=== PATIENT | male | born 1955 | race Caucasian/White ===

== ENCOUNTER 2017-08-06 15:03 | Inpatient (IN) | payer OTHER, MEDICAID ==
--- NOTE | 2017-08-06 15:39 | EDPHY ---
H & P Time Seen by Provider: 08/06/17 15:10 HPI/ROS: CHIEF COMPLAINT: Increasing weakness and unable to get out of bed HISTORY OF PRESENT ILLNESS: Long history of multiple sclerosis. The patient usually manages at home but today his legs were too stiff in his weakness was so great that he had called the fire department twice for lift assist which is not normal for him. He started feeling sick about 2 nights ago with cloudy urine and lower and upper back pain and urinary urgency which he thinks are his typical UTI symptoms. Weakness started then and is worse today. At 5:00 a.m. Today he had to awaken to self cath legs and bladder spasm and urinary urgency which is very unusual. His weakness is severe at this point. He was unable to get himself out of the bed at home. Not associated with fever chills or difficulty with speaking or anything focal. REVIEW OF SYSTEMS: Eye: no change in vision ENT: no sore throat Cardiac: no chest pain or syncope Pulmonary: no cough or SOB Abdomen: no vomiting, diarrhea, abdominal pain Musculoskeletal: Back and leg spasms. Skin: buttock rash, unchanged Neuro: no headache Constitutional: no fever : HPI A comprehensive 10 point review of systems is otherwise negative aside from elements mentioned in the history of present illness. PAST MEDICAL HISTORY: Includes multiple sclerosis and multiple UTIs. Thyroid removal, thyroid cancer, TIA. Social history: Lives independently General Appearance: Alert and conversant, cooperative. Eyes: No scleral icterus. ENT, Mouth: Normal mucous membranes. Respiratory: Normal respiratory effort, breath sounds equal, lungs are clear to auscultation. Cardiovascular: Regular rate and rhythm. Gastrointestinal: Abdomen is soft and non tender. Neurological: Alert, responds appropriately to commands, fluent speech, face symmetric. Left arm strength greater than right which is typical for him as he uses his right hand on his wheelchair joystick and uses left arm for most strength requirements. Skin: Some redness bilaterally and his buttock area at but no skin breakdown or evidence of cellulitis or lymphangitis. Musculoskeletal: No peripheral edema. Psychiatric: Not agitated. Emergency Department course/MDM: CBC chemistry and urinalysis. Likely admission for worsening weakness, probable pyelonephritis with systemic symptoms including elevated white blood cell count and systemic weakness. Primary care is Dr. Novak, neurologist is Gilbert Jenkins. 1614: White blood cell count [id number] with positive urinalysis. Will admit for UTI with worsening multiple sclerosis. Previous urine cultures reviewed on 02/21 and 08/24/2016 and 08/14/2015 all E coli or Klebsiella sensitive to everything except amoxicillin once. The patient also has a history of Enterococcus. He said he has had Rocephin multiple times before without any adverse reaction. Plan for IV ceftriaxone 1 g and IV doxycycline to cover for enterococcus. Has elevated WBC, but does not have SIRS criteria on arrival. Smoking Status: Never smoked Constitutional: Initial Vital Signs Temperature (C) 37.3 C 08/06/17 15:13 Heart Rate 85 08/06/17 15:13 Respiratory Rate 16 08/06/17 15:13 Blood Pressure 134/80 H 08/06/17 15:13 O2 Sat (%) 97 08/06/17 15:13 O2 Delivery Mode Room Air Allergies/Adverse Reactions: Penicillins Allergy (Severe, Verified 08/06/17 15:10) Anaphylaxis iodine Allergy (Mild, Verified 08/06/17 17:34) Rash Home Medications: Medication Instructions Recorded Baclofen [Baclofen 10 mg (*)] 5 mg PO Q2H PRN 09/07/13 Aspirin [Aspirin 81mg (*)] 81 mg PO HS 09/26/14 Dalfampridine [AMPYRA] 10 mg PO BIDMEAL 09/26/14 Cholecalciferol Vit D3 [Vitamin D3 3,000 units PO DAILY 01/12/15 (*)] Gabapentin [Neurontin 300 MG (*)] 1,200 mg PO HS PRN 01/12/15 Gabapentin [Neurontin 300 MG (*)] 300 mg PO TIDMEAL 01/12/15 Oxybutynin Chloride [Ditropan] 5 mg PO HS 01/12/15 Diazepam [Valium 5 MG (*)] 5 mg PO HS PRN 10/21/15 Levothyroxine [Synthroid 125 mcg 125 mcg PO DAILY06 10/21/15 (*)] Methenamine Hippurate [METHENAMINE 1 g PO BID 10/21/15 HIPPURATE] Gabapentin [Neurontin 300 MG (*)] 300 mg PO DAILY@18 08/06/17 Herbals/Supplements -Info Only 1 ea PO DAILY 08/06/17 Naproxen Sodium [Aleve 220 MG (*)] 220 mg PO DAILY 08/06/17 Ocrevus 600 mg IV Q6M 08/06/17 Potassium Chloride [Klor-Con 10] 10 meq PO DAILY@18 08/06/17 traMADol [Ultram 50 mg (*)] 50 mg PO BID PRN 08/06/17 Medical Decision Making Differential Diagnosis: Differential considered including but not limited to renal colic, UTI, urinary retention, pyelonephritis Consult/Admit Bed Type: [place] [address] - Data Points Laboratory Results: Laboratory Results 08/06/17 15:50 08/06/17 15:50 08/06/17 08/06/17 08/06/17 15:50 15:50 15:35 WBC 19.53 10^3/uL H 10^3/uL (3.80-9.50) RBC 5.06 10^6/uL 10^6/uL (4.40-6.38) Hgb 16.9 g/dL g/dL (13.7-17.5) Hct 49.8 % % (40.0-51.0) MCV 98.4 fL fL (81.5-99.8) MCH 33.4 pg pg (27.9-34.1) MCHC 33.9 g/dL g/dL (32.4-36.7) RDW 12.7 % % (11.5-15.2) Plt Count 152 10^3/uL 10^3/uL (150-400) MPV 11.0 fL fL (8.7-11.7) Neut % (Auto) 87.4 % H % (39.3-74.2) Lymph % (Auto) 5.1 % L % (15.0-45.0) Gates % (Auto) 6.8 % % (4.5-13.0) Eos % (Auto) 0.0 % L % (0.6-7.6) Baso % (Auto) 0.2 % L % (0.3-1.7) Nucleat RBC Rel Count 0.0 % % (0.0-0.2) Absolute Neuts (auto) 17.09 10^3/uL H 10^3/uL (1.70-6.50) Absolute Lymphs (auto) 0.99 10^3/uL L 10^3/uL (1.00-3.00) Absolute Monos (auto) 1.32 10^3/uL H 10^3/uL (0.30-0.80) Absolute Eos (auto) 0.00 10^3/uL L 10^3/uL (0.03-0.40) Absolute Basos (auto) 0.03 10^3/uL 10^3/uL (0.02-0.10) Absolute Nucleated RBC 0.00 10^3/uL 10^3/uL (0-0.01) Immature Gran % 0.5 % % (0.0-1.1) Immature Gran # 0.10 10^3/uL 10^3/uL (0.00-0.10) Sodium 144 mEq/L mEq/L (135-145) Potassium 4.6 mEq/L mEq/L (3.5-5.2) Chloride 103 mEq/L mEq/L (97-110) Carbon Dioxide 29 mEq/l mEq/l (22-31) Anion Gap 12 mEq/L mEq/L (8-16) BUN 15 mg/dL mg/dL (7-23) Creatinine 0.8 mg/dL mg/dL (0.7-1.3) Estimated GFR > 60 Glucose 127 mg/dL H mg/dL (70-100) Calcium 9.5 mg/dL mg/dL (8.5-10.4) Urine Color YELLOW Urine Appearance HAZY Urine pH 6.0 (5.0-7.5) Ur Specific Sterling 1.011 (1.002-1.030) Urine Protein NEGATIVE (NEGATIVE) Urine Ketones NEGATIVE (NEGATIVE) Urine Blood NEGATIVE (NEGATIVE) Urine Nitrate NEGATIVE (NEGATIVE) Urine Bilirubin NEGATIVE (NEGATIVE) Urine Urobilinogen NEGATIVE EU EU (0.2-1.0) Ur Leukocyte Esterase 3+ H (NEGATIVE) Urine RBC 3-5 /hpf H /hpf (0-3) Urine WBC 50-182 /hpf H /hpf (0-3) Ur Epithelial Cells NONE SEEN /lpf /lpf (NONE-1+) Urine Bacteria 1+ /hpf H /hpf (NONE SEEN) Urine Yeast PRESENT /hpf /hpf (NONE SEEN) Urine Glucose NEGATIVE (NEGATIVE) Medications Given: Ceftriaxone Sodium/Dextrose (Rocephin 1 Gm (Premix)) 50 mls @ 100 mls/hr IV ONCE ONE Stop: 08/06/17 17:44 Last Admin: 08/06/17 17:00 Dose: 50 mls Discontinued Medications Diazepam (Valium) 5 mg IVP EDNOW ONE Stop: 08/06/17 17:18 Last Admin: 08/06/17 17:22 Dose: 5 mg Sodium Chloride (Ns) 1,000 mls @ 0 mls/hr IV EDNOW ONE; Wide Open PRN Reason: Protocol Stop: 08/06/17 16:49 Last Admin: 08/06/17 17:11 Dose: 1,000 mls Departure - Departure Dis[facility]: [facility] Acute Clinical Impression: Acute pyelonephritis Condition: Good
[2017-08-06 16:03] LABS: PLATELET COUNT 152 10^3/uL (150-400)
[2017-08-06] MEDS ORDERED: cefTRIAXone 1 GM in STERILE WATER INJ 10 ML IV ONE (16:32)
[2017-08-06] MEDS ORDERED: DOXYCYCLINE INJ 100 MG in NS 250 ML IV ONE (16:33)
[2017-08-06] MEDS ORDERED: NS 1,000 ML IV ONE ×2 (16:48)
[2017-08-06] MEDS ORDERED: cefTRIAXone 1 GM/DEXTROSE 1 GM/50 ML BAG IV ONE (17:03)
[2017-08-06] MEDS ORDERED: DIAZEPAM 5 MG/ML 1 ML SYR IVP ONE (17:17)
[2017-08-06] MEDS ORDERED: ACETAMINOPHEN 325 MG TAB PO PRN (17:29)
[2017-08-06] MEDS ORDERED: ONDANSETRON 4 MG/2 ML VIAL IVP PRN (17:29)
[2017-08-06] MEDS ORDERED: ONDANSETRON DISINTEGRATING 4 MG TAB PO PRN (17:29)
[2017-08-06] MEDS ORDERED: traMADol 50 MG TAB PO PRN (19:48)
[2017-08-06] MEDS: NS 1,000 ML IV SCH (20:09)
[2017-08-06] MEDS: METHENAMINE HIPP 1 GM TAB PO SCH (20:12)
[2017-08-06] MEDS: GABAPENTIN 300 MG CAP PO PRN (21:10)
[2017-08-06] MEDS: OXYBUTYNIN CHLORIDE 5 MG TAB PO SCH (21:11)
[2017-08-06] MEDS: DIAZEPAM 5 MG TAB PO PRN (21:11)
[2017-08-06] MEDS: ASPIRIN 81 MG CHEWABLE TAB PO SCH (21:11)
--- NOTE | 2017-08-06 21:12 | GHP ---
[f rep st] HISTORY AND PHYSICAL DATE OF ADMISSION: 08/06/2017 CHIEF COMPLAINT: Weakness. HISTORY OF PRESENT ILLNESS: This is a 62-year-old male with a history of fairly progressive MS. He is wheelchair bound. He does straight cath. He has had urinary tract infection in the past. Two da ys ago, he did have a little bit of discomfort with urination. He then had some increasing spasms, w hich he usually gets with urinary tract infections. He felt better yesterday, but then last night, t his again came back and worsened. This morning, he was too weak to get out of the bathroom and saldana d for assistance. The 2nd time he called for assistance, he came to the emergency department. He de nied any fevers or chills. No abdominal pain. No nausea, vomiting, or diarrhea. REVIEW OF SYSTEMS: A 10-point review of systems was obtained and, other than stated, was negative. PAST MEDICAL HISTORY: 1. MS, being followed by Dr. Jenkins. He is getting some biologics. 2. Multiple urinary tract infections. Last several have been E coli, although he has had enterococc us in the past. 3. Hypothyroidism. 4. Does straight cath with history of previous urinary tract infections. 5. History of thyroid cancer. 6. History of TIA. PAST SURGICAL HISTORY: Left thyroid removal. MEDICATIONS: Reviewed. SOCIAL HISTORY: Patient lives alone. He is not . 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 FAMILY HISTORY: No history of MS. PHYSICAL EXAM: VITAL SIGNS: Afebrile, blood pressure is 123/67, heart rate 92, oxygen saturation is 95% on room air. GENERAL: The patient is well developed, no apparent distress. HEENT: Nonicteric sclerae. Extraocular movements intact. Slightly dry mucous membranes. NECK: Supple. No thyromeg kendrick. LUNGS: Good effort. Clear to auscultation bilaterally. CARDIOVASCULAR: Regular rate and rhy thm. No murmurs, rubs, or gallops. ABDOMEN: Positive bowel sounds. Soft, nontender, nondistended. No hepatosplenomegaly. EXTREMITIES: No clubbing, cyanosis, or edema. There is atrophy. NEUROLOG IC: Alert and oriented x3. PSYCHIATRIC: Normal mood and affect. LABS: White blood cell count 19, hemoglobin 16, platelets 152. Chemistries normal. UA does show ur inary tract infection. ASSESSMENT AND PLAN: 1. This is 62-year-old male who does straight catheterize due to multiple sclerosis, presenting with urinary tract infection. Patient is being admitted. He has been given ceftriaxone in the emergency department as well as doxycycline. We will continue ceftriaxone and will hold on the doxycycline. It has been 3 years since his last enterococcus. We will wait for cultures. We will see what his wh ite blood cell count does. 2. Multiple sclerosis with spasm. We will give a dose of Valium right now for his spasms. We will continue his baclofen. 3. Deep vein thrombosis prophylaxis. [employer]. /[id number]/MODL
[2017-08-07] MEDS ORDERED: NS 1,000 ML IV ONE (02:11)
--- NOTE | 2017-08-07 03:27 | HOSPPROG ---
Hospitalist Progress Note Assessment/Plan: XC: Alerted by RN about SBP of 77. Patient mentating well but feeling weak on my evaluation. SBP improved to 85 after 500 mL bolus. Will continue fluid resuscitation and continue current course of treatment as long as he remains fluid responsive. If not fluid responsive, will broaden abx coverage and transfer to ICU. Objective: Vital Signs Temp Pulse Resp BP Pulse Ox 37.9 C 108 H 16 85/55 L 93 08/06/17 23:28 08/06/17 23:28 08/06/17 23:28 08/06/17 23:28 08/06/17 23:28 ICD10 Worksheet Patient Problems: Problems Problem Status Onset Acute pyelonephritis Acute Blurred vision Acute Fever Acute Generalized weakness Acute Multiple sclerosis Acute TIA (transient ischemic attack) Acute
[2017-08-07] MEDS: NS 1,000 ML IV SCH (04:11)
[2017-08-07] MEDS: BACLOFEN 10 MG TAB PO PRN ×4 (04:15→23:18)
[2017-08-07 04:51] LABS: PLATELET COUNT 109 10^3/uL (150-400)
[2017-08-07] MEDS: LEVOTHYROXINE 125 MCG TAB PO SCH (05:36)
[2017-08-07] MEDS ORDERED: NON-FORMULARY NEW DRUG (Dalfampridine [Ampyra] 10 MG) PO SCH (08:00)
[2017-08-07] MEDS: NAPROXEN SODIUM 220 MG TAB PO SCH (08:05)
[2017-08-07] MEDS: GABAPENTIN 300 MG CAP PO SCH ×3 (08:06→17:15)
[2017-08-07] MEDS: ENOXAPARIN 40 MG/0.4 ML SYR SC SCH (08:06)
[2017-08-07] MEDS: METHENAMINE HIPP 1 GM TAB PO SCH ×2 (08:06→20:40)
--- NOTE | 2017-08-07 09:25 | PDMN ---
Medical Necessity Medical necessity: Patient meets inpatient criteria per physician note and [facility] [place] [place] M -300 Pyelonephritis, Acute (history of fairly progressive MS, now w/c bound and self-cathing; history mult UTI's; leukocytosis/WBC > 19,000; hypotension to 70' s systolic and tachycardic to 108 after admission; anticipated LOS > 2 midnights for ongoing IV hydration and antibiotics.)
--- NOTE | 2017-08-07 10:11 | ASMTCASEMG ---
Living Arrangements What is your living Answers: Alone arrangement? Who do you live with? Type Of Residence What kind of residence do Answers: House you live in? Discharge Plan Comments Coordination Status Comments Notes: Pts case discussed w/ Cherry, pharmacist, SARAHY Rhodes, and Mary Abbott NP. Pt is a 62 y/o man admitted for a UTI, multiple sclerosis and pyelonephritis. Therapies have been ordered and awaiting recommendations. Needs are TBD. CM met w/ pt for dispo planning. Pt reports that he has a bottle caser through [facility]. Pt has snf skilled home health through [facility]. CM left a msg for Airam, his bottle caser (P#: [phone]). Pt is current w/ [facility]. Pt reports that he enjoys his [employer]. Updates sent to [facility]. CM to follow. Plan: [facility] Date Signed: 08/07/2017 10:10 AM Electronically Signed By:JOYCE Colby
--- NOTE | 2017-08-07 14:15 | HOSPPROG ---
Hospitalist Progress Note Assessment/Plan: 62y male with hx of MS and weakness. First encounter, chart reviewed. #UTI -urine cx pending -cont CTX -self caths due to MS #MS -increased weakness 2/2 infection -PT/OT #Hypotension -responded to fluid bolus -stable #Weakness -2/2 above -PT/OT #Dispo -wait urine cx results -cont abx therapy Subjective: Feeling much better today. Still weak, no pain. Objective: Vital Signs Temp Pulse Resp BP Pulse Ox 36.7 C 71 16 120/81 H 96 08/07/17 12:00 08/07/17 12:00 08/07/17 12:00 08/07/17 12:00 08/07/17 12:00 Laboratory Results 08/07/17 04:15 08/07/17 04:15 08/06/17 08/07/17 08/08/17 05:59 05:59 05:59 Intake Total 1999 Balance 1999 - Physical Exam Constitutional: appears nourished, not in pain, chronically ill appearing Eyes: PERRL, anicteric sclera, EOMI Ears, Nose, Mouth, Throat: moist mucous membranes, hearing normal, ears appear normal Cardiovascular: No JVD, No tachycardia, No edema Respiratory: no respiratory distress, no rales or rhonchi, reduced air movement Gastrointestinal: normoactive bowel sounds, No tenderness, No ascites Skin: warm, normal color, No mottled Musculoskeletal: no joint effusions, muscular tenderness, generalized weakness Neurologic: AAOx3 Psychiatric: interacting appropriately, not anxious, not encephalopathic, thought process linear ICD10 Worksheet Patient Problems: Problems Problem Status Onset Blurred vision Acute Multiple sclerosis Acute TIA (transient ischemic attack) Acute Fever Acute Generalized weakness Acute Acute pyelonephritis Acute
[2017-08-07] MEDS: POTASSIUM CL 10 MEQ TAB PO SCH (17:12)
[2017-08-07] MEDS: NON-FORMULARY NEW DRUG (Dalfampridine [Ampyra] 10 MG) PO SCH (17:21)
[2017-08-07] MEDS ORDERED: NON-FORMULARY NEW DRUG (Potassium Chloride [Klor-Con 10] 10 MEQ) PO SCH (18:00)
[2017-08-07] MEDS ORDERED: GABAPENTIN 300 MG CAP PO SCH (18:00)
[2017-08-07] MEDS: ASPIRIN 81 MG CHEWABLE TAB PO SCH (20:40)
[2017-08-07] MEDS: OXYBUTYNIN CHLORIDE 5 MG TAB PO SCH (20:40)
[2017-08-07] MEDS: DIAZEPAM 5 MG TAB PO PRN (23:18)
[2017-08-07] MEDS: GABAPENTIN 300 MG CAP PO PRN (23:18)
[2017-08-08] MEDS: LEVOTHYROXINE 125 MCG TAB PO SCH (05:05)
[2017-08-08] MEDS: ENOXAPARIN 40 MG/0.4 ML SYR SC SCH (08:07)
[2017-08-08] MEDS: NAPROXEN SODIUM 220 MG TAB PO SCH (08:08)
[2017-08-08] MEDS: METHENAMINE HIPP 1 GM TAB PO SCH ×2 (08:08→20:11)
[2017-08-08] MEDS: GABAPENTIN 300 MG CAP PO SCH ×3 (08:08→17:03)
--- NOTE | 2017-08-08 08:39 | HOSPPROG ---
Hospitalist Progress Note Assessment/Plan: 62y male with hx of progressive MS and weakness. First encounter, chart reviewed. #UTI -urine cx shows e coli, sensitivities pending -cont CTX -self caths due to MS #MS -increased weakness 2/2 infection -PT/OT -more weak than his baseline today, received baclofen and Valium last night, will hold Valium, he is more flaccid with muscle tone -if not better tomorrow, will ask neurology to see -I'm concerned he lives alone and is not close to his baseline -reviewed his care with OT, recommendation is IP rehab, will order and see if he can qualify #Hypotension -resolved with hydration #Dispo -pending Subjective: Elfego said he is feeling extremely weak, more than his baseline. He said it is not a MS exacerbation. Objective: Vital Signs Temp Pulse Resp BP Pulse Ox 37.1 C 79 16 125/84 H 95 08/08/17 07:40 08/08/17 07:40 08/08/17 07:40 08/08/17 07:40 08/08/17 07:40 Laboratory Results 08/07/17 04:15 08/07/17 04:15 08/07/17 08/08/17 08/09/17 05:59 05:59 05:59 Intake Total 1999 1075 Output Total 437 Balance 1999 -3299 - Physical Exam Constitutional: chronically ill appearing, other (thin) Eyes: PERRL Ears, Nose, Mouth, Throat: hearing normal Cardiovascular: regular rate and rhythym Respiratory: no respiratory distress Gastrointestinal: normoactive bowel sounds Genitourinary: ryan in urethra Skin: warm Musculoskeletal: generalized weakness Neurologic: AAOx3 Psychiatric: interacting appropriately ICD10 Worksheet Patient Problems: Problems Problem Status Onset Acute pyelonephritis Acute Blurred vision Acute Fever Acute Generalized weakness Acute Multiple sclerosis Acute TIA (transient ischemic attack) Acute
[2017-08-08] MEDS: NON-FORMULARY NEW DRUG (Dalfampridine [Ampyra] 10 MG) PO SCH ×2 (10:04→17:04)
[2017-08-08] MEDS ORDERED: LACTULOSE 20 GM/30 ML UDCUP PO PRN (13:34)
[2017-08-08] MEDS ORDERED: MAGNESIUM HYDROXIDE 30 ML UDCUP PO PRN (13:34)
[2017-08-08] MEDS ORDERED: BISACODYL 10 MG SUPP PR PRN (13:34)
[2017-08-08] MEDS: POLYETHYLENE GLYCOL 3350 17 GM PKT PO SCH (16:31)
[2017-08-08] MEDS: POTASSIUM CL 10 MEQ TAB PO SCH (17:03)
[2017-08-08] MEDS: OXYBUTYNIN CHLORIDE 5 MG TAB PO SCH (20:11)
[2017-08-08] MEDS: ASPIRIN 81 MG CHEWABLE TAB PO SCH (20:11)
[2017-08-08] MEDS: SENNOSIDES/DOCUSATE SODIUM TAB PO SCH (20:12)
[2017-08-09] MEDS: LEVOTHYROXINE 125 MCG TAB PO SCH (04:37)
[2017-08-09] MEDS: NON-FORMULARY NEW DRUG (Dalfampridine [Ampyra] 10 MG) PO SCH ×2 (08:14→17:25)
[2017-08-09] MEDS: GABAPENTIN 300 MG CAP PO SCH ×3 (08:23→17:58)
[2017-08-09] MEDS: BACLOFEN 10 MG TAB PO PRN ×3 (08:23→20:57)
[2017-08-09] MEDS: NAPROXEN SODIUM 220 MG TAB PO SCH (08:24)
[2017-08-09] MEDS: METHENAMINE HIPP 1 GM TAB PO SCH ×2 (08:24→20:45)
[2017-08-09] MEDS: SENNOSIDES/DOCUSATE SODIUM TAB PO SCH ×2 (08:25→20:45)
[2017-08-09] MEDS: ENOXAPARIN 40 MG/0.4 ML SYR SC SCH (08:26)
[2017-08-09] MEDS: POLYETHYLENE GLYCOL 3350 17 GM PKT PO SCH (08:27)
--- NOTE | 2017-08-09 09:52 | HOSPPROG ---
Hospitalist Progress Note Assessment/Plan: 62y male with hx of progressive MS and weakness. #UTI -urine cx shows e coli, tubbs sensitive -cont CTX -self caths due to MS #MS, concerned he has an exacerbation -he has gotten progressively weaker even w treatment for UTI -spoke w neurology and they will see him #Hypotension -intermittent #Dispo -pending, spoke w Elfego that he will need more care, he wants to go home badly but now is requiring 3 people to get him oob Subjective: Elfego is very concerned about his increased weakness, has difficulty w eating, using the phone, can't get oob Objective: Vital Signs Temp Pulse Resp BP Pulse Ox 36.9 C 82 16 112/71 94 08/09/17 08:00 08/09/17 08:00 08/09/17 08:00 08/09/17 08:00 08/09/17 08:00 Laboratory Results 08/07/17 04:15 08/07/17 04:15 08/08/17 08/09/17 08/10/17 05:59 05:59 05:59 Intake Total 1075 1330 Output Total 4375 2575 Balance -3300 -1245 - Physical Exam Constitutional: not in pain, chronically ill appearing Eyes: PERRL Ears, Nose, Mouth, Throat: hearing normal Cardiovascular: regular rate and rhythym Respiratory: no respiratory distress Gastrointestinal: normoactive bowel sounds Musculoskeletal: other (significant weakness, having some spasticity today.) Neurologic: AAOx3 Psychiatric: interacting appropriately, depressed ICD10 Worksheet Patient Problems: Problems Problem Status Onset Acute pyelonephritis Acute Blurred vision Acute Fever Acute Generalized weakness Acute Multiple sclerosis Acute TIA (transient ischemic attack) Acute
--- NOTE | 2017-08-09 14:24 | ASMTCMCOM ---
CM Note CM Note Notes: Spoke with patient about discharge planning. RN and OT wondered if patient might need SNF since he required multiple people to assist him in transferring out of bed this morning. 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 When I spoke to him about SNF vs home with home care, he said that he was feeling significantly better than he did this morning when he too was concerned about his status. He feels comfortable going home, and in fact is requesting to do so. I will send [facility] updated notes in anticipation of his discharge tomorrow. I had also made referrals to [facility] and [facility] and will wait until tomorrow to alert them of patient's decision. I spoke with his [facility] dredge engineer Airam [phone] who requests that we let her know what patient's discharge plan is. She will be out of town until 08/15 but we can leave her a message. Date Signed: 08/09/2017 02:23 PM Electronically Signed By:Ruby Hernandez RN
--- NOTE | 2017-08-09 14:36 | NEUROPROG ---
Assessment: Will get brain and cervical MRI w/ and w/o con to assess multiple sclerosis status and see patient in morning. Objective: Vital Signs Temp Pulse Resp BP Pulse Ox 36.9 C 82 16 112/71 94 08/09/17 08:00 08/09/17 08:00 08/09/17 08:00 08/09/17 08:00 08/09/17 08:00 Laboratory Results 08/07/17 04:15 08/07/17 04:15 08/08/17 08/09/17 08/10/17 05:59 05:59 05:59 Intake Total 1075 1330 Output Total 6803 5332 Balance -1936 -2174 Allergies/Adverse Reactions: Penicillins Allergy (Severe, Verified 08/07/17 17:17) Anaphylaxis iodine Allergy (Mild, Verified 08/06/17 17:34) Rash
[2017-08-09] MEDS: POTASSIUM CL 10 MEQ TAB PO SCH (17:25)
[2017-08-09] MEDS: OXYBUTYNIN CHLORIDE 5 MG TAB PO SCH (20:45)
[2017-08-09] MEDS: ASPIRIN 81 MG CHEWABLE TAB PO SCH (20:45)
[2017-08-10] MEDS: BACLOFEN 10 MG TAB PO PRN ×4 (01:58→20:11)
[2017-08-10] MEDS: LEVOTHYROXINE 125 MCG TAB PO SCH (04:36)
[2017-08-10] MEDS: NAPROXEN SODIUM 220 MG TAB PO SCH (08:22)
[2017-08-10] MEDS: GABAPENTIN 300 MG CAP PO SCH ×3 (08:22→17:31)
[2017-08-10] MEDS: METHENAMINE HIPP 1 GM TAB PO SCH ×2 (08:22→20:11)
[2017-08-10] MEDS: ENOXAPARIN 40 MG/0.4 ML SYR SC SCH (08:26)
[2017-08-10] MEDS: SENNOSIDES/DOCUSATE SODIUM TAB PO SCH ×2 (08:27→20:13)
[2017-08-10] MEDS: POLYETHYLENE GLYCOL 3350 17 GM PKT PO SCH (08:28)
[2017-08-10] MEDS: NON-FORMULARY NEW DRUG (Dalfampridine [Ampyra] 10 MG) PO SCH ×2 (08:29→17:32)
[2017-08-10] MEDS ORDERED: DIAZEPAM 5 MG/ML 1 ML SYR IVP ONE (09:27)
--- NOTE | 2017-08-10 09:30 | HOSPPROG ---
Hospitalist Progress Note Assessment/Plan: 62y male with hx of progressive MS and weakness. #UTI -urine cx shows e coli, tubbs sensitive -cont CTX -self caths due to MS #MS, concerned he has an exacerbation -he has gotten progressively weaker even w treatment for UTI -initially declined the MRI, but now is willing to do it today, he's mostly concerned about his thoracic spine area, has very poor trunk control; will add thoracic to be evaluated -he is unable to self cath during his hospitalization stay #Hypotension -intermittent #Dispo -pending/ Elfego wants to go home "only" but still is requiring assist x 3. I think the MRI would be helpful to him getting an understanding of his MS. He has gone back and forth about getting the MRI's done. Will await and see, discussed his care with Dr Stoddard. Subjective: Elfego says he is feeling stronger. Objective: Vital Signs Temp Pulse Resp BP Pulse Ox 37.0 C 83 18 106/63 93 08/10/17 07:38 08/10/17 07:38 08/10/17 07:38 08/10/17 07:38 08/10/17 07:38 Laboratory Results 08/07/17 04:15 08/07/17 04:15 08/09/17 08/10/17 08/11/17 05:59 05:59 05:59 Intake Total 1330 250 Output Total 2575 1650 Balance -1245 -1400 - Physical Exam Constitutional: chronically ill appearing Eyes: PERRL Ears, Nose, Mouth, Throat: hearing normal Respiratory: no respiratory distress Genitourinary: ryan in urethra Skin: warm Musculoskeletal: generalized weakness Neurologic: AAOx3 Psychiatric: interacting appropriately ICD10 Worksheet Patient Problems: Problems Problem Status Onset Acute pyelonephritis Acute Blurred vision Acute Fever Acute Generalized weakness Acute Multiple sclerosis Acute TIA (transient ischemic attack) Acute
--- NOTE | 2017-08-10 09:44 | NEUROPROG ---
Assessment: [id number] - Neurology Consult: - CC: Inpatient consult for possible multiple sclerosis (MS) exacerbation - HPI: Pt has history of progressive multiple sclerosis (wheelchair bound) followed by Dr. Jenkins in my practice. His MS is treated with octrevus. He uses a urinary catheter at baseline for urination. On 08/04/17 he noted dysuria and spasms which have been present with prior UTIs. He noted on 08/06/17 he felt generally weak so he present to [facility] ER where he was admitted for suspected UTI. He was placed on antibiotics but felt he continued to get weaker and was concerned about a multiple sclerosis exacerbation. I initially saw the patient on 08/10/17. I recommended a brain and cervical MRI but the patient declined the study. He reported he prefers to speak with his neurologist, Dr. Jenkins, after discharge from the hospital to determine any need for MRI imaging. - PMHx: multiple sclerosis, multiple UTIs, hypothyroidism and thyroid cancer, TIA - SHx: lives alone FHx: no multiple sclerosis - ROS: Pt denied acute fever, total vision loss, active severe chest pain, respiratory failure, total body severe rash, psychosis, active seizures, or active bleeding; he does have bowel/bladder issues from multiple sclerosis - O: VS reviewed General: Alert Eyes: Fundoscopic exam not able to visualize optic disks CV: Heart RRR, no murmur, no carotid bruit Lungs: Clear to auscultation bilaterally, no rhonchi or rales Neuro: - Mental: . Oriented x person/place/date . concentration appears normal . speech fluency/comprehension normal . memory appears normal . fund of knowledge appear intact - Cranial Nerves: . II: PERRL, VFFTC . III/IV/: EOMI, no nystagmus, normal smooth pursuits, no Ptosis . V: facial sensation intact to LT . VII: face symmetric to eye closure and smile . VIII: hearing intact to conversation . IX/X: uvula raises symmetrically . XI: SCM 5/5 B/L strength . XII: tongue protrudes midline w/nl strength - Motor: . Tone: normal tone in all 4 extremity . Strength: R>L arm weakness, severe weakness in both legs - Reflexes: B/L bic/BR 2/4 - Sensory: all 4 extremity intact to light touch - Coord: problems with MARCELO with hands - Gait: deferred - Labs: 08/06/17- CBC WBC 19.53, Chem Gluc 127H, UA 3+ LE, 08/06/17 E.coli positive - Assessment: 1. Multiple Sclerosis: Pt is wheelchair bound and self caths at baseline due to progressive multiple sclerosis. He feels weaker and is concerned he may have an MS exacerbation. However, he declined any MRI imaging at this time and prefers to just f/u with his outpatient neurologist. - 2. UTI: treated by hospitalist on antibiotics - Plan: - Brain and Cervical MRI w/ and w/o con (patient declined study) - Agree with antibiotics for UTI - F/U with Dr. Jenkins 1-2 weeks after hospital discharge - No further neurologic w/u needed at this time as pt is declining evaluation. Objective: Vital Signs Temp Pulse Resp BP Pulse Ox 37.0 C 83 18 106/63 93 08/10/17 07:38 08/10/17 07:38 08/10/17 07:38 08/10/17 07:38 08/10/17 07:38 Laboratory Results 08/07/17 04:15 08/07/17 04:15 08/09/17 08/10/17 08/11/17 05:59 05:59 05:59 Intake Total 1330 250 Output Total 3575 8960 450 Balance -1245 -1400 450 Allergies/Adverse Reactions: Penicillins Allergy (Severe, Verified 08/07/17 17:17) Anaphylaxis iodine Allergy (Mild, Verified 08/06/17 17:34) Rash
[2017-08-10] MEDS ORDERED: GADOBUTROL 10 ML VIAL IVP ONE (14:40)
[2017-08-10] MEDS: POTASSIUM CL 10 MEQ TAB PO SCH (17:31)
[2017-08-10] MEDS: ASPIRIN 81 MG CHEWABLE TAB PO SCH (20:11)
[2017-08-10] MEDS: OXYBUTYNIN CHLORIDE 5 MG TAB PO SCH (20:11)
[2017-08-11] MEDS: BACLOFEN 10 MG TAB PO PRN ×4 (00:52→20:31)
[2017-08-11] MEDS: LEVOTHYROXINE 125 MCG TAB PO SCH (05:42)
[2017-08-11] MEDS: NAPROXEN SODIUM 220 MG TAB PO SCH ×2 (09:01→11:38)
[2017-08-11] MEDS: METHENAMINE HIPP 1 GM TAB PO SCH ×2 (09:01→20:29)
[2017-08-11] MEDS: SENNOSIDES/DOCUSATE SODIUM TAB PO SCH ×2 (09:01→21:15)
[2017-08-11] MEDS: ENOXAPARIN 40 MG/0.4 ML SYR SC SCH (09:02)
[2017-08-11] MEDS: GABAPENTIN 300 MG CAP PO SCH ×3 (09:02→18:08)
[2017-08-11] MEDS: NON-FORMULARY NEW DRUG (Dalfampridine [Ampyra] 10 MG) PO SCH ×2 (09:03→18:09)
[2017-08-11] MEDS: POLYETHYLENE GLYCOL 3350 17 GM PKT PO SCH (09:05)
--- NOTE | 2017-08-11 09:33 | HOSPPROG ---
Hospitalist Progress Note Assessment/Plan: 62y male with hx of progressive MS and weakness. #UTI -urine cx shows e coli, tubbs sensitive -received full treatment with ceftriaxone -self caths due to MS #MS -reviewed his care with Dr Stoddard, patient has lesions consistent w his MS/ reviewed his MRI w Dr Stoddard -will see if he improves with IV steroids x 3 days #spasticity -due to the above -should get better w steroids #Hypotension -intermittent #Dispo -hopefully, can go home Monday, he has 6 hours of home care, does not want to discuss going to SNF. Will await and see how he does with steroids. Subjective: Dru is c/o spasiticity to his lower extremeties. Objective: Vital Signs Temp Pulse Resp BP Pulse Ox 36.7 C 74 18 104/65 94 08/11/17 07:26 08/11/17 07:26 08/11/17 07:26 08/11/17 07:26 08/11/17 07:26 Laboratory Results 08/07/17 04:15 08/07/17 04:15 08/10/17 08/11/17 08/12/17 05:59 05:59 05:59 Intake Total 250 100 Output Total 1650 1974 Balance -1400 -6498 - Physical Exam Constitutional: not in pain, chronically ill appearing Eyes: PERRL Ears, Nose, Mouth, Throat: hearing normal Respiratory: no respiratory distress Gastrointestinal: normoactive bowel sounds Skin: warm Musculoskeletal: generalized weakness Neurologic: AAOx3 Psychiatric: interacting appropriately ICD10 Worksheet Patient Problems: Problems Problem Status Onset Acute pyelonephritis Acute Blurred vision Acute Fever Acute Generalized weakness Acute Multiple sclerosis Acute TIA (transient ischemic attack) Acute
--- NOTE | 2017-08-11 09:55 | NEUROPROG ---
Assessment: [id number] - Neurology Consult: - CC: Inpatient consult for possible multiple sclerosis (MS) exacerbation - Narrative Summary: Pt has history of progressive multiple sclerosis (wheelchair bound) followed by Dr. Jenkins in my practice. His MS is treated with ocrevus. He uses a urinary catheter at baseline for urination. On 08/04/17 he noted dysuria and spasms which have been present with prior UTIs. He noted on 08/06/17 he felt generally weak so he present to [facility] ER where he was admitted for suspected UTI. He was placed on antibiotics but felt he continued to get weaker and was concerned about a multiple sclerosis exacerbation. I initially saw the patient on 08/10/17. I recommended a brain and cervical MRI but the patient declined the study. He reported he prefers to speak with his neurologist, Dr. Jenkins, after discharge from the hospital to determine any need for MRI imaging. - HPI: F/U 08/11/17. Pt changed his mind and decided to have MRIs. Brain/cervical/ thoracic MRI results below but did not show any clear no enhancing lesions. We discussed his current status which is weaker than his baseline despite treating the UTI and we decided to try 3 days of IV steroids to see if this returns him to his baseline so he can discharge to his home. He is happy with that plan. No new complaints. - PMHx: multiple sclerosis, multiple UTIs, hypothyroidism and thyroid cancer, TIA - SHx: lives alone FHx: no multiple sclerosis - ROS: Pt denied acute fever, total vision loss, active severe chest pain, respiratory failure, total body severe rash, psychosis, active seizures, or active bleeding; he does have bowel/bladder issues from multiple sclerosis - Labs: 08/06/17- CBC WBC 19.53, Chem Gluc 127H, UA 3+ LE, 08/06/17 E.coli positive - Rads: Brain MRI w/ and w/o con: Multiple demyelinating plaques similar to the November 2015 study, without definite new demyelinating plaques or enhancing lesions. No acute hemorrhage, definite acute infarct, hydrocephalus or mass effect. Mild cerebral atrophy. Postcontrast images limited due to patient motion artifact. Cervical MRI w/ and w/o con: Limited due to patient motion artifact despite repeat series. Multiple demyelinating plaques, which are difficult to compare to the previous study due to patient motion artifact but appear at least at the C2-C3, C4-C5, C7 level, and probably upper thoracic spine at the T2 and T3 levels. No cord compression. C5-C6: Mild central canal stenosis and moderate to severe left neural foraminal stenosis secondary to moderate degenerative disk disease, with dorsal disk/osteophyte complex and bilateral uncovertebral osteophytes. Thoracic MRI w/ and w/o con: Demyelinating plaques in the thoracic spinal cord compatible with multiple sclerosis involving the upper and midthoracic regions, although difficult to visualize due to motion artifact. No evidence of thoracic compression fractures, cord compression, central canal stenosis or neural foraminal stenosis. No thoracic disk herniations or significant degenerative changes. 4. No definite enhancing lesions. Markedly limited due to patient motion artifact on all series, but especially the postcontrast. - Assessment: 1. Multiple Sclerosis: Pt is wheelchair bound and self caths at baseline due to progressive multiple sclerosis. Brain/cervical/thoracic MRI w/ and w/o con on showed no clear progression of MS but he remains weaker than baseline so we will give a course of 3 days of IV solumederol 1,000 mg/day and then reassess his status with hopes he can return to his home to live alone. - 2. UTI: treated by hospitalist on antibiotics - Plan: - 3 days of IV solumderol 1,000 mg/day for Multiple sclerosis exacerbation - Agree with antibiotics for UTI - Dr. Jenkins, his outpatient MS neurologist, will be able to assess him on Monday to determine future treatment options and prognosis - 35 min spent with patient at bedside discussing options of treatment. Objective: Vital Signs Temp Pulse Resp BP Pulse Ox 36.7 C 74 18 104/65 94 08/11/17 07:26 08/11/17 07:26 08/11/17 07:26 08/11/17 07:26 08/11/17 07:26 Laboratory Results 08/07/17 04:15 08/07/17 04:15 08/10/17 08/11/17 08/12/17 05:59 05:59 05:59 Intake Total 250 100 Output Total 1650 1975 Balance 1400 -2143 Allergies/Adverse Reactions: Penicillins Allergy (Severe, Verified 08/07/17 17:17) Anaphylaxis iodine Allergy (Mild, Verified 08/06/17 17:34) Rash
[2017-08-11] MEDS: methylPREDNISolone SOD SUCC 1 GM in D5W 100 ML IV SCH (10:21)
--- NOTE | 2017-08-11 17:24 | ASMTCMCOM ---
CM Note CM Note Notes: Met with pt re; dc poc. Pt still declining SNF, feels he is back to baseline and wants to go home. He will be here through the weekend and possible dc on Monday. Discussed if he wanted to changes his homecare agency as he is unhappy with them, pt would like to change but does not want to do it at this discharge. He will discuss it with his [facility] telephonic case manager. CM gave him a list of homecare agencies to review for whenever he is ready to switch. DC Plan: Home care/ [facility] Date Signed: 08/11/2017 05:23 PM Electronically Signed By:Opal Owen RN
[2017-08-11] MEDS: POTASSIUM CL 10 MEQ TAB PO SCH (18:08)
[2017-08-11] MEDS: ASPIRIN 81 MG CHEWABLE TAB PO SCH (20:29)
[2017-08-11] MEDS: OXYBUTYNIN CHLORIDE 5 MG TAB PO SCH (20:29)
[2017-08-11] MEDS: DIAZEPAM 5 MG TAB PO PRN (21:55)
[2017-08-12] MEDS: BACLOFEN 10 MG TAB PO PRN ×5 (03:55→23:43)
[2017-08-12] MEDS: LEVOTHYROXINE 125 MCG TAB PO SCH (05:41)
[2017-08-12] MEDS: NAPROXEN SODIUM 220 MG TAB PO SCH (08:45)
[2017-08-12] MEDS: METHENAMINE HIPP 1 GM TAB PO SCH ×2 (08:47→21:14)
[2017-08-12] MEDS: GABAPENTIN 300 MG CAP PO SCH ×3 (08:47→17:19)
[2017-08-12] MEDS: ENOXAPARIN 40 MG/0.4 ML SYR SC SCH (08:47)
[2017-08-12] MEDS: NON-FORMULARY NEW DRUG (Dalfampridine [Ampyra] 10 MG) PO SCH ×2 (08:49→17:22)
[2017-08-12] MEDS: POLYETHYLENE GLYCOL 3350 17 GM PKT PO SCH (08:49)
[2017-08-12] MEDS: SENNOSIDES/DOCUSATE SODIUM TAB PO SCH ×2 (08:50→21:40)
[2017-08-12] MEDS: methylPREDNISolone SOD SUCC 1 GM in D5W 100 ML IV SCH (08:51)
--- NOTE | 2017-08-12 14:51 | HOSPPROG ---
Hospitalist Progress Note Assessment/Plan: 62y male with hx of progressive MS and weakness. #UTI -urine cx shows e coli, tubbs sensitive -received full treatment with ceftriaxone -self caths due to MS #MS -much improved with IV steroids #2/#3 #spasticity -much improved #Hypotension -intermittent #Dispo -home Monday with home care/ has 6 hours of care daily Subjective: Dru has no complaints, feeling better w steroids. Objective: Vital Signs Temp Pulse Resp BP Pulse Ox 36.6 C 71 16 106/71 93 08/12/17 07:26 08/12/17 07:26 08/12/17 07:26 08/12/17 07:26 08/12/17 07:26 Laboratory Results 08/07/17 04:15 08/07/17 04:15 08/11/17 08/12/17 08/13/17 05:59 05:59 06:59 Intake Total 100 1250 Output Total [address] [facility] -0225 -875 -800 - Physical Exam Constitutional: not in pain, chronically ill appearing Eyes: PERRL Ears, Nose, Mouth, Throat: hearing normal Respiratory: no respiratory distress Skin: warm Musculoskeletal: generalized weakness (but better) Neurologic: AAOx3 Psychiatric: interacting appropriately ICD10 Worksheet Patient Problems: Problems Problem Status Onset Acute pyelonephritis Acute Blurred vision Acute Fever Acute Generalized weakness Acute Multiple sclerosis Acute TIA (transient ischemic attack) Acute
--- NOTE | 2017-08-12 15:47 | ASMTCMCOM ---
CM Note CM Note Notes: Spoke with pt again, regarding transport home, has used medicaid transport in the past. Must be able to take him in his own wheelchair (manual). He will have his friend Anjel as a back up. Date Signed: 08/12/2017 03:47 PM Electronically Signed By:Opal Owen RN
[2017-08-12] MEDS: POTASSIUM CL 10 MEQ TAB PO SCH (17:19)
[2017-08-12] MEDS: ASPIRIN 81 MG CHEWABLE TAB PO SCH (21:14)
[2017-08-12] MEDS: OXYBUTYNIN CHLORIDE 5 MG TAB PO SCH (21:14)
[2017-08-12] MEDS: DIAZEPAM 5 MG TAB PO PRN (23:43)
[2017-08-13] MEDS: LEVOTHYROXINE 125 MCG TAB PO SCH (05:38)
[2017-08-13] MEDS: BACLOFEN 10 MG TAB PO PRN ×3 (05:38→20:44)
[2017-08-13] MEDS: POLYETHYLENE GLYCOL 3350 17 GM PKT PO SCH (08:27)
[2017-08-13] MEDS: GABAPENTIN 300 MG CAP PO SCH ×3 (08:27→17:55)
[2017-08-13] MEDS: METHENAMINE HIPP 1 GM TAB PO SCH ×2 (08:28→20:44)
[2017-08-13] MEDS: NAPROXEN SODIUM 220 MG TAB PO SCH (08:28)
[2017-08-13] MEDS: ENOXAPARIN 40 MG/0.4 ML SYR SC SCH (08:28)
[2017-08-13] MEDS: NON-FORMULARY NEW DRUG (Dalfampridine [Ampyra] 10 MG) PO SCH ×2 (08:30→16:58)
[2017-08-13] MEDS: methylPREDNISolone SOD SUCC 1 GM in D5W 100 ML IV SCH (09:35)
[2017-08-13] MEDS: SENNOSIDES/DOCUSATE SODIUM TAB PO SCH ×2 (09:42→22:00)
--- NOTE | 2017-08-13 11:18 | HOSPPROG ---
Hospitalist Progress Note Assessment/Plan: 62y male with hx of progressive MS and weakness. #UTI -urine cx shows e coli, tubbs sensitive -received full treatment with ceftriaxone -self caths due to MS #MS -much improved with IV steroids #3/#3 #spasticity -initially improved, but kept him awake last night even w Baclofen and Valium -trial of Robaxin tonight if needed #Hypotension -intermittent #Dispo -home Monday with home care/ has 6 hours of care daily/ reviewed his care w PT who felt he was at baseline. Spoke w CM who will help arrange a van for transport tomorrow. Dr Jenkins who knows Elfego is on Monday and will see him. Also, may need a script for Robaxin if it helped with his spasticity. Subjective: Elfego is feeling better today. Objective: Vital Signs Temp Pulse Resp BP Pulse Ox 36.6 C 61 14 116/52 L 94 08/13/17 07:47 08/13/17 07:47 08/13/17 07:47 08/13/17 07:47 08/13/17 07:47 Laboratory Results 08/07/17 04:15 08/07/17 04:15 08/12/17 08/13/17 08/14/17 04:59 05:59 05:59 Intake Total Output Total Balance - Physical Exam Constitutional: other (thin) Eyes: PERRL Ears, Nose, Mouth, Throat: hearing normal Cardiovascular: regular rate and rhythym Respiratory: no respiratory distress Skin: warm Musculoskeletal: generalized weakness Neurologic: AAOx3 Psychiatric: interacting appropriately ICD10 Worksheet Patient Problems: Problems Problem Status Onset Acute pyelonephritis Acute Blurred vision Acute Fever Acute Generalized weakness Acute Multiple sclerosis Acute TIA (transient ischemic attack) Acute
[2017-08-13] MEDS ORDERED: METHOCARBAMOL 750 MG TAB PO PRN (11:20)
--- NOTE | 2017-08-13 13:47 | NEUROPROG ---
Assessment: [id number] - Neurology Consult: - CC: Inpatient consult for multiple sclerosis (MS) exacerbation - Narrative Summary: Pt has history of progressive multiple sclerosis (wheelchair bound) followed by Dr. Jenkins in my practice. His MS is treated with ocrevus. He uses a urinary catheter at baseline for urination. On 08/04/17 he noted dysuria and spasms which have been present with prior UTIs. He noted on 08/06/17 he felt generally weak so he present to [facility] ER where he was admitted for suspected UTI. He was placed on antibiotics but felt he continued to get weaker and was concerned about a multiple sclerosis exacerbation. I initially saw the patient on 08/10/17. I recommended a brain and cervical MRI but the patient declined the study. He reported he prefers to speak with his neurologist, Dr. Jenkins, after discharge from the hospital to determine any need for MRI imaging. - F/U 08/11/17. Pt changed his mind and decided to have MRIs. Brain/cervical/ thoracic MRI results below but did not show any clear no enhancing lesions. We discussed his current status which is weaker than his baseline despite treating the UTI and we decided to try 3 days of IV steroids to see if this returns him to his baseline so he can discharge to his home. He is happy with that plan. No new complaints. - HPI: Pt continues to get IV solumederol for worsening multiple sclerosis. He denied new complaints and feels much better today. He is likely going to be able to go home tomorrow. - PMHx: multiple sclerosis, multiple UTIs, hypothyroidism and thyroid cancer, TIA - SHx: lives alone FHx: no multiple sclerosis - ROS: Pt denied acute fever, total vision loss, active severe chest pain, respiratory failure, total body severe rash, psychosis, active seizures, or active bleeding; he does have bowel/bladder issues from multiple sclerosis - Labs: 08/06/17- CBC WBC 19.53, Chem Gluc 127H, UA 3+ LE, 08/06/17 E.coli positive - Rads: Brain MRI w/ and w/o con: Multiple demyelinating plaques similar to the November 2015 study, without definite new demyelinating plaques or enhancing lesions. No acute hemorrhage, definite acute infarct, hydrocephalus or mass effect. Mild cerebral atrophy. Postcontrast images limited due to patient motion artifact. Cervical MRI w/ and w/o con: Limited due to patient motion artifact despite repeat series. Multiple demyelinating plaques, which are difficult to compare to the previous study due to patient motion artifact but appear at least at the C2-C3, C4-C5, C7 level, and probably upper thoracic spine at the T2 and T3 levels. No cord compression. C5-C6: Mild central canal stenosis and moderate to severe left neural foraminal stenosis secondary to moderate degenerative disk disease, with dorsal disk/osteophyte complex and bilateral uncovertebral osteophytes. Thoracic MRI w/ and w/o con: Demyelinating plaques in the thoracic spinal cord compatible with multiple sclerosis involving the upper and midthoracic regions, although difficult to visualize due to motion artifact. No evidence of thoracic compression fractures, cord compression, central canal stenosis or neural foraminal stenosis. No thoracic disk herniations or significant degenerative changes. 4. No definite enhancing lesions. Markedly limited due to patient motion artifact on all series, but especially the postcontrast. - Assessment: 1. Multiple Sclerosis: Pt is wheelchair bound and self caths at baseline due to progressive multiple sclerosis. Brain/cervical/thoracic MRI w/ and w/o con on showed no clear progression of MS but he remains weaker than baseline so we will give a course of 3 days of IV solumedrol 1,000 mg/day and then reassess his status with hopes he can return to his home to live alone. - 2. UTI: treated by hospitalist on antibiotics - Plan: - 3 days of IV solumedrol 1,000 mg/day for Multiple sclerosis exacerbation - Agree with antibiotics for UTI - Dr. Jenkins, his outpatient MS neurologist, will be taking over the service Tomorrow, pt will likely be able to discharge - 35 min spent with patient at bedside discussing options of treatment including prognosis. Objective: Vital Signs Temp Pulse Resp BP Pulse Ox 36.6 C 61 14 116/52 L 94 08/13/17 07:47 08/13/17 07:47 08/13/17 07:47 08/13/17 07:47 08/13/17 07:47 Laboratory Results 08/07/17 04:15 08/07/17 04:15 08/12/17 08/13/17 08/14/17 04:59 05:59 05:59 Intake Total Output Total Balance Allergies/Adverse Reactions: Penicillins Allergy (Severe, Verified 08/07/17 17:17) Anaphylaxis iodine Allergy (Mild, Verified 08/06/17 17:34) Rash
[2017-08-13 15:59] VITALS: RESP 16
[2017-08-13] MEDS: POTASSIUM CL 10 MEQ TAB PO SCH (17:55)
--- NOTE | 2017-08-13 18:02 | ASMTCMCOM ---
CM Note CM Note Notes: Met with patient as he wanted to express concerns over transportation to his home tomorrow. He is a medicaid patient and we will arrange through [place], Is is concerned about someone helping him up his ramp. He does not have a great deal of support He has [facility] set up through [facility] although there has been no response though [employer]. He does have a protective services case worker [facility] [phone] and it may be that communication goes through [facility]. CM will attempt to call in am, JOSE to follow Date Signed: 08/13/2017 05:11 PM Electronically Signed By:Abbey Stubbs RN
[2017-08-13] MEDS: OXYBUTYNIN CHLORIDE 5 MG TAB PO SCH (20:45)
[2017-08-13] MEDS: ASPIRIN 81 MG CHEWABLE TAB PO SCH (20:45)
[2017-08-14] MEDS: DIAZEPAM 5 MG TAB PO PRN (01:24)
[2017-08-14] MEDS: BACLOFEN 10 MG TAB PO PRN ×3 (01:24→10:35)
[2017-08-14] MEDS: LEVOTHYROXINE 125 MCG TAB PO SCH (05:40)
[2017-08-14 07:14] VITALS: BP 115/72; PULSE 61; TEMP 97.7; O2SAT 91
[2017-08-14] MEDS: NON-FORMULARY NEW DRUG (Dalfampridine [Ampyra] 10 MG) PO SCH ×2 (08:31→13:42)
[2017-08-14] MEDS: GABAPENTIN 300 MG CAP PO SCH ×2 (08:32→12:39)
[2017-08-14] MEDS: NAPROXEN SODIUM 220 MG TAB PO SCH (08:32)
[2017-08-14] MEDS: METHENAMINE HIPP 1 GM TAB PO SCH (08:33)
[2017-08-14] MEDS: ENOXAPARIN 40 MG/0.4 ML SYR SC SCH (08:33)
[2017-08-14] MEDS: methylPREDNISolone SOD SUCC 1 GM in D5W 100 ML IV SCH (09:47)
[2017-08-14] MEDS: SENNOSIDES/DOCUSATE SODIUM TAB PO SCH (09:47)
[2017-08-14] MEDS: POLYETHYLENE GLYCOL 3350 17 GM PKT PO SCH (09:47)
--- NOTE | 2017-08-14 11:24 | PDIAF ---
- Diagnosis Diagnosis: MS exacerbation Code Status: Full Code - Medication Management Discharge Medications: Medications to Continue on Transfer Baclofen [Baclofen 10 mg (*)] 5 mg PO Q2H PRN 09/07/13 [Last Taken 08/06/17] Aspirin [Aspirin 81mg (*)] 81 mg PO HS 09/26/14 [Last Taken 08/05/17] Dalfampridine [AMPYRA] 10 mg PO BIDMEAL 09/26/14 [Last Taken 08/06/17 09:00] Cholecalciferol Vit D3 [Vitamin D3 (*)] 3,000 units PO DAILY 01/12/15 [Last Taken 08/06/17] Gabapentin [Neurontin 300 MG (*)] 1,200 mg PO HS PRN 01/12/15 [Last Taken ] Gabapentin [Neurontin 300 MG (*)] 300 mg PO TIDMEAL 01/12/15 [Last Taken ] Oxybutynin Chloride [Ditropan] 5 mg PO HS 01/12/15 [Last Taken 08/05/17] Diazepam [Valium 5 MG (*)] 5 mg PO HS PRN 10/21/15 [Last Taken Unknown] Levothyroxine [Synthroid 125 mcg (*)] 125 mcg PO DAILY06 10/21/15 [Last Taken ] Methenamine Hippurate [METHENAMINE HIPPURATE] 1 g PO BID 10/21/15 [Last Taken ] Gabapentin [Neurontin 300 MG (*)] 300 mg PO DAILY@18 08/06/17 [Last Taken ] Herbals/Supplements -Info Only 1 ea PO DAILY 08/06/17 [Last Taken Unknown] Naproxen Sodium [Aleve 220 MG (*)] 220 mg PO DAILY 08/06/17 [Last Taken 08/06/17 ] Ocrevus 600 mg IV Q6M 08/06/17 [Last Taken 3 Months Ago ~05/08/17] Potassium Chloride [Klor-Con 10] 10 meq PO DAILY@18 08/06/17 [Last Taken ] traMADol [Ultram 50 mg (*)] 50 mg PO BID PRN 08/06/17 [Last Taken Unknown] Acetaminophen [Tylenol 325mg (*)] 650 mg PO Q4HRS PRN tab 08/14/17 [Last Taken Unknown] Polyethylene Glycol 3350 [Miralax 17 gm (*)] 17 gm PO DAILY pkt 08/14/17 [Last Taken Unknown] Sennosides/Docusate Sodium [Senokot-S] 1 - 2 tab PO BID tab 08/14/17 [Last Taken Unknown] Discharge Medications: Refer to the Discharge Home Medication list for PRN reason. PICC Care - Routine: N/A - Orders Services needed: Home Care, Registered Nurse, Certified District [employer], Physical Therapy, Occupational Therapy Home Care Face to Face: I certify that this patient was under my care and that I had the required [id number] encounter meeting the encounter requirements on the discharge day. My findings support the fact that the patient is homebound as defined in Home Care Face to Face Continued: [facility] Chapter 7 Medicare Benefits Manual 30.1.1 , The condition of the patient is such that there exists a normal inability to leave home and consequently, leaving home would require a considerable and taxing effort. Isolation Type: None Diet Recommendation: no restrictions on diet - Follow Up Care Current Providers and Referrals: Chintan Novak MD [Primary Care Provider] - As per Instructions
--- NOTE | 2017-08-14 16:01 | GDS ---
[f rep st] DISCHARGE SUMMARY DISCHARGE DIAGNOSES: 1. Multiple sclerosis exacerbation. 2. Urinary tract infection. 3. Spasticity. 4. Hypotension. CONSULTATIONS: Neurology. PHYSICAL EXAM: GENERAL: The patient is alert. VITAL SIGNS: Afebrile at 36.5, pulse is 61, respira tory rate is 18, blood pressure is 115/72, he is saturating 91% on room air. I have seen and evaluat ed the patient on the day of discharge. HOSPITAL COURSE: The patient is a 62-year-old male who presented to the emergency room with complain ts of weakness. He was evaluated and diagnosed with: 1. Urinary tract infection. During this hospitalization, urine culture showed pansensitive E coli. He was treated with antibiotic therapy. He has responded well to treatment. He will continue self- cathing in the outpatient setting. 2. Multiple sclerosis exacerbation. Neurology did evaluate the patient during this hospital course. He was treated with 3 doses of IV steroids. He has completed this course and his strength has impr [place]. 3. Spasticity. This is a chronic problem for the patient. He is continued on his previously prescr ibed medications. 4. Hypotension. This is likely secondary to the patient's chronic disease process. He is hemodynam ically stable at the time of disposition and asymptomatic during his hypotension. DISPOSITION: The patient will be discharged home with home health care. He has been offered intermediate facility, but has refused. He has almost returned to his baseline. There are no pending st udies. DISCHARGE MEDICATIONS: Please refer to EMR form. I have not provided the patient with any new medic ations at the time of disposition. FOLLOWUP: Followup will be with his primary care physician, Dr. Novak, as well as Neurology as ne eded. I have spent greater than 35 minutes in the care, coordination, and management of patient's dispositi on. /[id number]/MODL
--- NOTE | 2017-08-14 16:34 | ASDISCHSUM ---
Discharge Information Plan Status:Home with Home Health Medically Cleared to Leave:08/14/2017 Discharge Date:08/14/2017 03:02 PM CM D/C Disposition: ADT D/C Disposition:HHSNOTBCH Projected Discharge Date:08/14/2017 11:00 AM Transportation at D/C: Discharge Delay Reason: Follow-Up Date:08/14/2017 11:00 AM Discharge Slot: Final Diagnosis: Placement Information Referral Type:*Home Health Care Services Referral ID:[id number] Provider Name:[facility] Maxi [place] Address 1:[address] [place] [address] Phone Number: Address 2: Fax Number: [facility]:[place] Selection Factors: State:[place] Referral Type:*Half-Way/SNF Referral ID:[id number] Provider Name: Address 1: Phone Number: Address 2: Fax Number: City: Selection Factors: State: Patient Contact Information Contact Name:CARLOS Relationship:Friend Address: Work Phone: City: [facility] Phone: [facility] Code: Email: Financial Information Financial Class:Medicare Advantage Plans Primary Plan Desc:[employer] [facility] [employer] Primary Plan Number:[id number] Secondary Plan Desc:[place] Secondary Plan Number:[id number] Assessment Information [facility] Initial CM Assessment Living Arrangements What is your living Answers: Alone arrangement? Who do you live with? Type Of Residence What kind of residence do Answers: House you live in? Discharge Plan Comments Coordination Status Comments Notes: Pts case discussed w/ Cherry, pharmacist, SARAHY Rhodes, and Mary Abbott NP. Pt is a 62 y/o man admitted for a UTI, multiple sclerosis and pyelonephritis. Therapies have been ordered and awaiting recommendations. Needs are TBD. CM met w/ pt for dispo planning. Pt reports that he has a case picker through [facility]. Pt has terminal manager skilled home health through [facility]. CM left a ms for Airam, his case picker (P#: [phone]). Pt is current w/ [facility]. Pt reports that he enjoys his ANIMAL TRAINER. Updates sent to [facility] to follow. Plan: [facility] Date Signed: 08/07/2017 10:10 AM Electronically Signed By:JOYCE Colby [facility] Progress Note CM Note CM Note Notes: Spoke with patient about discharge planning. RN and OT wondered if patient might need SNF since he required multiple people to assist him in transferring out of bed this morning. Patient normally manages at home with daily ANIMAL TRAINER, bi-weekly PT, and bi-weekly caregiver visits. When I spoke to him about SNF vs home with home care, he said that he was feeling significantly better than he did this morning when he too was concerned about his status. He feels comfortable going home, and in fact is requesting to do so. I will send [facility] updated notes in anticipation of his discharge tomorrow. I had also made referrals to [facility] and [facility] and will wait until tomorrow to alert them of patient's decision. I spoke with his [facility] self contained behavior unit teacher Airam [phone] who requests that we let her know what patient's discharge plan is. She will be out of town until 08/15 but we can leave her a message. Date Signed: 08/09/2017 02:23 PM Electronically Signed By:Ruby Hernandez RN [facility] JOSE Progress Note CM Note CM Note Notes: Met with pt re; dc poc. Pt still declining SNF, feels he is back to baseline and wants to go home. He will be here through the weekend and possible dc on Monday. Discussed if he wanted to changes his homecare agency as he is unhappy with them, pt would like to change but does not want to do it at this discharge. He will discuss it with his [facility] case resolution specialist. CM gave him a list of homecare agencies to review for whenever he is ready to switch. DC Plan: Home care/ [facility] Date Signed: 08/11/2017 05:23 PM Electronically Signed By:Opal Owen RN [facility] JOSE Progress Note JOSE Note JOSE Note Notes: Spoke with pt again, regarding transport home, has used medicaid transport in the past. Must be able to take him in his own wheelchair (manual). He will have his friend Anjel as a back up. Date Signed: 08/12/2017 03:47 PM Electronically Signed By:Opal Owen RN [facility] Progress Note JOSE Note JOSE Note Notes: Met with patient as he wanted to express concerns over transportation to his home tomorrow. He is a medicaid patient and we will arrange through [facility], Is is concerned about someone helping him up his ramp. He does not have a great deal of support He has [facility] set up through [facility] although there has been no response though allscripts. He does have a case picker Airam [phone] and it may be that communication goes through [facility]. JOSE will attempt to call in amJOSE to follow Date Signed: 08/13/2017 05:11 PM Electronically Signed By:Abbey Stubbs RN Case Management Discharge Plan Note Case Management Discharge Discharge Order Complete? Answers: Yes Patient to Obtain Answers: Independently Medications Transportation Arranged Answers: Other Notes: [facility] will Pick (Date 08/14/2017 02:00 PM & Time) EMTALA Complete Answers: No Case Management Transport Answers: Yes Form Complete Faxed Final Orders Answers: Yes Agency/Facility Transfer Answers: Yes Report Printed & Faxed to Receiving Agency Discharge Comments Notes: Pt is being discharged today. CM arranged for [facility] to pick pt up. Confirmation number from [facility] is [id number]. DC orders sent to [facility]. Pt reports that he plans on staying w/ [facility] for the time being. Pt notified lino Alegria case picker from [facility] of the hospital d/c. CM available for changes. Plan: [facility], PT, OT, RN, ANIMAL TRAINER Date Signed: 08/14/2017 10:30 AM Electronically Signed By:JOYCE Colby Intervention Information Intervention Type:*IM-Signed Date of Service:08/14/2017 12:01 PM Patient Type:Inpatient Staff Member:Ivet Martinez Hours: Discipline: Severity: Comment:
== END 2017-08-14 15:02 | disposition home health service (06) | DRG 59 ==
LOC: F3E 17:26
PROVIDERS: ADMIT Internal Medicine; ATTEND Internal Medicine
DX: G35 Multiple sclerosis (principal); M62.838 Other muscle spasm; N39.0 Urinary tract infection, site not specified; B96.20 Unspecified Escherichia coli [E. coli] as the cause of diseases classified elsewhere; I95.89 Other hypotension; E03.9 Hypothyroidism, unspecified; Z85.850 Personal history of malignant neoplasm of thyroid; Z86.73 Personal history of transient ischemic attack (TIA), and cerebral infarction without residual deficits; Z99.3 Dependence on wheelchair
CPT/HCPCS: 96365; 97110-GP; 97112-GO; 97162-GP; 97166-GO; 97530-GO; 97530-GP; 97535-GO; A9585; G8978-GP-CK; G8979-GP-CI; G8980-GP-CI; G8987-GO-CK; G8988-GO-CJ; J0696; J1650; J2930; J3360

== ENCOUNTER 2017-11-23 22:52 | Observation (INO) | payer OTHER, MEDICAID ==
--- NOTE | 2017-11-23 23:04 | EDPHY ---
H & P Time Seen by Provider: 11/23/17 23:04 HPI/ROS: HPI CHIEF COMPLAINT: Possible urinary tract infection HISTORY OF PRESENT ILLNESS: Very pleasant 62-year-old male, he has a history of MS, he presents emergency room stating that he has increased spasms in his left leg. He also reports increased urgency. He thinks he may have another urinary tract infection. He does self cath. He denies any back pain or fever denies vomiting. His symptoms started getting worse around 3 o'clock in the afternoon. Denies chest pain or shortness of breath. His main spasms left leg. Past Medical History: History of MS, recurrent UTI, specificity, and self caths Past Surgical History: No recent surgery. Social History: Denies drugs alcohol tobacco. Family History: Noncontributory ROS REVIEW OF SYSTEMS: A comprehensive 10 point review of systems is otherwise negative aside from elements mentioned in the history of present illness. Exam Constitutional nontoxic appearing, no acute distress, triage nursing summary reviewed, vital signs reviewed, awake/alert. Eyes normal conjunctivae and sclera, EOMI, PERRLA. HENT normal inspection, atraumatic, moist mucus membranes, no epistaxis, neck supple/ no meningismus, no raccoon eyes. Respiratory clear to auscultation bilaterally, normal breath sounds, no respiratory distress, no wheezing. Cardiovascular rate normal, regular rhythm, no murmur, no edema, distal pulses normal. Gastrointestinal soft, non-tender, no rebound, no guarding, normal bowel sounds, no distension, no pulsatile mass. Genitourinary no CVA tenderness. Musculoskeletal left leg is more spasm. Right leg and right upper extremity more rigid. Skin pink, warm, & dry, no rash, skin atraumatic. Neurologic awake, alert and oriented x 3, AAOx3, moves all 4 extremities equally, motor intact, sensory intact, CN II-XII intact, normal cerebellar, normal vision, normal speech. Psychiatric normal mood/affect. Heme/Lymph/Immune no lymphadenopathy. Differential Diagnosis: Includes but is not limited to in a particular order, UTI, cystitis, dehydration, electrolyte disturbance, increasing spasms, Medical Decision Making: Plan for this patient cath urine, IV establishment IV fluid bolus 1 L normal saline, IV Ativan 0.5 for spasms, check basic blood work and re-evaluate. Re-evaluation: 1224AM: Patient here with urinary tract infection with spasms with global weakness in the setting of MS. He would prefer to me admitted due to that he lives alone and has to make multiple transfers in his wheelchair in is feeling globally weak from his urinary tract infection. Plan will be for hospital admission. Source: Patient - Personal History Tetanus Vaccine Date: 06/2011 - Medical/Surgical History Hx Asthma: No Hx Chronic Respiratory Disease: No Hx Diabetes: No Hx Cardiac Disease: No Hx Renal Disease: No Hx Cirrhosis: No Hx Alcoholism: No Hx HIV/AIDS: No Hx Splenectomy or Spleen Trauma: No Other PMH: Multiple sclerosis, TIA in September 2014, thyroid CA- thyroid removed 30yrs ago, neurogenic bladder, sepsis - Social History Smoking Status: Never smoked Constitutional: Initial Vital Signs Temperature (C) 36.7 C 11/23/17 23:05 Heart Rate 75 11/23/17 23:05 Respiratory Rate 16 11/23/17 23:05 Blood Pressure 132/82 H 11/23/17 23:05 O2 Sat (%) 96 11/23/17 23:05 O2 Delivery Mode Room Air Allergies/Adverse Reactions: Penicillins Allergy (Severe, Verified 08/07/17 17:17) Anaphylaxis iodine Allergy (Mild, Verified 08/06/17 17:34) Rash Home Medications: Medication Instructions Recorded Baclofen [Baclofen 10 mg (*)] 5 - 10 mg PO QID PRN 09/07/13 Aspirin [Aspirin 81mg (*)] 81 mg PO HS 09/26/14 Dalfampridine [AMPYRA] 10 mg PO BIDMEAL 09/26/14 Cholecalciferol Vit D3 [Vitamin D3 3,000 units PO DAILY 01/12/15 (*)] Gabapentin [Neurontin 300 MG (*)] 900 mg PO HS 01/12/15 Oxybutynin Chloride [Ditropan] 5 mg PO HS 01/12/15 Diazepam [Valium 5 MG (*)] 2.5 - 5 mg PO HS PRN 10/21/15 Methenamine Hippurate [METHENAMINE 1 g PO DAILY@10/21/15 HIPPURATE] Gabapentin [Neurontin 300 MG (*)] 300 mg PO DAILY@18 08/06/17 Herbals/Supplements -Info Only 1 ea PO DAILY 08/06/17 Naproxen Sodium [Aleve 220 MG (*)] 220 mg PO DAILY 08/06/17 Ocrevus 600 mg IV Q6M 08/06/17 Potassium Chloride [Klor-Con 10] 10 meq PO DAILY@18 08/06/17 Polyethylene Glycol 3350 [Miralax 17 gm PO DAILY pkt 08/14/17 17 gm (*)] Acyclovir [Zovirax 400 mg (*)] 400 mg PO BID 11/24/17 Ascorbic Acid [Vitamin C] 100 mg PO DAILY@,11/24/17 Levothyroxine [Synthroid 100 mcg 100 mcg PO DAILY06 11/24/17 (*)] Ciprofloxacin [Cipro] 500 mg PO BID@1000,1999 #14 tab 11/25/17 Medical Decision Making - Data Points Laboratory Results: Laboratory Results 11/23/17 23:15 11/23/17 23:15 Microbiology Results: MICROBIOLOGY 11/23/17 23:45 Urine,Catheterized Urine Culture - Preliminary Staphylococcus Sp Coag Neg Medications Given: Discontinued Medications Baclofen (Baclofen) 5 - 10 mg PO QID PRN PRN Reason: Spasms Stop: 05/23/18 10:49 Last Admin: 11/24/17 22:03 Dose: 10 mg Cholecalciferol (Vitamin D) 3,000 units PO DAILY YLRIC Stop: 05/24/18 08:59 Last Admin: 11/25/17 09:46 Dose: 3,000 units Diazepam (Valium) 5 mg PO HS PRN PRN Reason: spasm, cramps Stop: 05/23/18 22:31 Last Admin: 11/24/17 23:23 Dose: 5 mg Enoxaparin Sodium (Lovenox) 40 mg SC DAILY LYRIC Stop: 05/23/18 08:59 Last Admin: 11/25/17 09:47 Dose: 40 mg Gabapentin (Neurontin) 900 mg PO HS LYRIC Stop: 05/23/18 22:44 Last Admin: 11/24/17 23:21 Dose: 900 mg Sodium Chloride (Ns) 1,000 mls @ 0 mls/hr IV EDNOW ONE; Wide Open PRN Reason: Protocol Stop: 11/23/17 23:15 Last Admin: 11/23/17 23:21 Dose: 1,000 mls Ceftriaxone Sodium/Dextrose (Rocephin 1 Gm (Premix)) 50 mls @ 100 mls/hr IV EDNOW ONE PRN Reason: Protocol Stop: 11/24/17 00:52 Last Admin: 11/24/17 00:38 Dose: 50 mls Ceftriaxone Sodium/Dextrose (Rocephin 1 Gm (Premix)) 50 mls @ 100 mls/hr IV DAILY LYRIC PRN Reason: Protocol Stop: 12/24/17 21:59 Last Admin: 11/25/17 09:54 Dose: Not Given Sodium Chloride (Ns) 1,000 mls @ 100 mls/hr IV CONT LYRIC Stop: 05/23/18 12:44 Last Admin: 11/25/17 09:48 Dose: 1,000 mls Levothyroxine Sodium (Synthroid) 100 mcg PO DAILY06 LYRIC Stop: 05/24/18 05:59 Last Admin: 11/25/17 05:35 Dose: 100 mcg Lorazepam (Ativan Injection) 0.5 mg IVP EDNOW ONE Stop: 11/23/17 23:16 Last Admin: 11/23/17 23:24 Dose: 0.5 mg Methenamine Mandelate (Methenamine Ines) 1 gm PO DAILY@12,21 LYRIC PRN Reason: Protocol Stop: 12/25/17 11:59 Last Admin: 11/25/17 13:14 Dose: Not Given Miscellaneous Medication (Dalfampridine [Ampyra]) 10 mg PO BIDMEAL LYRIC Stop: 05/24/18 07:59 Last Admin: 11/25/17 09:54 Dose: Not Given Naproxen (Aleve) 220 mg PO DAILY LYRIC Stop: 05/24/18 08:59 Last Admin: 11/25/17 09:47 Dose: 220 mg Oxybutynin Chloride (Ditropan) 5 mg PO HS LYRIC Stop: 05/23/18 20:59 Last Admin: 11/25/17 00:58 Dose: Not Given Polyethylene Glycol (Miralax) 17 gm PO DAILY LYRIC Stop: 05/24/18 08:59 Last Admin: 11/25/17 09:54 Dose: 17 gm Departure - Departure Disposition: [facility] Acute Clinical Impression: Generalized weakness, Spasms of the hands or feet UTI (urinary tract infection) Qualifiers: Urinary tract infection type: acute cystitis Hematuria presence: with hematuria Qualified Code(s): N30.01 - Acute cystitis with hematuria Condition: Good
[2017-11-23] MEDS ORDERED: NS 1,000 ML IV ONE (23:14)
[2017-11-23] MEDS ORDERED: LORazepam 2 MG/ML INJ IVP ONE (23:15)
[2017-11-23 23:34] LABS: PLATELET COUNT 173 10^3/uL (150-400)
[2017-11-24] MEDS ORDERED: ONDANSETRON DISINTEGRATING 4 MG TAB PO PRN (00:27)
[2017-11-24] MEDS ORDERED: ACETAMINOPHEN 325 MG TAB PO PRN (00:27)
[2017-11-24] MEDS ORDERED: ONDANSETRON 4 MG/2 ML VIAL IVP PRN (00:27)
--- NOTE | 2017-11-24 01:38 | PDGENHP ---
History and Physical - Chief Complaint Urinary frequency, spasms - History of Present Illness 62 yo M w/ hx of MS and frequent UTI's presents with increased urinary frequency and leg spasms. He states these are the usual symptoms for him when he has a UTI. He was admitted here in August with a similar presentation. Work- up in the ED notable for grossly infectious UA. He feels improved after fluids, antibiotics, and lorazepam for spasms. However, he does not feel well enough to cope at home noting he lives alone and must independently manage all of his transfers. History Information - Allergies/Home Medication List Allergies/Adverse Reactions: Penicillins Allergy (Severe, Verified 08/07/17 17:17) Anaphylaxis iodine Allergy (Mild, Verified 08/06/17 17:34) Rash Home Medications: Baclofen [Baclofen 10 mg (*)] 5 mg PO Q2H PRN 09/07/13 [Last Taken 08/06/17] Aspirin [Aspirin 81mg (*)] 81 mg PO HS 09/26/14 [Last Taken 08/05/17] Dalfampridine [AMPYRA] 10 mg PO BIDMEAL 09/26/14 [Last Taken 08/06/17 09:00] Cholecalciferol Vit D3 [Vitamin D3 (*)] 3,000 units PO DAILY 01/12/15 [Last Taken 08/06/17] Gabapentin [Neurontin 300 MG (*)] 1,200 mg PO HS PRN 01/12/15 [Last Taken ] Gabapentin [Neurontin 300 MG (*)] 300 mg PO TIDMEAL 01/12/15 [Last Taken ] Oxybutynin Chloride [Ditropan] 5 mg PO HS 01/12/15 [Last Taken 08/05/17] Diazepam [Valium 5 MG (*)] 5 mg PO HS PRN 10/21/15 [Last Taken Unknown] Levothyroxine [Synthroid 125 mcg (*)] 125 mcg PO DAILY06 10/21/15 [Last Taken ] Methenamine Hippurate [METHENAMINE HIPPURATE] 1 g PO BID 10/21/15 [Last Taken ] Gabapentin [Neurontin 300 MG (*)] 300 mg PO DAILY@18 08/06/17 [Last Taken ] Herbals/Supplements -Info Only 1 ea PO DAILY 08/06/17 [Last Taken Unknown] Naproxen Sodium [Aleve 220 MG (*)] 220 mg PO DAILY 08/06/17 [Last Taken 08/06/17 ] Ocrevus 600 mg IV Q6M 08/06/17 [Last Taken 3 Months Ago ~05/08/17] Potassium Chloride [Klor-Con 10] 10 meq PO DAILY@18 08/06/17 [Last Taken ] traMADol [Ultram 50 mg (*)] 50 mg PO BID PRN 08/06/17 [Last Taken Unknown] I have personally reviewed and updated: family history, medical history - Past Medical History Additional medical history: MS. Thyroid CA. Hypothyroid - Surgical History Additional surgical history: Thyroid surgery - Family History Additional family history: Denies family hx of MS - Social History Smoking Status: Never smoked Review of Systems Review of Systems: ROS: 10pt was reviewed & negative except for what was stated in HPI & below Physical Exam Physical Exam: Temp Pulse Resp BP Pulse Ox 36.7 C 68 17 115/67 94 11/24/17 01:32 11/24/17 01:32 11/24/17 01:32 11/24/17 01:32 11/24/17 01:32 Constitutional: no apparent distress, not in pain Eyes: PERRL, EOMI Ears, Nose, Mouth, Throat: moist mucous membranes, no oral mucosal ulcers Cardiovascular: regular rate and rhythym, no murmur, rub, or gallop Respiratory: no respiratory distress, clear to auscultation Gastrointestinal: normoactive bowel sounds, soft, non-tender abdomen Skin: warm, normal color Neurologic: AAOx3, weakness (Hands, b/l LE's), CN II-XII Intact Psychiatric: interacting appropriately, not anxious Lab Data & Imaging Review 11/23/17 23:15 11/23/17 23:15 WBC 14.46 10^3/uL (3.80-9.50) H 11/23/17 23:15 RBC 4.91 10^6/uL (4.40-6.38) 11/23/17 23:15 Hgb 16.4 g/dL (13.7-17.5) 11/23/17 23:15 Hct 46.5 % (40.0-51.0) 11/23/17 23:15 MCV 94.7 fL (81.5-99.8) 11/23/17 23:15 MCH 33.4 pg (27.9-34.1) 11/23/17 23:15 MCHC 35.3 g/dL (32.4-36.7) 11/23/17 23:15 RDW 13.0 % (11.5-15.2) 11/23/17 23:15 Plt Count 173 10^3/uL (150-400) 11/23/17 23:15 MPV 11.9 fL (8.7-11.7) H 11/23/17 23:15 Neut % (Auto) 72.8 % (39.3-74.2) 11/23/17 23:15 Lymph % (Auto) 17.0 % (15.0-45.0) 11/23/17 23:15 [place] % (Auto) 9.3 % (4.5-13.0) 11/23/17 23:15 Eos % (Auto) 0.1 % (0.6-7.6) L 11/23/17 23:15 Baso % (Auto) 0.3 % (0.3-1.7) 11/23/17 23:15 Nucleat RBC Rel Count 0.0 % (0.0-0.2) 11/23/17 23:15 Absolute Neuts (auto) 10.53 10^3/uL (1.70-6.50) H 11/23/17 23:15 Absolute Lymphs (auto) 2.46 10^3/uL (1.00-3.00) 11/23/17 23:15 Absolute Monos (auto) 1.35 10^3/uL (0.30-0.80) H 11/23/17 23:15 Absolute Eos (auto) 0.01 10^3/uL (0.03-0.40) L 11/23/17 23:15 Absolute Basos (auto) 0.04 10^3/uL (0.02-0.10) 11/23/17 23:15 Absolute Nucleated RBC 0.00 10^3/uL (0-0.01) 11/23/17 23:15 Immature Gran % 0.5 % (0.0-1.1) 11/23/17 23:15 Immature Gran # 0.07 10^3/uL (0.00-0.10) 11/23/17 23:15 VBG Lactic Acid 0.8 mmol/L (0.7-2.1) 18 00:35 Sodium 138 mEq/L (135-145) 11/23/17 23:15 Potassium 3.7 mEq/L (3.3-5.0) 11/23/17 23:15 Chloride 104 mEq/L (97-110) 11/23/17 23:15 Carbon Dioxide 24 mEq/l (22-31) 11/23/17 23:15 Anion Gap 10 mEq/L (8-16) 11/23/17 23:15 BUN 15 mg/dL (7-23) 11/23/17 23:15 Creatinine 0.6 mg/dL (0.7-1.3) L 11/23/17 23:15 Estimated GFR > 60 11/23/17 23:15 Glucose 102 mg/dL (70-100) H 11/23/17 23:15 Calcium 9.0 mg/dL (8.5-10.4) 11/23/17 23:15 Urine Color YELLOW 11/23/17 23:45 Urine Appearance CLEAR 11/23/17 23:45 Urine pH 6.0 (5.0-7.5) 11/23/17 23:45 Ur Specific [place] 1.008 (1.002-1.030) 11/23/17 23:45 Urine Protein NEGATIVE (NEGATIVE) 11/23/17 23:45 Urine Ketones NEGATIVE (NEGATIVE) 11/23/17 23:45 Urine Blood 2+ (NEGATIVE) H 11/23/17 23:45 Urine Nitrate NEGATIVE (NEGATIVE) 11/23/17 23:45 Urine Bilirubin NEGATIVE (NEGATIVE) 11/23/17 23:45 Urine Urobilinogen NEGATIVE EU (0.2-1.0) 11/23/17 23:45 Ur Leukocyte Esterase 3+ (NEGATIVE) H 11/23/17 23:45 Urine RBC 3-5 /hpf (0-3) H 11/23/17 23:45 Urine WBC 50-182 /hpf (0-3) H 11/23/17 23:45 Ur Epithelial Cells NONE SEEN /lpf (NONE-1+) 11/23/17 23:45 Urine Glucose NEGATIVE (NEGATIVE) 11/23/17 23:45 Assessment & Plan Assessment: 62 yo M w/ MS p/w UTI leading to weakness and increased spasms. Plan: 1. UTI - Frequency and bladder spasms x1 day + infectious appearing UA. He has hx of frequent UTI's; last in August notable for pansensitive E. Coli. No evidence of sepsis physiology currently. - Admit for observation - CTX 1 g qD, urine culture pending - Discussed case w/ ED physician, previous records reviewed 2. MS - Wheelchair dependent but lives alone and can usually manage transfers independently. Acute infection has led to increased weakness and spasticity. - PT/OT evaluations - Straight cath PRN 3. Hx thyroid CA - S/p surgery, now on LTX. Diet - Regular Code - Full Ppx - LMWH Dispo - Admit under observation status
[2017-11-24 05:19] LABS: PLATELET COUNT 146 10^3/uL (150-400)
[2017-11-24] MEDS: ENOXAPARIN 40 MG/0.4 ML SYR SC SCH (10:29)
[2017-11-24] MEDS: BACLOFEN 10 MG TAB PO PRN ×2 (11:27→22:03)
--- NOTE | 2017-11-24 15:55 | ASMTCMCOM ---
CM Note CM Note Notes: Pt with MS in for UTI, spacity, dehydration. Pt resides alone. OT rec home/HHC/SNF, PT rec SNF. Pt open with [facility] for PT/[employer]PER[employer]ET[employer] and has [employer] rep services. Pt has [employer]PER[employer]ET[employer] care 2 hours in am 5 days/wk, [employer] rep 4 hours 2 days/wk and PT 2/wk. Pt wants to return home tomorrow with resumed services of [facility] and [facility]. Referral sent to [facility] in [employer]. Pt requests Medicaid [place] transport home. D/c plan of care: Home with [facility] and [facility] Date Signed: 11/24/2017 03:54 PM Electronically Signed By:LYNDA Kolb
--- NOTE | 2017-11-24 17:49 | HOSPPROG ---
Hospitalist Progress Note Assessment/Plan: Subjective Follow-up on urinary tract infection and bladder spasms. Patient states he has felt weaker as the days progressed as he has not been able to keep up with water intake as it is exacerbating his bladder spasms. He asked about the possibility of doing a short-term Warner catheter along with IV fluids to help his hydration status. He thought if we did this that he would probably have the strength tomorrow to possibly return home. But currently does not feel he has a strength to return home. Objective Vital signs as detailed below Physical exam General-patient is lying on his right side when I went to see him he was arousable awake alert conversant able to write a good history Heart-regular rate and rhythm no murmurs appreciated Lungs-Clear to auscultation normal respiratory effort Abdomen-soft nontender nondistended no Warner catheter in place Extremities-no significant pitting edema Labs as detailed below Assessment plan Urinary tract infection-we will continue with the ceftriaxone and await culture and sensitivities. If he continues to improve clinically we could likely discharge him with oral antibiotics based upon prior sensitivities with the plan for short-term follow up with Dr. Novak. Leukocytosis-improved with current antibiotic therapy. Multiple sclerosis-continue current medical therapy Hypothyroidism-patient has history of thyroid cancer in the past. Continue with current levothyroxine. DVT prophylaxis-Lovenox Disposition-potential discharge tomorrow depending on clinical status. Objective: Vital Signs Temp Pulse Resp BP Pulse Ox 36.7 C 85 16 123/75 H 95 11/24/17 16:00 11/24/17 16:00 11/24/17 16:00 11/24/17 16:00 11/24/17 16:00 Laboratory Results 11/24/17 05:05 11/24/17 05:05 11/23/17 11/24/17 11/25/17 05:59 05:59 05:59 Intake Total 1200 500 Output Total 200 450 Balance 1000 50 ICD10 Worksheet Patient Problems: Problems Problem Status Onset Generalized weakness Acute Spasms of the hands or feet Acute UTI (urinary tract infection) Acute Acute pyelonephritis Acute Blurred vision Acute Fever Acute Multiple sclerosis Acute TIA (transient ischemic attack) Acute
[2017-11-24] MEDS ORDERED: OXYBUTYNIN CHLORIDE 5 MG TAB PO SCH (21:00)
[2017-11-24] MEDS ORDERED: DIAZEPAM 5 MG TAB PO PRN (22:32)
[2017-11-24] MEDS ORDERED: GABAPENTIN 300 MG CAP PO SCH (22:45)
[2017-11-24] MEDS: NS 1,000 ML IV SCH (23:29)
[2017-11-25] MEDS ORDERED: LEVOTHYROXINE 100 MCG TAB PO SCH (06:00)
[2017-11-25 07:45] VITALS: BP 101/59
[2017-11-25] MEDS ORDERED: CHOLECALCIFEROL VIT D3 1,000 UNITS TAB PO SCH (09:00)
[2017-11-25] MEDS ORDERED: NAPROXEN SODIUM 220 MG TAB PO SCH (09:00)
[2017-11-25] MEDS ORDERED: POLYETHYLENE GLYCOL 3350 17 GM PKT PO SCH (09:00)
[2017-11-25] MEDS: ENOXAPARIN 40 MG/0.4 ML SYR SC SCH (09:47)
[2017-11-25] MEDS: NS 1,000 ML IV SCH (09:48)
--- NOTE | 2017-11-25 11:02 | GDS ---
[f rep st] DISCHARGE SUMMARY PRIMARY CARE PROVIDER: Dr. Chintan Novak DISCHARGE DIAGNOSIS: Urinary tract infection. The patient is a pleasant 62-year-old gentleman with a past medical history of multiple sclerosis, wh o has a history of urinary tract infection that typically results in worsening bladder spasms. He st arted to notice these symptoms and started on Keflex at home. He took one dose, but his symptoms bec michelle increasingly more severe, so he presented to the emergency room for additional evaluation. The i nitial urinalysis showed 3+ leukocyte esterase, negative nitrite. Final urine culture is still curre ntly pending, but clinically the patient has improved significantly and feels strong enough to return home today. His white blood cell count was initially 14 on admission and on recheck had decreased t o 9.8. HOSPITAL COURSE BY PROBLEM: 1. Urinary tract infection, clinically improving. Continue with ciprofloxacin 500 mg twice a day fo r 7 additional days. He has received 2 doses of ceftriaxone here in the hospital. Await final cultu re and sensitivities. I recommended a followup visit with Dr. Chintan Novak next week for reasses sment. 2. Leukocytosis, resolving. 3. Multiple sclerosis. No medication changes were made during this hospitalization. 4. Hypothyroidism. He is continued on levothyroxine. 5. DVT prophylaxis. The patient was on enoxaparin during this hospitalization. DISPOSITION: Patient appears stable for discharge home today. Social Work is involved with his care and making necessary arrangements for transfer back to home. EXAM: On day of discharge: VITAL SIGNS: Temperature 36.8, blood pressure 101/59, heart rate 73, re spirations 16, saturating 95% on room air. GENERAL: Patient appears comfortable. He is sitting in his wheelchair at the bedside. No acute distress. HEART: Regular. No murmurs appreciated. LUNGS: Clear on auscultation. Normal respiratory effort. ABDOMEN: Soft, nontender, nondistended. : Warner catheter is in place with clear yellow urine. This will be removed prior to discharge. EXTREM ITIES: No significant pitting edema. NOTABLE STUDIES: As detailed above. DISCHARGE MEDICATIONS: 1. Ciprofloxacin 500 mg twice a day. 2. Baclofen 5-10 mg 4 times a day as needed for spasms. 3. Dalfampridine 10 mg twice a day. 4. Aspirin 81 mg daily. 5. Vitamin D supplementation. 6. Gabapentin 900 mg nightly. 7. Oxybutynin 5 mg nightly. 8. Diazepam 2.5 to 5 mg nightly as needed for muscle spasms or cramping. 9. Methenamine 1 g daily. 10. Potassium chloride 10 mEq daily. 11. Gabapentin 300 mg daily. 12. Naproxen 220 mg daily. 13. MiraLAX 17 g daily. 14. Acyclovir 40 mg twice a day. 15. Levothyroxine 100 mcg daily. DISCHARGE INSTRUCTIONS: I recommend a followup visit with Dr. Novak next week for reassessment of his symptoms and to follow up on final urine culture and sensitivities, which is currently pending a t this point time. 35 minutes of time dedicated to discharge efforts. /[id number]/MODL
[2017-11-25] MEDS ORDERED: METHENAMINE HIPP 1 GM TAB PO SCH (12:00)
--- NOTE | 2017-11-25 15:25 | ASMTLACE ---
LACE Length of stay for Answers: 1 day current admission Acuity / Level of Answers: No Care: Did the patient have an inpatient admission? Comorbidities - select Answers: Any tumor (including all that apply lymphoma or leukemia) Cerebrovascular disease (CVA, TIA, aneurysms, vasc ular dementia) Other Notes: Multiple sclerosis; # of Emergency department Answers: 1-2 visits in the last 6 months Score: 6 Date Signed: 11/25/2017 03:25 PM Electronically Signed By:Cynthia Whitt RN
--- NOTE | 2017-11-25 16:01 | PDIAF ---
- Diagnosis Code Status: Full Code - Medication Management Discharge Medications: Medications to Continue on Transfer Baclofen [Baclofen 10 mg (*)] 5 - 10 mg PO QID PRN 09/07/13 [Last Taken 11/23/17 ] Aspirin [Aspirin 81mg (*)] 81 mg PO HS 09/26/14 [Last Taken 11/22/17] Dalfampridine [AMPYRA] 10 mg PO BIDMEAL 09/26/14 [Last Taken 11/23/17] Cholecalciferol Vit D3 [Vitamin D3 (*)] 3,000 units PO DAILY 01/12/15 [Last Taken 11/23/17] Gabapentin [Neurontin 300 MG (*)] 900 mg PO HS 01/12/15 [Last Taken 11/23/17] Oxybutynin Chloride [Ditropan] 5 mg PO HS 01/12/15 [Last Taken 11/23/17] Diazepam [Valium 5 MG (*)] 2.5 - 5 mg PO HS PRN 10/21/15 [Last Taken Unknown] Methenamine Hippurate [METHENAMINE HIPPURATE] 1 g PO DAILY@10/21/15 [Last Taken 11/23/17] Gabapentin [Neurontin 300 MG (*)] 300 mg PO DAILY@18 08/06/17 [Last Taken ] Herbals/Supplements -Info Only 1 ea PO DAILY 08/06/17 [Last Taken Unknown] Naproxen Sodium [Aleve 220 MG (*)] 220 mg PO DAILY 08/06/17 [Last Taken 11/23/17 ] Ocrevus 600 mg IV Q6M 08/06/17 [Last Taken 11/17/17] Potassium Chloride [Klor-Con 10] 10 meq PO DAILY@18 08/06/17 [Last Taken ] Polyethylene Glycol 3350 [Miralax 17 gm (*)] 17 gm PO DAILY pkt 08/14/17 [Last Taken Unknown] Acyclovir [Zovirax 400 mg (*)] 400 mg PO BID 11/24/17 [Last Taken 11/17/17] Ascorbic Acid [Vitamin C] 100 mg PO DAILY@,11/24/17 [Last Taken 11/23/17] Levothyroxine [Synthroid 100 mcg (*)] 100 mcg PO DAILY06 11/24/17 [Last Taken ] Ciprofloxacin [Cipro] 500 mg PO BID@999,1999 #14 tab 11/25/17 [Last Taken Unknown] Discharge Medications: Refer to the Discharge Home Medication list for PRN reason. PICC Care - Routine: N/A - Orders Services needed: Home Care, Registered Nurse, Certified Assembler [employer], Physical Therapy Home Care Face to Face: I certify that this patient was under my care and that I had the required [id number] encounter meeting the encounter requirements on the discharge day. My findings support the fact that the patient is homebound as defined in Home Care Face to Face Continued: CMS Chapter 7 Medicare Benefits Manual 30.1.1 , The condition of the patient is such that there exists a normal inability to leave home and consequently, leaving home would require a considerable and taxing effort. Isolation Type: None Diet Recommendation: no restrictions on diet Diet Texture: Regular Texture Diet - Follow Up Care Current Providers and Referrals: Chintan Novak MD [Primary Care Provider] - Patient,NotPresent [Unknown] - As per Instructions
[2017-11-25] MEDS ORDERED: GABAPENTIN 300 MG CAP PO SCH (18:00)
--- NOTE | 2017-11-25 19:11 | ASMTDCNOTE ---
Case Management Discharge Discharge Order Complete? Answers: Yes Patient to Obtain Answers: Independently Medications Transportation Arranged Answers: Family/Friends EMTALA Complete Answers: No Notes: N/A Case Management Transport Answers: No Notes: N/A Form Complete Faxed Final Orders Answers: Yes Notes: Sent via [employer]; confirmed receipt with Jasmine Agency/Facility Transfer Answers: Yes Notes: Sent via Report Printed & Faxed to [employer]; confirmed Receiving Agency receipt with Jasmine Family Notified Answers: No Notes: Per pt no one to notify Discharge Comments Notes: Reviewed chart, spoke with SARAHY Pratt and Dr. Mcfarland. Pt to discharge home with resumption of home care services (RN/PT/TELESALES SUPERVISOR/HCBS). Met with pt to discuss discharge plan. Pt agreeable to resuming care with [facility]. Call placed to Jasmine at [facility] . Per Jasmine, able to resume with start of care for Monday11/26/17. Update provided to pt. Discharge orders and paperwork sent via [employer]; confirmed receipt. HUSSEIN signed. Attempted to arrange Medicaid transport on pt's behalf with Yael. First called placed at [phone] . Per Yael, able to provide wheelchair transport within the hour. Second call placed at [phone]. Per Yael, no wheelchair transports available; call sourced to [facility]. Call placed to [place] , spoke with Glory. Per Glory, currently no wheelchair cabs available in [place] at this time; she will continue to work on finding someone. Third call placed at 1530. Placed on hold for 25 minutes with Yael. Fourth call placed to [place], per Glory, still no cabs available. Updates provided to pt. Pt to try to arrange transport with a friend. Four additionnal calls placed to [place] and [facility] between [phone] without success of finding transport. Call also placed to Crow at [facility] - per Crow, no wheelchair transport available in [place]. Crow could send transport from [place], but Medicaid may not cover. Pt arranged for friend Delilah to provide transport. Call placed to [place] and [facility] to cancel request. CM available for any further issues or concerns. Discharge Plan: Home with [facility] and HCBS services Date Signed: 11/25/2017 07:11 PM Electronically Signed By:Cynthia Whitt RN
--- NOTE | 2017-11-25 19:12 | ASDISCHSUM ---
Discharge Information Plan Status:Home with Home Health Medically Cleared to Leave:11/25/2017 Discharge Date:11/25/2017 05:22 PM CM D/C Disposition:Home Health Service [facility] D/C Disposition:[id number] Projected Discharge Date:11/25/2017 11:00 AM Transportation at D/C:Medicaid Transportation Discharge Delay Reason: Follow-Up Date:11/25/2017 11:00 AM Discharge Slot:2 - 12:01 pm - 18:00 pm Final Diagnosis:UTI, leukocystosis, MS, hypothyroid Placement Information Referral Type:*Home Health Care Services Referral ID:[id number] Provider Name:[facility] Address 1:[address] [place] [address] Address 2: City:[place] Selection Factors:Patient/Family Choice State:[place] Patient Contact Information Contact Name:CARLOS Relationship:Friend Address: Work Phone: City: [facility] Phone: State/Zip Code: Email: Financial Information Financial Class:Medicare Advantage Plans Primary Plan Desc:[facility] [employer] Primary Plan Number:[id number] Secondary Plan Desc:MEDICAID [place] Secondary Plan Number:[id number] Assessment Information LACE LACE Length of stay for Answers: 1 day current admission Acuity / Level of Answers: No Care: Did the patient have an inpatient admission? Comorbidities - select Answers: Any tumor (including all that apply lymphoma or leukemia) Cerebrovascular disease (CVA, TIA, aneurysms, vasc ular dementia) Other Notes: Multiple sclerosis; # of Emergency department Answers: 1-2 visits in the last 6 months Score: 6 Date Signed: 11/25/2017 03:25 PM Electronically Signed By:Cynthia Whitt RN [facility] Progress Note CM Note CM Note Notes: Pt with MS in for UTI, spacity, dehydration. Pt resides alone. OT rec home/HHC/SNF, PT rec SNF. Pt open with [facility] for PT/SPRAY DRY OPERATOR and has HCBS home organizer services. Pt has SPRAY DRY OPERATOR care 2 hours in am 5 days/wk, home organizer 4 hours 2 days/wk and PT 2/wk. Pt wants to return home tomorrow with resumed services of [facility] and HCBS. Referral sent to [facility] in [place]. Pt requests Medicaid [place] transport home. D/c plan of care: Home with [facility] and HCBS Date Signed: 11/24/2017 03:54 PM Electronically Signed By:LYNDA Kolb Case Management Discharge Plan Note Case Management Discharge Discharge Order Complete? Answers: Yes Patient to Obtain Answers: Independently Medications Transportation Arranged Answers: Family/Friends EMTALA Complete Answers: No Notes: N/A Case Management Transport Answers: No Notes: N/A Form Complete Faxed Final Orders Answers: Yes Notes: Sent via [employer]; confirmed receipt with Jasmine Agency/Facility Transfer Answers: Yes Notes: Sent via Report Printed & Faxed to [employer]; confirmed Receiving Agency receipt with Jasmine [place] Notified Answers: No Notes: Per pt no one to notify Discharge Comments Notes: Reviewed chart, spoke with SARAHY Pratt and Dr. Mcfarland. Pt to discharge home with resumption of home care services (RN/PT/SPRAY DRY OPERATOR/HCBS). Met with pt to discuss discharge plan. Pt agreeable to resuming care with [facility]. Call placed to Jasmine at [facility] . Per Jasmine, able to resume with start of care for Monday11/26/17. Update provided to pt. Discharge orders and paperwork sent via [employer]; confirmed receipt. SAVAGE signed. Attempted to arrange Medicaid transport on pt's behalf with [place]. First called placed at [phone] . Per Yael, able to provide wheelchair transport within the hour. Second call placed at [phone]. Per [place], no wheelchair transports available; call sourced to [facility]. Call placed to [employer] , spoke with Glory. Per Glory, currently no wheelchair cabs available in [place] at this time; she will continue to work on finding someone. Third call placed at 1530. Placed on hold for 25 minutes with Yael. Fourth call placed to [employer], per Glory, still no cabs available. Updates provided to pt. Pt to try to arrange transport with a friend. Four additionnal calls placed to [place] and [employer] [facility] between [phone] without success of finding transport. Call also placed to Crow at [facility] - per Crow, no wheelchair transport available in [place]. Crow could send transport from [place], but Medicaid may not cover. Pt arranged for friend Delilah to provide transport. Call placed to [place] and [employer] to cancel request. CM available for any further issues or concerns. Discharge Plan: Home with [facility] and HCBS services Date Signed: 11/25/2017 07:11 PM Electronically Signed By:Cynthia Whitt RN Intervention Information Intervention Type:*HUSSEIN-Signed Date of Service:11/25/2017 03:18 PM Patient Type:Observation Staff Member:SARAHY Whitt [place] Hours: Discipline: Severity: Comment:
[2017-11-25] MEDS ORDERED: CIPROFLOXACIN 500 MG TAB PO SCH (20:00)
[2017-11-25] MEDS ORDERED: ASPIRIN 81 MG CHEWABLE TAB PO SCH (21:00)
== END 2017-11-25 17:22 | disposition home health service (06) ==
LOC: EDUNIT# → F3N 11-24 01:23
PROVIDERS: ADMIT Student in an Organized Health Care Education/Training Program; ATTEND Internal Medicine
DX: N30.01 Acute cystitis with hematuria (principal); G35 Multiple sclerosis; Z88.0 Allergy status to penicillin; D72.829 Elevated white blood cell count, unspecified; E03.9 Hypothyroidism, unspecified; Z99.3 Dependence on wheelchair; Z85.850 Personal history of malignant neoplasm of thyroid; Z87.820 Personal history of traumatic brain injury; E86.1 Hypovolemia
CPT/HCPCS: 96374; 97161; 97166; 97530; 97535; 99285; G0378; G8978; G8979; G8987; G8988; J0696; J1650; J2060

== ENCOUNTER 2017-12-25 11:15 | Emergency (ER) | payer OTHER, MEDICAID ==
[2017-12-25] MEDS ORDERED: NS 1,000 ML IV ONE (12:06)
--- NOTE | 2017-12-25 12:06 | EDPHY ---
H & P Stated Complaint: UTI symptoms, has taken 2 rounds of antibiotics Time Seen by Provider: 12/25/17 12:06 HPI/ROS: HPI: This is a 62-year-old male who presents with Chief Complaint: Urinary frequency, fatigue Location: Body Quality: Fatigue and spasm Duration: 3-5 hours prior to arrival Signs and Symptoms: no fever, no nausea, no vomiting, no hematemesis, no blood in stool, no abdominal bloating, no diarrhea, no back pain, + urinary frequency , no testicular/groin pain, no indigestion, no chest pain, no shortness of breath Timing: Acute, intermittent Severity: Mild Context: Patient has a history of multiple sclerosis, neurogenic bladder with self catheterization presents with feeling fatigued with increased spasms starting this morning. Reports mild urinary frequency. Patient reports that in the last month he has had 2 rounds of antibiotics last 1 being ciprofloxacin approximately 2 weeks ago. He was admitted in August to this hospital due to urosepsis. He reports that he does not feel like he has a urinary tract infection but feels like he may be suffering from some viral illness as he has some mild sore throat and fatigue symptoms. He had a family you reunion last week and his family members flew in from [place], [place]. He is requesting labs, urinalysis and IV fluids. He is eating and drinking without any difficulty. He reports that he is on new medications for MS that decreases immune system and he has been given acyclovir to start if he starts having infection like symptoms. He has not started acyclovir yet. Modifying Factors: None Comment: ROS: see HPI Constitutional: No fever, no chills, no weight loss Eyes: No blurred vision Respiratory: No shortness of breath, no cough Cardiovascular: No chest pain, no palpitations Gastrointestinal: No nausea, no vomiting, no diarrhea, no hematemesis, no blood in stool Genitourinary: No dysuria, no blood in urine Extremities: No myalgias, no edema Neurologic: No weakness, no numbness Skin: No rashes, no petechiae Hematologic: No bruising, no bleeding MEDICAL/SURGICAL/SOCIAL HISTORY: Medical/surgical history: Multiple sclerosis, TIA in September 2014, thyroid CA- thyroid removed 30yrs ago, neurogenic bladder, sepsis Social history: Disabled. Family history noncontributory. CONSTITUTIONAL: Extremely polite and cooperative nontoxic-appearing elderly white male awake and alert, no obvious distress HEENT: Atraumatic and normocephalic, PERRL, EOMI. Nares patent; no rhinorrhea; no nasal mucosal edema. Tympanic membranes clear. Oropharynx clear, no exudate and moist pink mucosa. Airway patent. No lymphadenopathy. No meningismus. Cardiovascular: Normal S1/S2, regular rate, regular rhythm, without murmur rub or gallop. PULMONARY/CHEST: Symmetrical and nontender. Clear to auscultation bilaterally. Good air movement. No accessory muscle usage. ABDOMEN: Soft, nondistended, nontender, no rebound, no guarding, no peritoneal signs, no masses or organomegaly. No CVAT. EXTREMITIES: 2/2 pulses, strength 5/5, no deformities, no clubbing, no cyanosis or edema. NEUROLOGICAL: no focal neuro deficits. GCS 15. Spasticity noted in upper and lower extremities. SKIN: Warm and dry, no erythema. no rash. Good capillary refill. Source: Patient, Old records Exam Limitations: No limitations - Personal History Current Tetanus/Diphtheria Vaccine: Yes Current Tetanus Diphtheria and Acellular Pertussis (TDAP): Yes Tetanus Vaccine Date: 06/2011 - Medical/Surgical History Hx Asthma: No Hx Chronic Respiratory Disease: No Hx Diabetes: No Hx Cardiac Disease: No Hx Renal Disease: No Hx Cirrhosis: No Hx Alcoholism: No Hx HIV/AIDS: No Hx Splenectomy or Spleen Trauma: No Other PMH: Multiple sclerosis, TIA in September 2014, thyroid CA- thyroid removed 30yrs ago, neurogenic bladder, sepsis - Social History Smoking Status: Never smoked Constitutional: Initial Vital Signs Temperature (C) 36.5 C 12/25/17 11:22 Heart Rate 64 12/25/17 11:22 Respiratory Rate 18 12/25/17 11:22 Blood Pressure 130/81 H 12/25/17 11:22 O2 Sat (%) 97 12/25/17 11:22 O2 Delivery Mode Room Air Allergies/Adverse Reactions: Penicillins Allergy (Severe, Verified 12/25/17 11:21) Anaphylaxis iodine Allergy (Mild, Verified 12/25/17 11:21) Rash Home Medications: Medication Instructions Recorded Baclofen [Baclofen 10 mg (*)] 5 - 10 mg PO QID PRN 09/07/13 Aspirin [Aspirin 81mg (*)] 81 mg PO HS 09/26/14 Dalfampridine [AMPYRA] 10 mg PO BIDMEAL 09/26/14 Cholecalciferol Vit D3 [Vitamin D3 3,000 units PO DAILY 01/12/15 (*)] Gabapentin [Neurontin 300 MG (*)] 900 mg PO HS 01/12/15 Oxybutynin Chloride [Ditropan] 5 mg PO HS 01/12/15 Diazepam [Valium 5 MG (*)] 2.5 - 5 mg PO HS PRN 10/21/15 Methenamine Hippurate [METHENAMINE 1 g PO DAILY@,10/21/15 HIPPURATE] Gabapentin [Neurontin 300 MG (*)] 300 mg PO DAILY@18 08/06/17 Herbals/Supplements -Info Only 1 ea PO DAILY 08/06/17 Naproxen Sodium [Aleve 220 MG (*)] 220 mg PO DAILY 08/06/17 Ocrevus 600 mg IV Q6M 08/06/17 Potassium Chloride [Klor-Con 10] 10 meq PO DAILY@18 08/06/17 Polyethylene Glycol 3350 [Miralax 17 gm PO DAILY pkt 08/14/17 17 gm (*)] Acyclovir [Zovirax 400 mg (*)] 400 mg PO BID 11/24/17 Ascorbic Acid [Vitamin C] 100 mg PO DAILY@,11/24/17 Levothyroxine [Synthroid 100 mcg 100 mcg PO DAILY06 11/24/17 (*)] Ciprofloxacin [Cipro] 500 mg PO BID@1000,2000 #14 tab 11/25/17 Cephalexin [Keflex (*)] 500 mg PO QID #28 cap 12/25/17 Medical Decision Making ED Course/Re-evaluation: Vital signs reviewed and stable upon arrival. Labs, urinalysis in out catheterization, urine culture, blood cultures, IV fluids ordered Given 1 L normal saline. Labs reviewed. No signs of leukocytosis/anemia/platelet dysfunction/MUSHTAQ/ elevated LFTs/electrolyte imbalance/sepsis. Urinalysis shows trace bacteria, 20-50 WBCs, 3+ LE. Sent for urine culture. Patient does not want to stay for IV Rocephin 2 g prior to discharge. Long discussion with patient regarding admission due to frequent UTIs and history of sepsis. Patient is adamant that he can be discharged home. His most recent antibiotic has been a fluoroquinolones. He is allergic to penicillin. Reviewed urine culture from August which grew E coli sensitive to cephalosporins. Given a prescription for Keflex which will cover upper respiratory pathogens as well. Patient understands that if he has any worsening of symptoms he is to return to the emergency room immediately. Patient is at high risk for bounce-back. I offered patient admission and he understands the risks of sepsis and decompensation. Patient is alert and oriented x4 and competent to make this decision. Patient prefers to be discharged home as it his family still [facility]. This patient was seen under the supervision of my secondary supervising physician. I evaluated care for this patient independently. Discussed this patient with Dr. Rizo. Differential Diagnosis: Differential diagnosis includes but is not limited to urinary tract infection, sepsis, upper respiratory infection, viral syndrome. - Data Points Laboratory Results: Laboratory Results 12/25/17 13:14 12/25/17 13:14 12/25/17 12/25/17 12/25/17 13:14 13:14 13:14 WBC 8.35 10^3/uL 10^3/uL (3.80-9.50) RBC 4.68 10^6/uL 10^6/uL (4.40-6.38) Hgb 15.5 g/dL g/dL (13.7-17.5) Hct 45.2 % % (40.0-51.0) MCV 96.6 fL fL (81.5-99.8) MCH 33.1 pg pg (27.9-34.1) MCHC 34.3 g/dL g/dL (32.4-36.7) RDW 12.4 % % (11.5-15.2) Plt Count 196 10^3/uL 10^3/uL (150-400) MPV 11.2 fL fL (8.7-11.7) Neut % (Auto) 65.5 % % (39.3-74.2) Lymph % (Auto) 23.0 % % (15.0-45.0) [place] % (Auto) 9.9 % % (4.5-13.0) Eos % (Auto) 0.1 % L % (0.6-7.6) Baso % (Auto) 0.4 % % (0.3-1.7) Nucleat RBC Rel Count 0.0 % % (0.0-0.2) Absolute Neuts (auto) 5.47 10^3/uL 10^3/uL (1.70-6.50) Absolute Lymphs (auto) 1.92 10^3/uL 10^3/uL (1.00-3.00) Absolute Monos (auto) 0.83 10^3/uL H 10^3/uL (0.30-0.80) Absolute Eos (auto) 0.01 10^3/uL L 10^3/uL (0.03-0.40) Absolute Basos (auto) 0.03 10^3/uL 10^3/uL (0.02-0.10) Absolute Nucleated RBC 0.00 10^3/uL 10^3/uL (0-0.01) Immature Gran % 1.1 % % (0.0-1.1) Immature Gran # 0.09 10^3/uL 10^3/uL (0.00-0.10) VBG Lactic Acid 1.3 mmol/L mmol/L (0.7-2.1) Sodium 140 mEq/L mEq/L (135-145) Potassium 4.2 mEq/L mEq/L (3.3-5.0) Chloride 107 mEq/L mEq/L (97-110) Carbon Dioxide 24 mEq/l mEq/l (22-31) Anion Gap 9 mEq/L mEq/L (8-16) BUN 20 mg/dL mg/dL (7-23) Creatinine 0.7 mg/dL mg/dL (0.7-1.3) Estimated GFR > 60 Glucose 83 mg/dL mg/dL (70-100) Calcium 8.8 mg/dL mg/dL (8.5-10.4) Urine Color Urine Appearance Urine pH Ur Specific [place] Urine Protein Urine Ketones Urine Blood Urine Nitrate Urine Bilirubin Urine Urobilinogen Ur Leukocyte Esterase Urine RBC Urine WBC Ur Epithelial Cells Urine Bacteria Urine Mucus Urine Glucose 12/25/17 13:06 WBC RBC Hgb Hct MCV MCH MCHC RDW Plt Count MPV Neut % (Auto) Lymph % (Auto) [place] % (Auto) Eos % (Auto) Baso % (Auto) Nucleat RBC Rel Count Absolute Neuts (auto) Absolute Lymphs (auto) Absolute Monos (auto) Absolute Eos (auto) Absolute Basos (auto) Absolute Nucleated RBC Immature Gran % Immature Gran # VBG Lactic Acid Sodium Potassium Chloride Carbon Dioxide Anion Gap BUN Creatinine Estimated GFR Glucose Calcium Urine Color YELLOW Urine Appearance CLEAR Urine pH 5.0 (5.0-7.5) Ur Specific [place] 1.012 (1.002-1.030) Urine Protein NEGATIVE (NEGATIVE) Urine Ketones TRACE H (NEGATIVE) Urine Blood NEGATIVE (NEGATIVE) Urine Nitrate NEGATIVE (NEGATIVE) Urine Bilirubin NEGATIVE (NEGATIVE) Urine Urobilinogen NEGATIVE EU EU (0.2-1.0) Ur Leukocyte Esterase 3+ H (NEGATIVE) Urine RBC 5-10 /hpf H /hpf (0-3) Urine WBC 25-50 /hpf H /hpf (0-3) Ur Epithelial Cells TRACE /lpf /lpf (NONE-1+) Urine Bacteria TRACE /hpf H /hpf (NONE SEEN) Urine Mucus TRACE /lpf /lpf (NONE-1+) Urine Glucose NEGATIVE (NEGATIVE) Medications Given: Discontinued Medications Sodium Chloride (Ns) 1,000 mls @ 0 mls/hr IV ONCE ONE; Wide Open PRN Reason: Protocol Stop: 12/25/17 12:07 Last Admin: 12/25/17 13:48 Dose: 1,000 mls Departure - Departure Disposition: Home, Routine, Self-Care Clinical Impression: Self-catheterizes urinary bladder, Increased urinary frequency, Bacteria in urine Condition: Good Instructions: Catheter-associated Urinary Tract Infection (ED) Additional Instructions: Consume a minimum of 8-10 glasses of water or electrolyte fluid replacement drinks that include Gatorade, Powerade, Pedialyte. Take antibiotic as directed. Do not skip doses. If the urine culture identifies a pathogen that is not sensitive to the antibiotic, you will be contacted by the emergency room. Return at once for any worsening symptoms or concerns. Referrals: Chintan Novak MD [Primary Care Provider] - 2-3 days without fail Prescriptions: Cephalexin [Keflex (*)] 500 mg PO QID #28 cap
[2017-12-25 13:30] LABS: PLATELET COUNT 196 10^3/uL (150-400)
[2017-12-25 13:54] VITALS: BP 132/80
== END 2017-12-25 15:04 | disposition home or self-care (01) ==
DX: R82.71 Bacteriuria (principal); E86.9 Volume depletion, unspecified; Z79.82 Long term (current) use of aspirin; Z85.850 Personal history of malignant neoplasm of thyroid; Z96.0 Presence of urogenital implants

== ENCOUNTER 2018-02-04 13:39 | Inpatient (IN) | payer OTHER, MEDICAID ==
--- NOTE | 2018-02-04 13:52 | EDPHY ---
H & P Stated Complaint: BACK PAIN, WEAKNESS, POSSIBLE UTI Time Seen by Provider: 02/04/18 13:52 - Personal History Current Tetanus Diphtheria and Acellular Pertussis (TDAP): Yes Tetanus Vaccine Date: 06/2011 - Medical/Surgical History Hx Asthma: No Hx Chronic Respiratory Disease: No Hx Diabetes: No Hx Cardiac Disease: No Hx Renal Disease: No Hx Cirrhosis: No Hx Alcoholism: No Hx HIV/AIDS: No Hx Splenectomy or Spleen Trauma: No Other PMH: Multiple sclerosis, TIA in September 2014, thyroid CA- thyroid removed 30yrs ago, neurogenic bladder, sepsis - Social History Smoking Status: Former smoker Constitutional: Initial Vital Signs Temperature (C) 37.6 C 02/04/18 13:44 Heart Rate 90 02/04/18 13:44 Respiratory Rate 18 02/04/18 13:44 Blood Pressure 158/87 H 02/04/18 13:44 O2 Sat (%) 98 02/04/18 13:44 O2 Delivery Mode Room Air Allergies/Adverse Reactions: Penicillins Allergy (Severe, Verified 02/04/18 13:44) Anaphylaxis iodine Allergy (Mild, Verified 02/04/18 13:44) Rash Home Medications: Medication Instructions Recorded Baclofen [Baclofen 10 mg (*)] 5 - 10 mg PO QID PRN 09/07/13 Oxybutynin Chloride [Ditropan] 5 mg PO HS 01/12/15 Diazepam [Valium 5 MG (*)] 2.5 - 5 mg PO HS PRN 10/21/15 Methenamine Hippurate [METHENAMINE 1 g PO DAILY@12,10/21/15 HIPPURATE] Naproxen Sodium [Aleve 220 MG (*)] 220 mg PO DAILY 08/06/17 Polyethylene Glycol 3350 [Miralax 17 gm PO DAILY pkt 08/14/17 17 gm (*)] Levothyroxine [Synthroid 100 mcg 100 mcg PO DAILY06 11/24/17 (*)] Medical Decision Making ED Course/Re-evaluation: CHIEF COMPLAINT: "Just tired and I'm weak as hell" HISTORY OF PRESENT ILLNESS: The patient is a 62 y/o male with a history of multiple sclerosis complaining of weakness and fatigue for the last couple days. The patient reports he has a history of 15 prior UTIs and current symptoms feel exactly the same. He normally feels muscle achiness in arms and neck when he gets urinary infections, which he is experiencing currently. His PCP, Dr. Novak, wrote a script for Cephalexin and advised him to start it even if he couldn't get a urine sample to the lab. The patient started the antibiotic 1.5 days ago and is feeling worse today. 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 He denies fever, chills, flank pain, abdominal pain, vomiting, diarrhea, dyspnea, chest pain. REVIEW OF SYSTEMS: A comprehensive 10 system review of systems is otherwise negative aside from elements mentioned in the history of present illness and medical decision making. PHYSICAL EXAM: HR, BP, O2 Sat, RR. Temp noted General Appearance: Alert, well hydrated, appropriate, and non-toxic appearing. Head: Atraumatic without scalp tenderness or obvious injury Eyes: Pupils equal, round, reactive to light and accommodation, EOMI, no trauma , no injection. Nose: Atraumatic, no rhinorrhea, clear. Throat: Mucus membranes moist. Neck: Supple. Respiratory: No retractions, no distress, no wheezes, and no accessory muscle use. Lungs are clear to auscultation bilaterally. Cardiovascular: Regular rate and rhythm, no murmurs, rubs, or gallops. Good capillary refill all extremities. Gastrointestinal: Abdomen is soft, nontender, non-distended, no masses, no rebound, no guarding, no peritoneal signs. Musculoskeletal: Normal active ROM of all extremities, atraumatic. Neurological: Alert, appropriate, and interactive. Baseline neuro status. Skin: No rashes, good turgor, no nodules on palpation. Past medical history: Multiple sclerosis, TIA in September 2014, thyroid CA- thyroid removed 30yrs ago, neurogenic bladder, sepsis, 15 UTIs most recent infection was staph. Past surgical history: thyroidectomy Family history: Noncontributory Social history: Lives in [place]. Disabled. PCP: Dr. Novak DIFFERENTIAL DIAGNOSIS: The differential diagnosis for the patient's urinary retention included but was not limited to medication side effect, neurologic causes, outflow obstruction including prostatic hypertrophy, and infection. MEDICAL DECISION MAKING: This is a 62 y/o male with MS who presents with a few-day history of weakness, fatigue, and symptoms that feel similar to prior UTIs. He has been on cephalexin prescribed by his PCP for the last 1.5 days without improvement and today he is too weak to perform normal daily tasks. UA indicates UTI and will treat with 1gm IV Ceftriaxone. Plan for IV, labs, and admission as patient is unable to care for himself at home. WBC elevated at 22.75. Patient is not septic, but is dehydrated. 2L IV NS ordered. Spoke with hospitalist service. Dr. Patel accepts admission for UTI causing MS exacerbation. - Data Points Laboratory Results: Laboratory Results 02/04/18 13:54 02/04/18 13:54 02/04/18 02/04/18 02/04/18 14:17 14:05 13:54 WBC RBC Hgb Hct MCV MCH MCHC RDW Plt Count MPV Neut % (Auto) Lymph % (Auto) Schuyler % (Auto) Eos % (Auto) Baso % (Auto) Nucleat RBC Rel Count Absolute Neuts (auto) Absolute Lymphs (auto) Absolute Monos (auto) Absolute Eos (auto) Absolute Basos (auto) Absolute Nucleated RBC Immature Gran % Seg Neutrophils % Band Neutrophils % Lymphocytes % Monocytes % Eosinophils % Basophils % Metamyelocytes % Myelocytes % Promyelocytes % Blast Cells % Immature Gran # Absolute Seg Neuts Absolute Band Neuts Absolute Lymphocytes Absolute Monocytes Absolute Eosinophils Absolute Basophils Absolute Metamyelocyte Absolute Myelocytes Absolute Promyelocytes Absolute Plasma Cells Nucleated RBCs Atypical Lymphocytes Absolute Blast Cells Plasma Cells % Platelet Estimate PT 12.9 SEC SEC (12.0-15.0) INR 0.95 (0.83-1.16) APTT 32.0 SEC SEC (23.0-38.0) VBG Lactic Acid 2.9 mmol/L H mmol/L (0.7-2.1) Sodium Potassium Chloride Carbon Dioxide Anion Gap BUN Creatinine Estimated GFR Glucose Calcium Total Bilirubin Urine Color YELLOW Urine Appearance HAZY Urine pH 5.0 (5.0-7.5) Ur Specific [place] 1.018 (1.002-1.030) Urine Protein NEGATIVE (NEGATIVE) Urine Ketones 1+ H (NEGATIVE) Urine Blood NEGATIVE (NEGATIVE) Urine Nitrate NEGATIVE (NEGATIVE) Urine Bilirubin NEGATIVE (NEGATIVE) Urine Urobilinogen NEGATIVE EU EU (0.2-1.0) Ur Leukocyte Esterase 3+ H (NEGATIVE) Urine RBC 1-3 /hpf /hpf (0-3) Urine WBC 50-182 /hpf H /hpf (0-3) Ur Epithelial Cells TRACE /lpf /lpf (NONE-1+) Urine Bacteria TRACE /hpf H /hpf (NONE SEEN) Urine Mucus TRACE /lpf /lpf (NONE-1+) Urine Glucose NEGATIVE (NEGATIVE) 02/04/18 02/04/18 13:54 13:54 WBC 22.75 10^3/uL H 10^3/uL (3.80-9.50) RBC 5.19 10^6/uL 10^6/uL (4.40-6.38) Hgb 17.5 g/dL g/dL (13.7-17.5) Hct 51.0 % % (40.0-51.0) MCV 98.3 fL fL (81.5-99.8) MCH 33.7 pg pg (27.9-34.1) MCHC 34.3 g/dL g/dL (32.4-36.7) RDW 13.3 % % (11.5-15.2) Plt Count 156 10^3/uL 10^3/uL (150-400) MPV 12.1 fL H fL (8.7-11.7) Neut % (Auto) Not Reported Lymph % (Auto) Not Reported Schuyler % (Auto) Not Reported Eos % (Auto) Not Reported Baso % (Auto) Not Reported Nucleat RBC Rel Count Not Reported Absolute Neuts (auto) Not Reported Absolute Lymphs (auto) Not Reported Absolute Monos (auto) Not Reported Absolute Eos (auto) Not Reported Absolute Basos (auto) Not Reported Absolute Nucleated RBC Not Reported Immature Gran % Not Reported Seg Neutrophils % 86.1 % % Band Neutrophils % 5.0 % % Lymphocytes % 4.0 % % Monocytes % 4.9 % % Eosinophils % 0.0 % % Basophils % 0.0 % % Metamyelocytes % 0.0 % % Myelocytes % 0.0 % % Promyelocytes % 0.0 % % Blast Cells % 0.0 % % Immature Gran # Not Reported Absolute Seg Neuts 19.59 10^/uL H 10^/uL (1.70-6.50) Absolute Band Neuts 1.14 10^3/uL H 10^3/uL (0.00-0.70) Absolute Lymphocytes 0.91 10^3/uL L 10^3/uL (1.00-3.00) Absolute Monocytes 1.11 10^3/uL H 10^3/uL (0.30-0.80) Absolute Eosinophils 0.00 10^3/uL L 10^3/uL (0.03-0.40) Absolute Basophils 0.00 10^3/uL L 10^3/uL (0.02-0.10) Absolute Metamyelocyte 0.00 10^3/mL 10^3/mL (0.00-0.00) Absolute Myelocytes 0.00 10^3/mL 10^3/mL (0.00-0.00) Absolute Promyelocytes 0.00 10^3/uL 10^3/uL (0.00-0.00) Absolute Plasma Cells 0.00 10^3/uL 10^3/uL (0.00-0.00) Nucleated RBCs 0 /100 WBC /100 WBC (0-0) Atypical Lymphocytes 1+ H Absolute Blast Cells 0.00 10^3/uL 10^3/uL (0.00-0.00) Plasma Cells % 0.0 % % Platelet Estimate ADEQUATE (ADEQ) PT INR APTT VBG Lactic Acid Sodium 141 mEq/L mEq/L (135-145) Potassium 4.3 mEq/L mEq/L (3.3-5.0) Chloride 102 mEq/L mEq/L (97-110) Carbon Dioxide 28 mEq/l mEq/l (22-31) Anion Gap 11 mEq/L mEq/L (8-16) BUN 17 mg/dL mg/dL (7-23) Creatinine 0.7 mg/dL mg/dL (0.7-1.3) Estimated GFR > 60 Glucose 94 mg/dL mg/dL (70-100) Calcium 9.6 mg/dL mg/dL (8.5-10.4) Total Bilirubin 1.0 mg/dL mg/dL (0.1-1.4) Urine Color Urine Appearance Urine pH Ur Specific [place] Urine Protein Urine Ketones Urine Blood Urine Nitrate Urine Bilirubin Urine Urobilinogen Ur Leukocyte Esterase Urine RBC Urine WBC Ur Epithelial Cells Urine Bacteria Urine Mucus Urine Glucose Medications Given: Discontinued Medications Ceftriaxone Sodium/Dextrose (Rocephin 1 Gm (Premix)) 50 mls @ 100 mls/hr IV EDNOW ONE PRN Reason: Protocol Stop: 02/04/18 14:29 Last Admin: 02/04/18 14:22 Dose: 50 mls Departure - Departure Disposition: [facility] Inpatient Acute Clinical Impression: Multiple sclerosis exacerbation, Dehydration UTI (urinary tract infection) Qualifiers: Urinary tract infection type: site unspecified Hematuria presence: without hematuria Qualified Code(s): N39.0 - Urinary tract infection, site not specified Condition: Fair Report Scribed for: Aldo Rossi Report Scribed by: Samra Rosales Date of Report: 02/04/18 Time of Report: 14:01
[2018-02-04 14:11] LABS: PLATELET COUNT 156 10^3/uL (150-400)
[2018-02-04 14:19] LABS: INR 0.95 (0.83-1.16); PROTIME(PATIENT) 12.9 SEC (12.0-15.0)
[2018-02-04] MEDS ORDERED: NS 1,000 ML IV ONE ×3 (14:50→21:38)
--- NOTE | 2018-02-04 16:33 | ASMTCMCOM ---
CM Note CM Note Notes: Pt presented to the ED via EMS for back pain, fatigue and weakness related to a UTI. Pt admitted for UTI and MS exacerbation. Pt states he has had 15 UTIs in the past and that he feels the same symptoms now that he usually does. Pt had contacted his PCP Dr Novak who had called in a Rxn which he started 1.5 days ago. But pt continues to feel back pain, fatigue and weakness. Pt had also reported to EMS that his electric wheelchair had so he had to crawl on the floor in order to call 911. Pt also has a history of a TIA in September 2014 and neurogenic bladder. Pt receives skilled homecare RN/PT/OT/TELECOMMUNICATION LINES REPAIRER through [facility] ([phone]); this CM called and spoke w/on-call RN at [facility] and notified them of pt's admission. Pt also receives [employer] homemaking assistance; this CM called pt's [facility] Criminal Defense Attorney, Airam ([phone]) but she is out of the office until Tuesday 02/06; left a voicemail & provided 3E CM # for call back. Pt had the ED RN text his friend, Anjel. Per chart review, Anjel and one of his other friends, Delilah, have helped pt out w/transportation but pt has also utilized [employer] for Medicaid WC transport as well. Exact DC needs unknown/TBD but anticipate pt will DC home w/HC, HCBS and friends. Date Signed: 02/04/2018 04:33 PM Electronically Signed By:Maria G Chaudhary RN
[2018-02-04] MEDS ORDERED: NS 1,900 ML IV ONE (16:55)
[2018-02-04] MEDS ORDERED: ONDANSETRON 4 MG/2 ML VIAL IVP PRN (17:02)
--- NOTE | 2018-02-04 17:43 | GHP ---
DATE OF ADMISSION: 02/04/2018 CHIEF COMPLAINT: Weakness. HISTORY: The patient is a 62-year-old male with multiple sclerosis and history of recurrent UTIs. Shirley madera has neurogenic bladder and chronically self caths. He presents to the hospital with profoundly wor sening weakness starting on Monday night. Starting this morning, he had burning with his straight ca theterizations, fever to 102.8, he has fallen 3 times. He fell 3 times yesterday. He also recently just got a new power chair that he is struggling to adapt to. He sees Dr. Novak and has Keflex at home. He is instructed to take it when he develops symptoms concerning for UTI. He was not able to get to the lab to give a sample. He started taking oral Keflex on Monday night but did not improve. He was last hospitalized in November for a UTI and was given a prescription for Cipro. Urine culture f rom that hospitalization was a low colony count coag-negative staph. Urine culture prior to that gre w significant pansensitive E coli. PAST MEDICAL HISTORY: 1. Multiple sclerosis. 2. Neurogenic bladder with chronic self-catheterization. 3. Thyroid cancer, status post thyroidectomy. 4. History of transient ischemic attack. MEDICATIONS: Please see computer record for full detailed list. ALLERGIES: To penicillin, which causes anaphylaxis although he is able to tolerate cephalosporins an d iodine. SOCIAL HISTORY: Quit smoking in the 1980s. Light alcohol use. He lives alone. He requires a power chair, but he is able to transfer himself. He is struggling with his new power chair. 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 REVIEW OF SYSTEMS: Complete review of systems negative regarding constitutional, HEENT, GI, pulmonar y, vascular, , hematology, muscular, endocrine, psych except for positives and negatives as in HPI. FAMILY HISTORY: Reviewed, noncontributory to presenting complaint. PHYSICAL EXAMINATION: VITAL SIGNS: Temperature is 102.8, pulse is 113, blood pressure 153/88, satur ating 97% on room air. EYES: Normal conjunctivae, pupils react to light. ENT: Normal ears, nose. Hearing intact. Normal teeth. Oropharynx moist. NECK: Trachea midline. No thyromegaly. CHEST: Normal respiratory effort. LUNGS: Clear to auscultation bilaterally. CARDIOVASCULAR: Regular rhy thm. No murmur. No lower extremity edema. ABDOMEN: Soft, nontender. No hepatosplenomegaly. SKIN : Warm, dry, intact. No rash. MUSCULOSKELETAL: No cyanosis or clubbing. Strength is 0/5 lower ex tremities. NEURO: Cranial nerves intact. Intact sensation. PSYCH: Awake, alert, oriented. Stacie l mood and affect. Normal judgment. Normal memory. LABORATORY DATA: White count 22.75, hematocrit 51.0, platelets 156. Sodium 141, potassium 4.3, chlo ride 102, bicarb 28, BUN 17, creatinine 0.7, glucose 94. INR 0.95. Lactate is 2.9. Urinalysis show s 50-182 white blood cells. This case was personally discussed with Dr. Rossi regarding emergency room course. Old chart was sky [facility] regarding previous admissions for UTI including review of old previous culture data. ASSESSMENT/PLAN: 1. Severe sepsis. This is evidenced by fever, tachycardia, leukocytosis and an elevated lactate of 2.9. Will insure he has a full bolus per sepsis protocol and recheck a lactate. Source of sepsis is urinary tract infection but we will also check a chest x-ray. Will continue IV ceftriaxone as the l ast culture showed a pansensitive Escherichia coli. 2. Neurogenic bladder, on chronic self-catheterization. He now has a Warner catheter in place. He i s on oxybutynin. 3. Multiple sclerosis with spasticity. Continue Ampyra and baclofen. Will consult PT and OT as thi s infection has caused worsening weakness, worsening falls, and he also needs additional instruction regarding adapting to his new power chair. 4. Thyroid cancer, status post thyroidectomy. Continue Synthroid. CODE STATUS: Full. ADMISSION STATUS: Will admit to inpatient. As he is quite ill, I anticipate greater than 48 hours r equired for stabilization. DVT PROPHYLAXIS: He is high risk. Will place him on subcu Lovenox. /[id number]/MODL
--- NOTE | 2018-02-04 17:58 | PDMN ---
Medical Necessity Medical necessity: Pt meets inpt criteria per MD order and MCG M-160, Sepsis and Other Febrile Illness, A-3 days. Pt admitted w/fever, tachycardia (last HR 122), and profound weakness w/ falls in setting of severe sepsis secondary to UTI. Pt has hx MS w/spacticity, neurogenic bladder, chronic self- catheterization. Leukocytosis (WBC's 22.75), lactate 2.9. IVF, IV ABX's, sepsis protocol, blood and urine cultures pending, PT/OT pending, med nec inpt eval/ treatment.
[2018-02-04] MEDS: Dalfampridine [Ampyra] 10 MG PO SCH (19:21)
[2018-02-04] MEDS: BACLOFEN 10 MG TAB PO PRN (19:32)
[2018-02-04] MEDS: NS 1,000 ML IV SCH (19:33)
[2018-02-04] MEDS ORDERED: ALTEPLASE 2 MG VIAL IVP PRN (22:15)
[2018-02-04] MEDS: ASPIRIN EC 81 MG TAB PO SCH (22:39)
[2018-02-04] MEDS: CALCIUM CARBONATE 500 MG TAB PO SCH (22:40)
[2018-02-04] MEDS: OXYBUTYNIN CHLORIDE 5 MG TAB PO SCH ×2 (22:40→22:44)
[2018-02-04] MEDS: METHENAMINE HIPP 1 GM TAB PO SCH (22:40)
[2018-02-04] MEDS: GABAPENTIN 300 MG CAP PO SCH (22:41)
[2018-02-05] MEDS: NS 1,000 ML IV SCH ×3 (00:30→20:39)
[2018-02-05 05:17] LABS: PLATELET COUNT 93 10^3/uL (150-400)
[2018-02-05] MEDS: LEVOTHYROXINE 112 MCG TAB PO SCH (05:22)
[2018-02-05] MEDS: BACLOFEN 10 MG TAB PO PRN ×4 (08:27→22:40)
[2018-02-05] MEDS: ENOXAPARIN 40 MG/0.4 ML SYR SC SCH (08:27)
[2018-02-05] MEDS: Dalfampridine [Ampyra] 10 MG PO SCH ×2 (09:24→19:39)
--- NOTE | 2018-02-05 09:59 | HOSPPROG ---
Hospitalist Progress Note Assessment/Plan: # UTI (GNR-LF) - cont rocephin - cont methenamine # chronic urinary retention requiring self cath - considering suprapubic catheter # sepsis (leuk, tachy, fever) d/t UTI - physiology improving # MS with acutely worsened weakness - d/t infection - would not check MRI at this point, follow clinically for now - cont Ampyra and baclofen # thyroid cancer s/p thyroidectomy # dvt ppx - lovenox # dispo - med surg Subjective: still very weak Objective: Vital Signs Temp Pulse Resp BP Pulse Ox 38.0 C 93 15 106/56 L 93 02/05/18 08:00 02/05/18 08:00 02/05/18 08:00 02/05/18 08:00 02/05/18 08:00 Laboratory Results 02/05/18 04:45 02/04/18 02/05/18 02/06/18 05:59 05:59 05:59 Intake Total 5803 Output Total 2350 Balance 3453 PT 12.9 SEC (12.0-15.0) 02/04/18 13:54 INR 0.95 (0.83-1.16) 02/04/18 13:54 chart reviewed cxr personally reviewed - Physical Exam Constitutional: no apparent distress, appears nourished Cardiovascular: regular rate and rhythym, no murmur, rub, or gallop Respiratory: no respiratory distress, no rales or rhonchi, clear to auscultation Gastrointestinal: soft, non-tender abdomen, No guarding, No rebound, No distension ICD10 Worksheet Patient Problems: Problems Problem Status Onset Blurred vision Acute Multiple sclerosis Acute TIA (transient ischemic attack) Acute Fever Acute Generalized weakness Acute Acute pyelonephritis Acute UTI (urinary tract infection) Acute Spasms of the hands or feet Acute Multiple sclerosis exacerbation Acute Dehydration Acute
[2018-02-05] MEDS: METHENAMINE HIPP 1 GM TAB PO SCH ×2 (12:41→20:37)
[2018-02-05] MEDS: CALCIUM CARBONATE 500 MG TAB PO SCH ×2 (12:41→20:24)
[2018-02-05] MEDS: ACETAMINOPHEN 325 MG TAB PO PRN ×2 (12:41→20:37)
[2018-02-05] MEDS ORDERED: BISACODYL 10 MG SUPP PR PRN (14:50)
[2018-02-05] MEDS ORDERED: IBUPROFEN 600 MG TAB PO ONE (15:00)
[2018-02-05] MEDS: OXYBUTYNIN CHLORIDE 5 MG TAB PO SCH (18:32)
[2018-02-05] MEDS: GABAPENTIN 300 MG CAP PO SCH (20:23)
[2018-02-05] MEDS: ASPIRIN EC 81 MG TAB PO SCH (20:23)
[2018-02-05] MEDS: DIAZEPAM 5 MG TAB PO PRN (22:41)
[2018-02-06] MEDS: LEVOTHYROXINE 112 MCG TAB PO SCH (05:26)
[2018-02-06] MEDS: NS 1,000 ML IV SCH (05:26)
[2018-02-06 05:58] LABS: PLATELET COUNT 93 10^3/uL (150-400)
[2018-02-06] MEDS: Dalfampridine [Ampyra] 10 MG PO SCH ×2 (09:13→21:00)
[2018-02-06] MEDS: ENOXAPARIN 40 MG/0.4 ML SYR SC SCH (09:39)
[2018-02-06] MEDS: CALCIUM CARBONATE 500 MG TAB PO SCH ×2 (11:27→20:04)
[2018-02-06] MEDS: METHENAMINE HIPP 1 GM TAB PO SCH ×2 (11:34→20:05)
[2018-02-06] MEDS: BACLOFEN 10 MG TAB PO PRN (11:34)
--- NOTE | 2018-02-06 12:05 | ASMTCMCOM ---
CM Note CM Note Notes: CM spoke today with Airam from [facility], #[phone] and [facility] #[phone]. Will let them know when Pt discharges so that services can restart. Pt received a PICC line and referral was sent from [facility].CM will follow. D/C Plan: Home with [facility] (RN,PT,OT,CARVER AND CHECKERER SPECIALS), [employer] Homemaking and possibly erita. Date Signed: 02/06/2018 12:04 PM Electronically Signed By:Kitty Jonas
--- NOTE | 2018-02-06 13:03 | HOSPPROG ---
Hospitalist Progress Note Assessment/Plan: # UTI, tubbs-susc e. coli - change abx to ancef - cont methenamine # chronic urinary retention requiring self cath - considering suprapubic catheter - requests to continue ryan today # sepsis (leuk, tachy, fever) d/t UTI - physiology improving # MS with acutely worsened weakness - strength better today - d/t infection - cont Ampyra and baclofen # thyroid cancer s/p thyroidectomy # dvt ppx - lovenox Subjective: stronger today Objective: Vital Signs Temp Pulse Resp BP Pulse Ox 37.7 C 87 16 123/65 H 97 02/06/18 07:18 02/06/18 07:18 02/06/18 07:18 02/06/18 07:18 02/06/18 07:18 Laboratory Results 02/06/18 05:32 02/05/18 02/06/18 02/07/18 05:59 05:59 05:59 Intake Total 5803 3228 Output Total 2350 5950 Balance 3453 -2722 PT 12.9 SEC (12.0-15.0) 02/04/18 13:54 INR 0.95 (0.83-1.16) 02/04/18 13:54 - Physical Exam Constitutional: other Cardiovascular: regular rate and rhythym, no murmur, rub, or gallop Respiratory: no respiratory distress, no rales or rhonchi, clear to auscultation Gastrointestinal: soft, non-tender abdomen, no palpable masses, No rebound, No distension Neurologic: AAOx3, other (very limited movement in extr) ICD10 Worksheet Patient Problems: Problems Problem Status Onset Blurred vision Acute Multiple sclerosis Acute TIA (transient ischemic attack) Acute Fever Acute Generalized weakness Acute Acute pyelonephritis Acute UTI (urinary tract infection) Acute Spasms of the hands or feet Acute Multiple sclerosis exacerbation Acute Dehydration Acute
[2018-02-06] MEDS: ceFAZolin 2 GM/DEXTROSE 100 ML IV SCH ×2 (14:20→22:35)
[2018-02-06] MEDS: BACLOFEN 10 MG TAB PO SCH ×2 (15:35→20:05)
[2018-02-06] MEDS: OXYBUTYNIN CHLORIDE 5 MG TAB PO SCH (20:04)
[2018-02-06] MEDS: GABAPENTIN 300 MG CAP PO SCH (20:04)
[2018-02-06] MEDS: ASPIRIN EC 81 MG TAB PO SCH (20:05)
[2018-02-06] MEDS: ACETAMINOPHEN 325 MG TAB PO PRN (20:06)
[2018-02-06] MEDS: DIAZEPAM 5 MG TAB PO PRN (22:36)
[2018-02-07] MEDS ORDERED: BACLOFEN 10 MG TAB PO ONE (01:34)
[2018-02-07] MEDS: ceFAZolin 2 GM/DEXTROSE 100 ML IV SCH ×3 (05:08→21:18)
[2018-02-07] MEDS: BACLOFEN 10 MG TAB PO SCH ×4 (05:09→21:18)
[2018-02-07] MEDS: LEVOTHYROXINE 112 MCG TAB PO SCH (05:09)
[2018-02-07 05:36] LABS: PLATELET COUNT 110 10^3/uL (150-400)
[2018-02-07] MEDS: ENOXAPARIN 40 MG/0.4 ML SYR SC SCH (09:42)
[2018-02-07] MEDS: Dalfampridine [Ampyra] 10 MG PO SCH ×2 (09:43→21:19)
--- NOTE | 2018-02-07 10:03 | HOSPPROG ---
Hospitalist Progress Note Assessment/Plan: 62 yo M w MS, e coli uti, weakness UTI, tubbs-susc e. coli - change abx to ancef - cont methenamine chronic urinary retention requiring self cath - considering suprapubic catheter - requests to continue ryan today likely dc ryan 02/08 sepsis (leuk, tachy, fever) d/t UTI - physiology improving fecal incontinence: no bm for 6 days prior to admit- usually goes q 3 days suspect overflow incontinence miralax X 2 today d/w pt MS with acutely worsened weakness - strength better today - d/t infection - cont Ampyra and baclofen thyroid cancer s/p thyroidectomy dvt ppx - lovenox Subjective: case d.w Dr Hill. having incontinence Objective: Vital Signs Temp Pulse Resp BP Pulse Ox 37.3 C 77 18 118/67 94 02/07/18 07:48 02/07/18 07:48 02/07/18 03:43 02/07/18 07:48 02/07/18 07:48 Laboratory Results 02/07/18 05:07 02/06/18 02/07/18 02/08/18 05:59 05:59 05:59 Intake Total 3228 2352 300 Output Total 5950 3600 Balance -2722 -1248 300 PT 12.9 SEC (12.0-15.0) 02/04/18 13:54 INR 0.95 (0.83-1.16) 02/04/18 13:54 - Physical Exam Constitutional: no apparent distress, appears nourished Eyes: PERRL, anicteric sclera Ears, Nose, Mouth, Throat: moist mucous membranes, hearing normal Cardiovascular: regular rate and rhythym, no murmur, rub, or gallop Respiratory: no respiratory distress, no rales or rhonchi Gastrointestinal: normoactive bowel sounds, soft, non-tender abdomen Genitourinary: no bladder fullness, ryan in urethra Skin: warm, normal color Musculoskeletal: No full muscle strength Neurologic: AAOx3 ICD10 Worksheet Patient Problems: Problems Problem Status Onset Dehydration Acute Multiple sclerosis exacerbation Acute UTI (urinary tract infection) Acute Acute pyelonephritis Acute Blurred vision Acute Fever Acute Generalized weakness Acute Multiple sclerosis Acute Spasms of the hands or feet Acute TIA (transient ischemic attack) Acute
[2018-02-07] MEDS: POLYETHYLENE GLYCOL 3350 17 GM PKT PO SCH (10:28)
[2018-02-07] MEDS ORDERED: POLYETHYLENE GLYCOL 3350 17 GM PKT PO ONE (12:00)
[2018-02-07] MEDS: ACETAMINOPHEN 325 MG TAB PO PRN (12:07)
[2018-02-07] MEDS: CALCIUM CARBONATE 500 MG TAB PO SCH ×2 (12:07→21:18)
[2018-02-07] MEDS: METHENAMINE HIPP 1 GM TAB PO SCH ×2 (12:07→21:17)
[2018-02-07] MEDS: GABAPENTIN 300 MG CAP PO SCH (21:18)
[2018-02-07] MEDS: ASPIRIN EC 81 MG TAB PO SCH (21:18)
[2018-02-07] MEDS: OXYBUTYNIN CHLORIDE 5 MG TAB PO SCH (21:18)
[2018-02-08] MEDS: DIAZEPAM 5 MG TAB PO PRN (00:16)
[2018-02-08] MEDS: BACLOFEN 10 MG TAB PO SCH ×4 (05:48→20:52)
[2018-02-08] MEDS: LEVOTHYROXINE 112 MCG TAB PO SCH (05:48)
[2018-02-08] MEDS: ceFAZolin 2 GM/DEXTROSE 100 ML IV SCH ×3 (05:48→20:52)
[2018-02-08] MEDS: ENOXAPARIN 40 MG/0.4 ML SYR SC SCH (08:23)
[2018-02-08] MEDS: Dalfampridine [Ampyra] 10 MG PO SCH ×2 (09:14→21:00)
[2018-02-08] MEDS: POLYETHYLENE GLYCOL 3350 17 GM PKT PO SCH (09:15)
[2018-02-08] MEDS: METHENAMINE HIPP 1 GM TAB PO SCH ×2 (12:05→20:50)
[2018-02-08] MEDS: CALCIUM CARBONATE 500 MG TAB PO SCH ×2 (12:19→20:52)
--- NOTE | 2018-02-08 15:30 | HOSPPROG ---
Hospitalist Progress Note Assessment/Plan: 62 yo M w MS, e coli uti, weakness UTI, tubbs-susceptible coli - change abx to ancef - cont methenamine chronic urinary retention requiring self cath - considering suprapubic catheter - requests to continue ryan today likely dc ryan 02/08 sepsis (leuk, tachy, fever) d/t UTI - physiology improving fecal incontinence: improving MS with acutely worsened weakness - strength better today - d/t infection - cont Ampyra and baclofen starting to improve. continue PT awaiting decision on inpt rehab thyroid cancer s/p thyroidectomy dvt ppx - lovenox dispo: refusing snf based on prior experiences home vs inpt rehab in coming days Subjective: stool incontinence resolved. starting to movehands better. ryan out Objective: Vital Signs Temp Pulse Resp BP Pulse Ox 37.7 C 80 16 108/67 96 02/08/18 11:21 02/08/18 11:21 02/08/18 11:21 02/08/18 11:21 02/08/18 11:21 Laboratory Results 02/07/18 05:07 02/07/18 02/08/18 02/09/18 05:59 05:59 05:59 Intake Total 2352 1000 1050 Output Total 3600 1900 1350 Balance -1248 -900 -300 PT 12.9 SEC (12.0-15.0) 02/04/18 13:54 INR 0.95 (0.83-1.16) 02/04/18 13:54 - Physical Exam Constitutional: no apparent distress, appears nourished Eyes: PERRL, anicteric sclera Ears, Nose, Mouth, Throat: moist mucous membranes, hearing normal Cardiovascular: regular rate and rhythym, no murmur, rub, or gallop, systolic murmur Respiratory: no respiratory distress, no rales or rhonchi Gastrointestinal: normoactive bowel sounds, soft, non-tender abdomen Genitourinary: no bladder fullness, No ryan in urethra Skin: warm, normal color Musculoskeletal: no muscle tenderness, No full muscle strength Neurologic: AAOx3, sensation intact bilaterally ICD10 Worksheet Patient Problems: Problems Problem Status Onset Dehydration Acute Multiple sclerosis exacerbation Acute UTI (urinary tract infection) Acute Acute pyelonephritis Acute Blurred vision Acute Fever Acute Generalized weakness Acute Multiple sclerosis Acute Spasms of the hands or feet Acute TIA (transient ischemic attack) Acute
[2018-02-08] MEDS: ASPIRIN EC 81 MG TAB PO SCH (20:50)
[2018-02-08] MEDS: OXYBUTYNIN CHLORIDE 5 MG TAB PO SCH (20:52)
[2018-02-08] MEDS: GABAPENTIN 300 MG CAP PO SCH (22:21)
[2018-02-09] MEDS: LEVOTHYROXINE 112 MCG TAB PO SCH (06:09)
[2018-02-09] MEDS: BACLOFEN 10 MG TAB PO SCH ×4 (06:10→22:35)
[2018-02-09] MEDS: ceFAZolin 2 GM/DEXTROSE 100 ML IV SCH (06:10)
[2018-02-09] MEDS: ENOXAPARIN 40 MG/0.4 ML SYR SC SCH (09:40)
[2018-02-09] MEDS: POLYETHYLENE GLYCOL 3350 17 GM PKT PO SCH ×2 (09:40→09:43)
[2018-02-09] MEDS: Dalfampridine [Ampyra] 10 MG PO SCH (09:41)
[2018-02-09] MEDS: METHENAMINE HIPP 1 GM TAB PO SCH ×2 (11:58→22:36)
[2018-02-09] MEDS: CALCIUM CARBONATE 500 MG TAB PO SCH ×2 (11:58→22:36)
[2018-02-09] MEDS ORDERED: BACITRACIN OINTMENT 1 PACKET TP ONE ×2 (12:16→16:44)
--- NOTE | 2018-02-09 13:45 | HOSPPROG ---
Hospitalist Progress Note Assessment/Plan: 62 yo M w MS, e coli uti, weakness UTI, tubbs-susceptible coli - change abx to ancef - Plan to switch to PO Bactrim today to complete 10 day course - cont methenamine chronic urinary retention requiring self cath - patient is considering suprapubic catheter - dc ryan 02/08, continue straight cath prn sepsis (leuk, tachy, fever) d/t UTI - physiology improving, tx as above fecal incontinence: improving MS with acutely worsened weakness - strength better today - d/t infection - cont Ampyra and baclofen starting to improve. continue PT awaiting decision on inpt rehab thyroid cancer s/p thyroidectomy dvt ppx - lovenox dispo: refusing snf based on prior experiences home likely tomorrow Subjective: Patient reports improved strength this morning, he was able to feed himself Objective: Vital Signs Temp Pulse Resp BP Pulse Ox 36.4 C 76 16 128/81 H 97 02/09/18 12:48 02/09/18 12:48 02/09/18 12:48 02/09/18 12:48 02/09/18 12:48 Laboratory Results 02/07/18 05:07 02/08/18 02/09/18 02/10/18 05:59 05:59 05:59 Intake Total 1000 1650 Output Total 1900 2600 Balance -900 -950 PT 12.9 SEC (12.0-15.0) 02/04/18 13:54 INR 0.95 (0.83-1.16) 02/04/18 13:54 - Physical Exam Constitutional: no apparent distress Eyes: PERRL Ears, Nose, Mouth, Throat: moist mucous membranes Cardiovascular: regular rate and rhythym Respiratory: no respiratory distress Gastrointestinal: normoactive bowel sounds, soft, non-tender abdomen Genitourinary: no bladder tenderness, No ryan in urethra Skin: warm Musculoskeletal: abnormal gait, generalized weakness Neurologic: AAOx3, weakness Psychiatric: interacting appropriately ICD10 Worksheet Patient Problems: Problems Problem Status Onset Dehydration Acute Multiple sclerosis exacerbation Acute UTI (urinary tract infection) Acute Acute pyelonephritis Acute Blurred vision Acute Fever Acute Generalized weakness Acute Multiple sclerosis Acute Spasms of the hands or feet Acute TIA (transient ischemic attack) Acute
--- NOTE | 2018-02-09 14:25 | ASMTCMCOM ---
CM Note CM Note Notes: Inpt rehab has declined pt due to his not being able to work with therapies 3 hrs/day. They stated they will re-eval if t still inpt on Monday. Spoke with pt who prefers to return home. He has [facility] and HCBS services 2 hrs/day except for weekends. Per MD, pt will tx to oral abx. Alerted [employer]. Date Signed: 02/09/2018 02:24 PM Electronically Signed By:Shey Mariee LCSW
[2018-02-09] MEDS: SULFAMETHOX/TMP 800/160 MG 1 TAB PO SCH (22:35)
[2018-02-09] MEDS: ASPIRIN EC 81 MG TAB PO SCH (22:36)
[2018-02-09] MEDS: OXYBUTYNIN CHLORIDE 5 MG TAB PO SCH (22:36)
[2018-02-09] MEDS: GABAPENTIN 300 MG CAP PO SCH (22:36)
[2018-02-10] MEDS: DIAZEPAM 5 MG TAB PO PRN ×2 (00:30→23:09)
[2018-02-10] MEDS: Dalfampridine [Ampyra] 10 MG PO SCH ×3 (00:31→20:17)
[2018-02-10] MEDS: LEVOTHYROXINE 112 MCG TAB PO SCH (05:32)
[2018-02-10] MEDS: BACLOFEN 10 MG TAB PO SCH ×4 (05:32→20:17)
[2018-02-10] MEDS: SULFAMETHOX/TMP 800/160 MG 1 TAB PO SCH ×2 (08:06→20:18)
[2018-02-10] MEDS: ACETAMINOPHEN 325 MG TAB PO PRN (08:06)
[2018-02-10] MEDS: ENOXAPARIN 40 MG/0.4 ML SYR SC SCH (08:06)
[2018-02-10] MEDS: POLYETHYLENE GLYCOL 3350 17 GM PKT PO SCH (08:08)
--- NOTE | 2018-02-10 11:26 | HOSPPROG ---
Hospitalist Progress Note Assessment/Plan: 62 yo M w MS, e coli uti, weakness UTI, tubbs-susceptible coli - change abx to ancef - Switched to PO Bactrim on 02/09 to complete 10 day course - cont methenamine chronic urinary retention requiring self cath - patient is considering suprapubic catheter - dc ryan 02/08, continue straight cath prn sepsis (leuk, tachy, fever) d/t UTI - physiology improving, tx as above fecal incontinence: improving MS with acutely worsened weakness - strength better today - d/t infection - cont Ampyra and baclofen thyroid cancer s/p thyroidectomy dvt ppx - lovenox dispo: refusing snf based on prior experiences Therapy is recommending SNF or 26/12 care at home which patient is unable to obtain, CM to meet with patient today Subjective: Patient reports baseline functioning this morning Objective: Vital Signs Temp Pulse Resp BP Pulse Ox 36.7 C 72 12 116/81 H 95 02/10/18 09:46 02/10/18 09:46 02/10/18 09:46 02/10/18 09:46 02/10/18 09:46 Laboratory Results 02/07/18 05:07 02/09/18 02/10/18 02/11/18 05:59 05:59 05:59 Intake Total 1650 450 Output Total 2600 750 Balance -950 -300 PT 12.9 SEC (12.0-15.0) 02/04/18 13:54 INR 0.95 (0.83-1.16) 02/04/18 13:54 - Physical Exam Constitutional: no apparent distress Eyes: PERRL Ears, Nose, Mouth, Throat: moist mucous membranes Cardiovascular: regular rate and rhythym Respiratory: no respiratory distress, no rales or rhonchi Gastrointestinal: normoactive bowel sounds, soft, non-tender abdomen Genitourinary: No ryan in urethra Skin: warm Musculoskeletal: no muscle tenderness, no joint effusions Neurologic: AAOx3, weakness Psychiatric: interacting appropriately ICD10 Worksheet Patient Problems: Problems Problem Status Onset Dehydration Acute Multiple sclerosis exacerbation Acute UTI (urinary tract infection) Acute Acute pyelonephritis Acute Blurred vision Acute Fever Acute Generalized weakness Acute Multiple sclerosis Acute Spasms of the hands or feet Acute TIA (transient ischemic attack) Acute
[2018-02-10] MEDS: METHENAMINE HIPP 1 GM TAB PO SCH ×2 (12:16→20:16)
[2018-02-10] MEDS: CALCIUM CARBONATE 500 MG TAB PO SCH ×2 (12:16→20:17)
--- NOTE | 2018-02-10 15:35 | PDIAF ---
- Diagnosis Diagnosis: Urinary Tract Infection Code Status: Full Code - Medication Management Discharge Medications: Medications to Continue on Transfer Baclofen [Baclofen 10 mg (*)] 5 - 10 mg PO QID PRN 09/07/13 [Last Taken 11/23/17 ] Oxybutynin Chloride [Ditropan] 5 - 10 mg PO HS 01/12/15 [Last Taken 11/23/17] Diazepam [Valium 5 MG (*)] 2.5 - 5 mg PO HS PRN 10/21/15 [Last Taken 02/03/18] Methenamine Hippurate [METHENAMINE HIPPURATE] 1 g PO DAILY@10/21/15 [Last Taken 02/04/18] Aspirin EC [Aspirin EC 81 mg (*)] 81 mg PO HS 02/04/18 [Last Taken 02/03/18] Calcium Carbonate [Oyster Shell Calcium 500 mg (*)] 500 mg PO BID@ [Last Taken 02/04/18] Dalfampridine [AMPYRA] 10 mg PO BID 02/04/18 [Last Taken Unknown] Gabapentin [Neurontin 300 MG (*)] 600 mg PO HS 02/04/18 [Last Taken 02/03/18] Levothyroxine [Synthroid 112 mcg (*)] 112 mcg PO DAILY06 02/04/18 [Last Taken ] Sulfamethox/Tmp 800/160 mg [Bactrim DS] 1 ea PO BID #7 tab 02/10/18 [Last Taken Unknown] Discharge Medications: Refer to the Discharge Home Medication list for PRN reason. - Orders Services needed: Home Care, Registered Nurse, Certified Office Manager, Physical Therapy, Occupational Therapy Home Care Face to Face: I certify that this patient was under my care and that I had the required [id number] encounter meeting the encounter requirements on the discharge day. My findings support the fact that the patient is homebound as defined in Home Care Face to Face Continued: CMS Chapter 7 Medicare Benefits Manual 30.1.1 , The condition of the patient is such that there exists a normal inability to leave home and consequently, leaving home would require a considerable and taxing effort. Isolation Type: None Diet Texture: Regular Texture Diet, Thin Liquids, Meds Whole w/Liquids - Follow Up Care Current Providers and Referrals: Patient,NotPresent [Unknown] - As per Instructions
--- NOTE | 2018-02-10 15:39 | PDDCSUM ---
Discharge Summary Discharge Summary: Admission Date: 02/04/2018 Discharge Date: 02/10/2018 Consults: N/A Hospital Course Problem List 62 yo M w MS, e coli uti, weakness UTI, tubbs-susceptible coli - - Was on Ancef, switched to PO Bactrim on 02/09 to complete 10 day course upon discharge - cont methenamine chronic urinary retention requiring self cath - patient is considering suprapubic catheter - dc ryan 02/08, continue straight cath prn at home sepsis (leuk, tachy, fever) d/t UTI - physiology improving, tx as above fecal incontinence: improving MS with acutely worsened weakness - strength better today - d/t infection - cont Ampyra and baclofen thyroid cancer s/p thyroidectomy PT/OT recommended 26/12 care or SNF placement, but patient refused SNF based on prior experiences. Case management was able to get a relative to come stay with patient and increase his home health services. The risks of going home rather than placement has been explained to patient and he expressed understanding. Time spent on discharge was >35 minutes with >50% of time spent on patient education/counseling.
[2018-02-10] MEDS: ASPIRIN EC 81 MG TAB PO SCH (20:17)
[2018-02-10] MEDS: OXYBUTYNIN CHLORIDE 5 MG TAB PO SCH (20:18)
[2018-02-10] MEDS: GABAPENTIN 300 MG CAP PO SCH (23:08)
[2018-02-11] MEDS: LEVOTHYROXINE 112 MCG TAB PO SCH (05:29)
[2018-02-11] MEDS: BACLOFEN 10 MG TAB PO SCH ×2 (05:29→12:51)
[2018-02-11] MEDS: ACETAMINOPHEN 325 MG TAB PO PRN (08:14)
[2018-02-11] MEDS: ENOXAPARIN 40 MG/0.4 ML SYR SC SCH (08:14)
[2018-02-11] MEDS: SULFAMETHOX/TMP 800/160 MG 1 TAB PO SCH (08:14)
[2018-02-11] MEDS: POLYETHYLENE GLYCOL 3350 17 GM PKT PO SCH (08:16)
[2018-02-11] MEDS: Dalfampridine [Ampyra] 10 MG PO SCH (08:52)
--- NOTE | 2018-02-11 09:33 | ASMTCMCOM ---
CM Note CM Note Notes: Note for Monday02/10/18, late entry - Allscripts down for maintenance Monday afternoon/evening Reviewed chart, spoke with SARAHY Rodriguez and Dr. Green regarding discharge plan of care, pt's progress. PT/OT strongly recommend SNF placement for additional rehab and strengthening. Met with pt to discuss safety concerns and need for SNF. Pt adamant that he is at his baseline. Pt declining SNF secondary to a prior negative experience at [facility] (pt reports developing a nosocomial infection at that resulted in a month long hospitalization). Pt current with [facility] (RN,GRETCHEN, PT services). Pt also receives services through HCBS from [facility] for 2 hrs of DRUPAL PROGRAMMER assistance/day and 4 hrs of shopping, laundry,cleaning assistance/week. Pt concerns discussed with Dr. Green. Per , pt able to d/c home with 26/12 care, plus increase in current services. Met with pt to discuss 26/12 care, increased DRUPAL PROGRAMMER services. Pt reports not having any family who can help on an ongoing basis. Pt called his nephew Chauncey, who agreed to stay with pt until Monday02/11/18. Discussed with ; discharge orders received. Call placed to Gela Taylor with [facility]; per Gela able to resume services with start of care for Monday02/11/18. Discussed pt need for increased DRUPAL PROGRAMMER services, Gela to further discuss with pt's RN, Sheela. Discharge orders and paperwork sent via [employer]; confirmed receipt with SARAHY Rangel at [facility]. Call placed to [employer] for Medicaid transport, spoke with Susi. Call received from Susi with [employer] to take transport call . Spoke with Glory about [employer], dispatch working on finding a local company flatbed truck driver. Update provided to pt. Call received from SARAHY Rangel at [facility] at approx 1700. Per Claire [facility] does not have staff to increase DRUPAL PROGRAMMER services for pt this upcoming week. Discussed pt needs further. Claire to speak with Snow [facility]'s Construction Stonemason. Call received from Snow at [facility] . Per Snow, unable to increase pt's DRUPAL PROGRAMMER services; no staff available. Snow indicated it would be better for pt to go to rehab for a short period of time to get stronger; expressing concerns for pt's safety. Per Snow, "if pt doesn't have support for 26/12 care, they cannot accept pt back." Update provided to Jennifer Freed RN. Discussed safety concerns with pt. Pt frustrated with situation; continuing to decline SNF placement. Call placed to pt's nephew, Chauncey; situation explained. Chauncey unable to stay with pt longer than current plan. Chauncey requesting pt reconsider SNF rehab. Pt remains adamant that he is at his baseline and does not need additional services or rehab. Call placed to Snow at [facility]. This proposed having pt's routine hospice/home health aide and DRUPAL PROGRAMMER visit pt in hospital to do an evaluation of pt's strength and baseline status. Snow agreed to send staff. SARAHY Coker to visit pt on Monday02/11/18 at 10:00. GRETCHEN Garcia to visit pt on Monday02/12/18, if further evaluation still needed. Plan discussed with pt and Dr. Green; both in agreement. Discharge and [employer] transportation canceled. If it is determined pt is at his baseline he will return home with [facility] (RN, DRUPAL PROGRAMMER, PT services). If it is determined the pt is deconditioned and needs additional services, CM will work with pt on SNF placement and/or an additional inpt rehab eval on Monday02/12/18. CM will continue to follow. Discharge Plan: To be determined Date Signed: 02/11/2018 09:32 AM Electronically Signed By:Cynthia Whitt RN
[2018-02-11 11:41] VITALS: BP 125/78
[2018-02-11] MEDS: CALCIUM CARBONATE 500 MG TAB PO SCH (12:51)
[2018-02-11] MEDS: METHENAMINE HIPP 1 GM TAB PO SCH (12:51)
--- NOTE | 2018-02-12 09:24 | ASDISCHSUM ---
Discharge Information Plan Status:SNF Medically Cleared to Leave:02/11/2018 Discharge Date:02/11/2018 02:54 PM D/C Disposition:[facility] Facility ADT D/C Disposition:[facility] Facility Projected Discharge Date:02/10/2018 11:00 AM Transportation at D/C:Medicaid Transportation Discharge Delay Reason: Follow-Up Date:02/10/2018 11:00 AM Discharge Slot: Final Diagnosis:MS exacerbation, fever, UTI, sepsis, fecal incontinence, thyroid cancer s/p thyroide ctomy Placement Information Referral Type:Home Infusion Referral ID:[id number] Provider Name: Address 1: Phone Number: Address 2: Fax Number: City: Selection Factors: State: Referral Type:*Home Health Care Services Referral ID:[id number] Provider Name: Address 1: Phone Number: Address 2: Fax Number: City: Selection Factors: State: Referral Type:*Skilled Nursing/SNF Referral ID:[id number] Provider Name:[facility] Address 1:[address] Address 2: City:[place] Selection Factors: State:[place] Patient Contact Information Contact Name:CARLOS Relationship:Friend Address: Work Phone: City: [facility] Phone: [facility] Code: Email: Financial Information Financial Class:Medicare Advantage Plans Primary Plan Desc:[place] Primary Plan Number:[id number] Secondary Plan Desc:[place] Secondary Plan Number:[id number] Assessment Information [facility] CM Progress Note CM Note CM Note Notes: Pt presented to the ED via EMS for back pain, fatigue and weakness related to a UTI. Pt admitted for UTI and MS exacerbation. Pt states he has had 15 UTIs in the past and that he feels the same symptoms now that he usually does. Pt had contacted his PCP Dr Novak who had called in a Rxn which he started 1.5 days ago. But pt continues to feel back pain, fatigue and weakness. Pt had also reported to EMS that his electric wheelchair had so he had to crawl on the floor in order to call 911. Pt also has a history of a TIA in September 2014 and neurogenic bladder. Pt receives skilled homecare RN/PT/OT/RIDING SILKS CUSTODIAN through [facility] ([phone]); this CM called and spoke w/on-call RN at [facility] and notified them of pt's admission. Pt also receives HCBS homemaking assistance; this CM called pt's [facility] Machine Operator Picker, Airam ([phone]) but she is out of the office until Tuesday 02/06; left a voicemail & provided 3E CM # for call back. Pt had the ED RN text his friend, Anjel. Per chart review, Anjel and one of his other friends, Delilah, have helped pt out w/transportation but pt has also utilized [employer] for Medicaid WC transport as well. Exact DC needs unknown/TBD but anticipate pt will DC home w/HC, HCBS and friends. Date Signed: 02/04/2018 04:33 PM Electronically Signed By:Maria G Chaudhary RN [facility] Progress Note CM Note CM Note Notes: CM spoke today with Airam from [facility], #[phone] [facility] #[phone]. Will let them know when Pt discharges so that services can restart. Pt received a PICC line and referral was sent from [facility].CM will follow. D/C Plan: Home with [facility] (RN,PT,OT,RIDING SILKS CUSTODIAN), [employer]em[employer] and possibly [employer]. Date Signed: 02/06/2018 12:04 PM Electronically Signed By:Kitty Jonas [facility] Progress Note CM Note CM Note Notes: Inpt rehab has declined pt due to his not being able to work with therapies 3 hrs/day. They stated they will re-eval if t still inpt on Monday. Spoke with pt who prefers to return home. He has [facility] and HCBS services 2 hrs/day except for weekends. Per , pt will tx to oral abx. Alerted [employer]. Date Signed: 02/09/2018 02:24 PM Electronically Signed By:Shey Mariee LCSW [facility] Progress Note CM Note CM Note Notes: Note for Monday02/10/18, late entry - Allscripts down for maintenance Monday afternoon/evening Reviewed chart, spoke with SARAHY Rodriguez and Dr. Green regarding discharge plan of care, pt's progress. PT/OT strongly recommend SNF placement for additional rehab and strengthening. Met with pt to discuss safety concerns and need for SNF. Pt adamant that he is at his baseline. Pt declining SNF secondary to a prior negative experience at [facility] (pt reports developing a nosocomial infection at that resulted in a month long hospitalization). Pt current with [facility] (RN,RIDING SILKS CUSTODIAN, PT services). Pt also receives services through HCBS from [facility] for 2 hrs of RIDING SILKS CUSTODIAN assistance/day and 4 hrs of shopping, laundry,cleaning assistance/week. Pt concerns discussed with Dr. Green. Per , pt able to d/c home with 24/7 care, plus increase in current services. Met with pt to discuss 24/7 care, increased RIDING SILKS CUSTODIAN services. Pt reports not having any family who can help on an ongoing basis. Pt called his nephew Chauncey, who agreed to stay with pt until Monday02/11/18. Discussed with MD; discharge orders received. Call placed to Gela Brandon with [facility]; per Gela able to resume services with start of care for Monday02/11/18. Discussed pt need for increased RIDING SILKS CUSTODIAN services, Gela to further discuss with pt's RN, Sheela. Discharge orders and paperwork sent via [employer]; confirmed receipt with SARAHY Rangel at [facility]. Call placed to [employer] for Medicaid transport, spoke with Susi. Call received from Susi with [employer] to take transport call . Spoke with Glory about [employer], dispatch working on finding a wagon driver. Update provided to pt. Call received from SARAHY Rangel at [facility] at approx 1700. Per Claire, [facility] does not have staff to increase RIDING SILKS CUSTODIAN services for pt this upcoming week. Discussed pt needs further. Claire to speak with Snow [facility]'s Net Software Architect. Call received from Snow at [facility] . Per nSow, unable to increase pt's RIDING SILKS CUSTODIAN services; no staff available. Snow indicated it would be better for pt to go to rehab for a short period of time to get stronger; expressing concerns for pt's safety. Per Snow, "if pt doesn't have support for 26/12 care, they cannot accept pt back." Update provided to Jennifer Freed RN. Discussed safety concerns with pt. Pt frustrated with situation; continuing to decline SNF placement. Call placed to pt's nephew, Chauncey; situation explained. Chauncey unable to stay with pt longer than current plan. Chauncey requesting pt reconsider SNF rehab. Pt remains adamant that he is at his baseline and does not need additional services or rehab. Call placed to Snow at [facility]. This CM proposed having pt's routine group home counselor and RIDING SILKS CUSTODIAN visit pt in hospital to do an evaluation of pt's strength and baseline status. Snow agreed to send staff. SARAHY Coker to visit pt on Monday02/11/18 at 10:00. GRETCHEN Garcia to visit pt on Monday02/12/18, if further evaluation still needed. Plan discussed with pt and Dr. Green; both in agreement. Discharge and [employer] transportation canceled. If it is determined pt is at his baseline he will return home with [facility] (RN, RIDING SILKS CUSTODIAN, PT services). If it is determined the pt is deconditioned and needs additional services, CM will work with pt on SNF placement and/or an additional inpt rehab eval on Monday02/12/18. CM will continue to follow. Discharge Plan: To be determined Date Signed: 02/11/2018 09:32 AM Electronically Signed By:Cynthia Whitt RN Intervention Information Intervention Type:*IM-Signed Date of Service:02/09/2018 03:15 PM Patient Type:Inpatient Staff Member:Ivet Martinez Hours: Discipline: Severity: Comment:
== END 2018-02-11 14:54 | DRG 872 ==
LOC: EDUNIT# → F3E 15:51 → F2N 23:18 → F1N 02-05 17:08
PROVIDERS: ADMIT Internal Medicine; ATTEND Internal Medicine
PROC: 02H633Z Insertion of Infusion Device into Right Atrium, Percutaneous Approach (ICD-10-PCS; principal; 2018-02-05)
DX: A41.51 Sepsis due to Escherichia coli [E. coli] (principal); N39.0 Urinary tract infection, site not specified; R65.20 Severe sepsis without septic shock; E86.9 Volume depletion, unspecified; N31.9 Neuromuscular dysfunction of bladder, unspecified; G35 Multiple sclerosis; R33.8 Other retention of urine; R15.9 Full incontinence of feces; Z85.850 Personal history of malignant neoplasm of thyroid
CPT/HCPCS: 92610-GN; 96365; 97163-GP; 97166-GO; 97530-GO; 97530-GP; 97535-GO; C1751; G8978-GP-CM; G8979-GP-CL; G8987-GO-CM; G8988-GO-CK; G8996-GN-CH; G8997-GN-CH; G8998-GN-CH; J0690; J0696; J1650

== ENCOUNTER 2018-02-24 07:37 | Emergency (ER) | payer OTHER, MEDICAID ==
--- NOTE | 2018-02-24 08:03 | EDPHY ---
H & P Stated Complaint: ?UTI Time Seen by Provider: 02/24/18 07:52 HPI/ROS: CHIEF COMPLAINT: Weakness consistent with prior urinary tract infections HISTORY OF PRESENT ILLNESS: The patient presents to the ED with complaints of weakness consistent with his prior urinary tract infections. He has a history of multiple sclerosis. The patient self caths at home. He was recently admitted to the hospital with urosepsis discharged home on Bactrim which she completed approximately week ago. The patient did start taking Keflex yesterday. The patient tells me that he is having weakness and difficulty transferring. He feels weak primarily in his legs bilaterally. He denies any fever, vomiting or flank pain. The patient denies additional acute complaints. REVIEW OF SYSTEMS: A comprehensive 10 point review of systems is otherwise negative aside from elements mentioned in the history of present illness. Source: Patient Exam Limitations: No limitations - Personal History Current Tetanus/Diphtheria Vaccine: Yes Tetanus Vaccine Date: 06/2011 - Medical/Surgical History Hx Asthma: No Hx Chronic Respiratory Disease: No Hx Diabetes: No Hx Cardiac Disease: No Hx Renal Disease: No Hx Cirrhosis: No Hx Alcoholism: No Hx HIV/AIDS: No Hx Splenectomy or Spleen Trauma: No Other PMH: Multiple sclerosis, TIA in September 2014, thyroid CA- thyroid removed 30yrs ago, neurogenic bladder, sepsis - Social History Smoking Status: Former smoker - Physical Exam Exam: General Appearance: Alert, no distress Eyes: Pupils equal and round no pallor or injection ENT, Mouth: Mucous membranes moist Respiratory: There are no retractions, lungs are clear to auscultation Cardiovascular: Regular rate and rhythm Gastrointestinal: Abdomen is soft and nontender, no masses, bowel sounds normal Neurological: Global weakness secondary to multiple sclerosis Skin: Warm and dry, no rashes Musculoskeletal: Neck is supple nontender Extremities: symmetrical, full range of motion Psychiatric: Patient is oriented X 3, there is no agitation Constitutional: Initial Vital Signs Temperature (C) 37.1 C 02/24/18 07:37 Heart Rate 68 02/24/18 07:37 Respiratory Rate 16 02/24/18 07:37 Blood Pressure 119/76 02/24/18 07:37 O2 Sat (%) 95 02/24/18 07:37 O2 Delivery Mode Room Air Allergies/Adverse Reactions: Penicillins Allergy (Severe, Verified 02/04/18 13:44) Anaphylaxis iodine Allergy (Mild, Verified 02/04/18 13:44) Rash Home Medications: Medication Instructions Recorded Baclofen [Baclofen 10 mg (*)] 5 - 10 mg PO QID PRN 09/07/13 Oxybutynin Chloride [Ditropan] 5 - 10 mg PO HS 01/12/15 Diazepam [Valium 5 MG (*)] 2.5 - 5 mg PO HS PRN 10/21/15 Methenamine Hippurate [METHENAMINE 1 g PO DAILY@,10/21/15 HIPPURATE] Aspirin EC [Aspirin EC 81 mg (*)] 81 mg PO HS 02/04/18 Calcium Carbonate [Oyster Shell 500 mg PO BID@12,02/04/18 Calcium 500 mg (*)] Dalfampridine [AMPYRA] 10 mg PO BID 02/04/18 Gabapentin [Neurontin 300 MG (*)] 600 mg PO HS 02/04/18 Levothyroxine [Synthroid 112 mcg 112 mcg PO DAILY06 02/04/18 (*)] Sulfamethox/Tmp 800/160 mg 1 ea PO BID tab 02/11/18 [Bactrim DS] Medical Decision Making ED Course/Re-evaluation: The patient presents to the ED with a recurrent urinary tract infection. The patient does not have septic physiology and does not have SIRS. A urine culture has been obtained. The patient did start taking Keflex yesterday. The patient was given a g of Rocephin. He was offered hospitalization however prefers to go home. I feel this is reasonable as he does not have septic physiology. The patient does have adequate Keflex at home to take a 7 day course. The patient understands to return to the emergency department for any fever, shaking chills, increasing weakness or other concerns. Differential Diagnosis: Differential diagnosis considered includes pyelonephritis, dehydration, metabolic abnormality, bacteremia - Data Points Laboratory Results: Laboratory Results 02/24/18 08:25 02/24/18 08:25 02/24/18 02/24/18 02/24/18 08:25 08:25 08:05 WBC 17.74 10^3/uL H 10^3/uL (3.80-9.50) RBC 4.47 10^6/uL 10^6/uL (4.40-6.38) Hgb 15.0 g/dL g/dL (13.7-17.5) Hct 44.2 % % (40.0-51.0) MCV 98.9 fL fL (81.5-99.8) MCH 33.6 pg pg (27.9-34.1) MCHC 33.9 g/dL g/dL (32.4-36.7) RDW 14.2 % % (11.5-15.2) Plt Count 218 10^3/uL 10^3/uL (150-400) MPV 11.2 fL fL (8.7-11.7) Neut % (Auto) 86.4 % H % (39.3-74.2) Lymph % (Auto) 5.4 % L % (15.0-45.0) [place] % (Auto) 7.3 % % (4.5-13.0) Eos % (Auto) 0.1 % L % (0.6-7.6) Baso % (Auto) 0.3 % % (0.3-1.7) Nucleat RBC Rel Count 0.0 % % (0.0-0.2) Absolute Neuts (auto) 15.34 10^3/uL H 10^3/uL (1.70-6.50) Absolute Lymphs (auto) 0.96 10^3/uL L 10^3/uL (1.00-3.00) Absolute Monos (auto) 1.29 10^3/uL H 10^3/uL (0.30-0.80) Absolute Eos (auto) 0.01 10^3/uL L 10^3/uL (0.03-0.40) Absolute Basos (auto) 0.05 10^3/uL 10^3/uL (0.02-0.10) Absolute Nucleated RBC 0.00 10^3/uL 10^3/uL (0-0.01) Immature Gran % 0.5 % % (0.0-1.1) Immature Gran # 0.09 10^3/uL 10^3/uL (0.00-0.10) Sodium 139 mEq/L mEq/L (135-145) Potassium 4.3 mEq/L mEq/L (3.3-5.0) Chloride 104 mEq/L mEq/L (97-110) Carbon Dioxide 27 mEq/l mEq/l (22-31) Anion Gap 8 mEq/L mEq/L (8-16) BUN 15 mg/dL mg/dL (7-23) Creatinine 0.8 mg/dL mg/dL (0.7-1.3) Estimated GFR > 60 Glucose 102 mg/dL H mg/dL (70-100) Calcium 9.2 mg/dL mg/dL (8.5-10.4) Urine Color YELLOW Urine Appearance CLEAR Urine pH 5.0 (5.0-7.5) Ur Specific [place] 1.018 (1.002-1.030) Urine Protein NEGATIVE (NEGATIVE) Urine Ketones 1+ H (NEGATIVE) Urine Blood NEGATIVE (NEGATIVE) Urine Nitrate NEGATIVE (NEGATIVE) Urine Bilirubin NEGATIVE (NEGATIVE) Urine Urobilinogen NEGATIVE EU EU (0.2-1.0) Ur Leukocyte Esterase 2+ H (NEGATIVE) Urine RBC NONE SEEN /hpf /hpf (0-3) Urine WBC 50-182 /hpf H /hpf (0-3) Ur Epithelial Cells NONE SEEN /lpf /lpf (NONE-1+) Urine Glucose NEGATIVE (NEGATIVE) Departure - Departure Disposition: Home, Routine, Self-Care Clinical Impression: UTI (urinary tract infection) Condition: Good Instructions: Urinary Tract Infection in Men (ED) Additional Instructions: 1. Take Keflex for the next 7 days. 2. Return to the ED for fever, increasing pain, weakness or other concerns. 3. Follow up with your primary care provider as scheduled. Referrals: Chintan Novak MD [Primary Care Provider] - As per Instructions
[2018-02-24 08:32] LABS: PLATELET COUNT 218 10^3/uL (150-400)
[2018-02-24] MEDS ORDERED: NS 1,000 ML IV ONE ×2 (09:17)
[2018-02-24 12:00] VITALS: BP 128/77
--- NOTE | 2018-02-24 14:00 | ASMTCMCOM ---
CM Note CM Note Notes: Pt presented to the Emergency Department with symptoms of a UTI. Pt was discharged from [facility] on Monday02/21/18. He was recently discharged from [facility] following urosepsis. History includes MS, thyroid cancer, TIA, neurogenic bladder, sepsis, frequent UTIs. Pt lives alone but has good support. Pt is currently open with [facility] (RN, PT, [employer] services). Pt also receives services through [employer] from [facility] for 2 hours of SAF[employer] INST[employer] assistance/day and 4 hrs of shopping, laundry, cleaning assistance/week. Met with pt to discuss current needs. Pt states he called EMS this morning and needs assistance getting home. Pt called his best friend Anjel to bring in his manual wheelchair. Call placed to [employer] , spoke with Claire. Wheelchair accessible transport requested; confirmation number received [id number]. Update provided to SARAHY uDnne and pt. Pt reports calling his nephew, Chauncey for a ride home and for assistance getting into power wheelchair at home. Call placed to [employer], transportation canceled. Pt denies further needs. Pt to follow up as directed. CM available for any further issues or concerns. Date Signed: 02/24/2018 01:58 PM Electronically Signed By:Cynthia Whitt RN
== END 2018-02-24 12:25 | disposition home or self-care (01) ==
LOC: EDUNIT#
DX: N39.0 Urinary tract infection, site not specified (principal); E86.9 Volume depletion, unspecified; N31.9 Neuromuscular dysfunction of bladder, unspecified; G35 Multiple sclerosis; E89.0 Postprocedural hypothyroidism; Z87.440 Personal history of urinary (tract) infections; Z86.73 Personal history of transient ischemic attack (TIA), and cerebral infarction without residual deficits; Z88.0 Allergy status to penicillin
CPT/HCPCS: 96361; 96365; 99284; J0696

== ENCOUNTER 2018-02-24 18:24 | Inpatient (IN) | payer OTHER, MEDICAID ==
--- NOTE | 2018-02-24 18:23 | EDPHY ---
H & P Time Seen by Provider: 02/24/18 18:23 HPI/ROS: CHIEF COMPLAINT: HISTORY OF PRESENT ILLNESS: REVIEW OF SYSTEMS: A ten system review of systems was performed and is negative with the exception of the items mentioned in the HPI. Past medical history: Past surgical history: Family history: Social history: General Appearance: Alert. Vital signs reviewed. Eyes: Pupils equal and round, no conjunctival injection, no discharge. Anicteric. ENT, Mouth: Mucous membranes are moist, no oropharyngeal erythema or edema. Neck: No lymphadenopathy, supple. Respiratory: Lungs are clear to auscultation; no wheezes, rales, or rhonchi. Cardiovascular: Regular rate and rhythm; no murmur, rub, or gallop. Gastrointestinal: Abdomen is soft and nontender, no masses or organomegaly, bowel sounds normal. Skin: Warm and dry, no rashes on exposed skin, normal color. Back: Nontender to palpation over the thoracolumbar spine. No CVAT. Extremities: No lower extremity edema, no calf tenderness or swelling. Neurological: Alert and oriented. Moving all four extremities easily and equally. Cranial nerves II through XII are examined and are intact (visual acuity not tested). Strength is 5 over 5 bilaterally with testing of all major motor groups. Sensation is intact to light touch over all 4 extremities. Deep tendon reflexes are 2+ in the biceps and knees bilaterally. Gait is normal. [id number] is performed accurately. Psychiatric: Normal affect.
[2018-02-24] MEDS ORDERED: ACETAMINOPHEN 500 MG TAB PO ONE (18:55)
[2018-02-24] MEDS ORDERED: ACETAMINOPHEN 500 MG TAB ONE (18:58)
[2018-02-24] MEDS ORDERED: ONDANSETRON 4 MG/2 ML VIAL IVP PRN (19:13)
[2018-02-24] MEDS ORDERED: ACETAMINOPHEN 325 MG TAB PO PRN (19:13)
[2018-02-24] MEDS ORDERED: ONDANSETRON DISINTEGRATING 4 MG TAB PO PRN (19:13)
--- NOTE | 2018-02-24 19:20 | PDGENHP ---
History and Physical - Chief Complaint Acute weakness - History of Present Illness Primary care provider: Dr. Chintan Novak Primary neurologist: Dr. Gilbert Jenkins Primary pain specialist: Dr. Breen HPI: 63-year-old male presenting with acute weakness characterized as diffuse, generalized weakness resulting in inability to complete activities of daily living evidenced by consistently dropping objects, associated slowed movements, falls. The patient reports onset of symptoms on the day prior to presentation, and duration has been persistent worsening thereafter. He reports that on 02/23 , he began experiencing muscular spasms as well as muscular stiffness and this resulted in a fall from the seated position. He reports some twisting an awkward positioning, resulting in some left-sided rib pain. He took 1 dose of Keflex, went to bed, and awoke this morning with worsening weakness, particularly in his upper extremities, resulting in inability to use any of his limbs other than his left upper extremity. He normally utilizes his upper extremities to help him transfer from bed to power wheelchair, and he was unable to do so. Consequently, he came into the emergency department, had a urinalysis, urine culture, blood cultures drawn, received 1 dose of IV ceftriaxone, and felt comfortable going back home with oral Keflex. He took 1 dosage of Keflex after returning home, had several family members come check on him, and decided that his weakness was progressing and rendering him on safe to be at home. He reports the character of symptoms to be very similar to those consistent with his history of urinary tract infections. Of note, he transition home from [facility] 1 week prior to this presentation. He did not take any of his home medications on the morning of presentation. History Information - Allergies/Home Medication List Allergies/Adverse Reactions: Penicillins Allergy (Severe, Verified 02/04/18 13:44) Anaphylaxis iodine Allergy (Mild, Verified 02/04/18 13:44) Rash Home Medications: Baclofen [Baclofen 10 mg (*)] 5 - 10 mg PO QID PRN 09/07/13 [Last Taken 02/23/18 ] Oxybutynin Chloride [Ditropan] 5 - 10 mg PO HS 01/12/15 [Last Taken 02/23/18] Diazepam [Valium 5 MG (*)] 2.5 - 5 mg PO HS PRN 10/21/15 [Last Taken 02/03/18] Methenamine Hippurate [METHENAMINE HIPPURATE] 1 g PO DAILY@10/21/15 [Last Taken 02/23/18] Dalfampridine [AMPYRA] 10 mg PO BID 02/04/18 [Last Taken 02/23/18] Gabapentin [Neurontin 300 MG (*)] 300 mg PO HS 02/04/18 [Last Taken 02/23/18] Levothyroxine [Synthroid 112 mcg (*)] 112 mcg PO DAILY06 02/04/18 [Last Taken ] I have personally reviewed and updated: family history, medical history, social history, surgical history - Past Medical History Additional medical history: MS with bilateral lower extremity paresis at baseline, wheelchair-bound. Thyroid CA. Hypothyroid. TIA. Recurrent urinary tract infections including Klebsiella, Enterococcus, Morganella, E coli exclusively over the past 2 years - Surgical History Additional surgical history: Thyroid surgery with lymph node removal. Posterior neck steroid injections - Family History Additional family history: Denies family hx of MS - Social History Smoking Status: Former smoker Alcohol Use: Rarely Drug Use: None Additional social history: Returned home from rehab 1 week ago, uses power wheelchair at baseline, does not receive much help from family members Review of Systems Review of Systems: ROS: 10pt was reviewed & negative except for what was stated in HPI & below Constitutional: Reports: chills, malaise, weakness Physical Exam Physical Exam: Temp Pulse Resp BP Pulse Ox 37.6 C 90 16 132/86 H 95 02/24/18 18:25 02/24/18 18:53 02/24/18 18:53 02/24/18 18:53 02/24/18 18:53 Constitutional: appears nourished, not in pain, chronically ill appearing, uncomfortable Eyes: PERRL, anicteric sclera, EOMI Ears, Nose, Mouth, Throat: hearing normal, no oral mucosal ulcers, other (Tacky mucous membranes) Cardiovascular: tachycardia, No systolic murmur, No irregularly irregular, No edema Respiratory: no respiratory distress, no rales or rhonchi, clear to auscultation Gastrointestinal: normoactive bowel sounds, soft, non-tender abdomen, no palpable masses, No distension Genitourinary: other (Full bladder, left-sided flank tenderness) Skin: warm (Abrasion on right knee) Musculoskeletal: other (Bilateral lower extremity distal muscle atrophy, contracture bilateral wrists) Neurologic: AAOx3, weakness (1/5 motor strength bilateral lower extremities, 3/ 5 proximal muscle strength right upper extremity, 4/5 proximal muscle strength left upper extremity, 3/5 left wrist extension) Psychiatric: not encephalopathic, thought process linear, anxious, No agitated Assessment & Plan Assessment: 63-year-old male presents with suspected catheter associated urinary tract infection Plan: 1. Suspected catheter associated urinary tract infection. Present on admission , acute, new problem this provider, further workup indicated. Evidenced by urinalysis with 2+ leukocyte esterase, positive white blood cells, leukocytosis , systemic symptoms consistent with previous urinary tract infections for this patient who is straight catheter dependent due to neurogenic bladder from multiple sclerosis -monitor urine culture drawn this morning during his emergency department encounter -repeat white blood cell count tomorrow a.m. after receiving antibiotics -reviewed outside records including most recent E coli sensitivities, pansensitive, but does have history of Klebsiella, Enterococcus, Morganella -reviewed outside records including discharge summary by Dr. Giuseppe Green from 02/10/2018 indicating that the patient was treated with IV Ancef for pansensitive E coli, with 10 days of Bactrim thereafter comma recently discontinued antibiotics on 02/19 -patient has received IV ceftriaxone and IV levofloxacin within the past 24 hr, this combination should cover his spectrum of previous organisms including E coli, Klebsiella, Enterococcus, Morganella -will continue with oral levofloxacin but tailor the antibiotic to urine culture 2. Acute on chronic paresis. Secondary to acute exacerbation of multiple sclerosis in the setting of infection, not an overt multiple sclerosis flare -hold on steroids -continue home medications -get OT eval -suspect patient will require rehab following this episode of care, he is averse to flat irons Diet. Regular Prophylaxis. High risk, Lovenox 40 Code. Full per patient, his best friend Anjel Merritt is his designated MD POA Disposition. Anticipated discharge uncertain this time, anticipated length stay greater than 48 hr for reasonable medical necessity including suspected catheter associated urinary tract infection which has failed outpatient management with oral and IV antibiotics, as detailed above, requiring inpatient antibiotic adjustments as well as assistance with activities of Daily Living is the patient is high risk for recurrent falls and worsening morbidity and/or mortality if sent home at this time. I have discussed patient's presentation with Dr. Jazmin Diaz, she and I both agree patient meets inpatient admission status.
[2018-02-24] MEDS: NS 1,000 ML IV SCH (20:10)
[2018-02-24] MEDS: IBUPROFEN 200 MG TAB PO PRN (20:15)
[2018-02-24] MEDS: OXYBUTYNIN CHLORIDE 5 MG TAB PO SCH (21:35)
[2018-02-24] MEDS: METHENAMINE HIPP 1 GM TAB PO SCH (21:35)
[2018-02-24] MEDS: GABAPENTIN 300 MG CAP PO SCH (21:35)
[2018-02-24] MEDS: DIAZEPAM 5 MG TAB PO PRN (21:38)
[2018-02-24] MEDS: NON-FORMULARY NEW DRUG (Dalfampridine [Ampyra] 10 MG) PO SCH (22:18)
[2018-02-25] MEDS: LEVOTHYROXINE 112 MCG TAB PO SCH (04:37)
[2018-02-25 05:09] LABS: PLATELET COUNT 187 10^3/uL (150-400)
[2018-02-25] MEDS: NS 1,000 ML IV SCH (08:15)
[2018-02-25] MEDS: BACLOFEN 10 MG TAB PO PRN ×2 (08:17→21:35)
[2018-02-25] MEDS: ENOXAPARIN 40 MG/0.4 ML SYR SC SCH ×2 (08:17→08:18)
[2018-02-25] MEDS: NON-FORMULARY NEW DRUG (Dalfampridine [Ampyra] 10 MG) PO SCH ×2 (08:20→21:44)
--- NOTE | 2018-02-25 09:39 | HOSPPROG ---
Hospitalist Progress Note Assessment/Plan: DIAGNOSES: * acute CAUTI present on admission * Suspicion for resistant organisms as he has recent hospital and retirement stays; had a sensitive E coli on February 04 * Chronic catheter for neurogenic bladder * acute exacerbation of chronic MS symptoms due to above * Impaired mobility; patient wheelchair bound but usually able to do self transfers and lives in his own house has part-time caregivers * muscle injury to left lateral abdomen/flank with pain and tenderness, could potentially aggravate mobility issues * mild normocytic anemia likely due to recurrent infections * chronic MS with impaired mobility and neurogenic bladder PLANS: * Continue empiric antibiotics waiting for cultures * Physical occupational therapy * Ice to his left flank muscle injury * Hopefully home in 1-2 days depending on his strength and mobility SUBJECTIVE: Feels notably better overnight with some return of strength OBJECTIVE Vitals reviewed: So far today afebrile, blood pressure is slightly low other vitals normal Exam: alert oriented skin warm dry color ok resps not labored lungs clear BSs heart regular abd soft nondistended, bowel sounds present; some mild to moderate tenderness left flank but no kid knee or costovertebral angle tenderness Urine catheter currently draining clear yellow urine limbs warm, no edema iv site ok Micro: Urine cultures pending Lab data: White blood cell count remains elevated at 15,000 though slightly better than yesterday, very mild normocytic anemia Mild hyperchloremia otherwise stable metabolic panel Objective: Vital Signs Temp Pulse Resp BP Pulse Ox 36.8 C 82 16 93/57 L 96 02/25/18 04:00 02/25/18 04:00 02/25/18 04:00 02/25/18 04:00 02/25/18 04:00 Laboratory Results 02/25/18 04:12 02/25/18 04:12 02/24/18 02/25/18 02/26/18 06:59 06:59 06:59 Intake Total 100 Output Total 1400 Balance -1300 ICD10 Worksheet Patient Problems: Problems Problem Status Onset Blurred vision Acute Multiple sclerosis Acute TIA (transient ischemic attack) Acute Fever Acute Generalized weakness Acute Acute pyelonephritis Acute UTI (urinary tract infection) Acute Spasms of the hands or feet Acute Multiple sclerosis exacerbation Acute Dehydration Acute
--- NOTE | 2018-02-25 09:40 | PDMN ---
Medical Necessity Medical necessity: MCG M300 UTI A-2 days: suspect catheter associated UTI in pt 2+ leukocyte esterase, + WBC, leukocytosis, pt is straight cath dependent due to neurogenic bladder from MS., pt recently tx with IV ancef for pansensitive E coli, with 10 days of Bactrim thereafter. pt with MS with acute on chronic paresis, fall risk at home due to increased weakness, inability to complete ADL's, further monitoring and tx needed anticipate > 2 MN.
[2018-02-25] MEDS: METHENAMINE HIPP 1 GM TAB PO SCH ×2 (13:13→21:35)
--- NOTE | 2018-02-25 16:00 | ASMTCMCOM ---
CM Note CM Note Notes: Case Management Chart Review for Discharge Support: Elfego is a 63 year old male admitted for acute weakness related to UTI. Patient was seen in the ED yesterday morning & declined hospitalization, he returned to the ED and was admitted. Dru was recently discharged from [facility] on 02/23/18. CM met with patient, he is eager to go home by tomorrow & states he feels much better today. He has been working on getting support from friends to watch his dog Nehemiah, his best friend Anjel is currently caring for the dog and a friend Teressa will take the dog tonight (this was a big reason patient wanted to be discharged today but is relieved to find support). Patient is connected to [place] Medicaid with [facility] and receives [employer] care 2 hrs a day Mon-Mon, homemaker 8 hours a week, and RN Mondays to do vitals and med support. CM gave patient [facility] brochure. Discharge likely within 1-3 days, CM to follow. Current Discharge Plan: likely home in 1-3 days, return to care with Family . Date Signed: 02/25/2018 04:00 PM Electronically Signed By:Maricarmen Lockhart
[2018-02-25] MEDS: GABAPENTIN 300 MG CAP PO SCH (21:35)
[2018-02-25] MEDS: OXYBUTYNIN CHLORIDE 5 MG TAB PO SCH (21:35)
[2018-02-25] MEDS: IBUPROFEN 200 MG TAB PO PRN (21:42)
[2018-02-25] MEDS: DIAZEPAM 5 MG TAB PO PRN (21:42)
--- NOTE | 2018-02-25 22:17 | EDPHY ---
H & P Stated Complaint: UTI would like admission Time Seen by Provider: 02/24/18 18:23 HPI/ROS: CHIEF COMPLAINT: Urinary tract infection HISTORY OF PRESENT ILLNESS: This is a 63-year-old male with multiple sclerosis , neurogenic bladder, and history of recurrent urinary tract infections. He self catheterizes. He was seen in the emergency department earlier today and diagnosed with urinary tract infection. He was offered hospitalization but chose to return home. He is back tonight stating that he has reconsidered and that he will need to stay in the hospital as he has been becoming progressively weaker throughout the day and is now unable to adequately care for himself at home. He does have some home care but does not feel that he has sufficient support. He was admitted to this hospital on February 04 with urinary tract infection/urosepsis and was just discharged from [facility] on February 21. REVIEW OF SYSTEMS: A ten system review of systems was performed and is negative with the exception of the items mentioned in the HPI. Past medical history: 1. Multiple sclerosis 2. Neurogenic bladder with self catheterization 3. History of recurrent urinary tract infections 4. Thyroid cancer status post thyroidectomy 5. History of TIA Social history: He lives alone with some in-home care. He has a dog. He uses a power wheelchair. No tobacco use--she quit smoking in the . Rare alcohol use. 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 General Appearance: Alert. Vital signs reviewed. Afebrile. Eyes: Pupils equal and round, no conjunctival injection, no discharge. Anicteric. ENT, Mouth: Mucous membranes are slightly dry, no oropharyngeal erythema or edema. Neck: No lymphadenopathy, supple. Respiratory: Lungs are clear to auscultation; no wheezes, rales, or rhonchi. Cardiovascular: Regular rate and rhythm; no murmur, rub, or gallop. Gastrointestinal: Abdomen is soft and nontender, no masses or organomegaly, bowel sounds normal. Skin: Warm and dry, no rashes on exposed skin, normal color. Extremities: No lower extremity edema. Neurological: Alert and oriented. FLORESITA. EOMI expressions symmetric. Tongue midline. 3/5 upper extremity strength, which he tells me is worse than usual. 0/5 lower extremity strength. Psychiatric: Normal affect. - Personal History Current Tetanus/Diphtheria Vaccine: Unsure Current Tetanus Diphtheria and Acellular Pertussis (TDAP): Unsure Tetanus Vaccine Date: 06/2011 - Medical/Surgical History Hx Asthma: No Hx Chronic Respiratory Disease: No Hx Diabetes: No Hx Cardiac Disease: No Hx Renal Disease: No Hx Cirrhosis: No Hx Alcoholism: No Hx HIV/AIDS: No Hx Splenectomy or Spleen Trauma: No Other PMH: Multiple sclerosis, TIA in September 2014, thyroid CA- thyroid removed 30yrs ago, neurogenic bladder, sepsis - Social History Smoking Status: Former smoker Constitutional: Initial Vital Signs Temperature (C) 37.6 C 02/24/18 18:25 Heart Rate 90 02/24/18 18:25 Respiratory Rate 16 02/24/18 18:25 Blood Pressure 132/86 H 02/24/18 18:25 O2 Sat (%) 95 02/24/18 18:25 O2 Delivery Mode Room Air Allergies/Adverse Reactions: Penicillins Allergy (Severe, Verified 02/04/18 13:44) Anaphylaxis iodine Allergy (Mild, Verified 02/04/18 13:44) Rash Home Medications: Medication Instructions Recorded Baclofen [Baclofen 10 mg (*)] 5 - 10 mg PO QID PRN 09/07/13 Oxybutynin Chloride [Ditropan] 5 - 10 mg PO HS 01/12/15 Diazepam [Valium 5 MG (*)] 2.5 - 5 mg PO HS PRN 10/21/15 Methenamine Hippurate [METHENAMINE 1 g PO DAILY@12,10/21/15 HIPPURATE] Dalfampridine [AMPYRA] 10 mg PO BID 02/04/18 Gabapentin [Neurontin 300 MG (*)] 300 mg PO HS 02/04/18 Levothyroxine [Synthroid 112 mcg 112 mcg PO DAILY06 02/04/18 (*)] Cephalexin [Keflex] 500 mg PO TID #21 cap 02/24/18 Medical Decision Making ED Course/Re-evaluation: 63-year-old male with history of multiple sclerosis and worsening weakness secondary to urinary tract infection. He will be admitted to the hospital. Antibiotics will be continued, urine culture pending. I have not identified any new issues since his earlier visit today. Differential Diagnosis: Considered a differential diagnosis that includes but is not limited to urinary tract infection, urosepsis, pyelonephritis, multiple sclerosis exacerbation. - Data Points Medications Given: Baclofen (Baclofen) 5 - 10 mg PO QID PRN PRN Reason: Spasms Stop: 08/23/18 20:31 Last Admin: 02/25/18 21:35 Dose: 10 mg Diazepam (Valium) 2.5 - 5 mg PO HS PRN PRN Reason: spasm, cramps Stop: 08/23/18 20:31 Last Admin: 02/25/18 21:42 Dose: 5 mg Enoxaparin Sodium (Lovenox) 40 mg SC DAILY [facility] Stop: 08/24/18 08:59 Last Admin: 02/25/18 08:18 Dose: Not Given Gabapentin (Neurontin) 300 mg PO HS [facility] Stop: 08/23/18 20:59 Last Admin: 02/25/18 21:35 Dose: 300 mg Ibuprofen (Motrin) 400 mg PO Q4HRS PRN PRN Reason: Pain, Mild/Fever, Can Take PO Stop: 08/23/18 19:12 Last Admin: 02/25/18 21:42 Dose: 400 mg Levofloxacin (Levaquin) 750 mg PO DAILY AT 10AM [facility] PRN Reason: Protocol Stop: 03/27/18 09:59 Last Admin: 02/25/18 09:49 Dose: 750 mg Levothyroxine Sodium (Synthroid) 112 mcg PO DAILY06 [facility] Stop: 08/24/18 05:59 Last Admin: 02/25/18 04:37 Dose: 112 mcg Methenamine Mandelate (Methenamine Ines) 1 gm PO DAILY@12,21 [facility] PRN Reason: Protocol Stop: 03/26/18 20:59 Last Admin: 02/25/18 21:35 Dose: 1 gm Miscellaneous Medication (Dalfampridine [Ampyra]) 10 mg PO BID [facility] Stop: 08/23/18 20:59 Last Admin: 02/25/18 21:44 Dose: Not Given Oxybutynin Chloride (Ditropan) 5 - 10 mg PO HS [facility] Stop: 08/23/18 20:59 Last Admin: 02/25/18 21:35 Dose: 10 mg Discontinued Medications Acetaminophen (Tylenol) 500 mg PO ONCE ONE Stop: 02/24/18 18:56 Last Admin: 02/24/18 18:59 Dose: 500 mg Levofloxacin/Dextrose (Levaquin 750 Mg (Premix)) 150 mls @ 100 mls/hr IV EDNOW ONE PRN Reason: Protocol Stop: 02/24/18 20:10 Last Admin: 02/24/18 18:49 Dose: 150 mls Sodium Chloride (Ns) 1,000 mls @ 100 mls/hr IV CONT [facility] Stop: 08/23/18 19:14 Last Admin: 02/25/18 08:15 Dose: 1,000 mls Influenza Virus Vaccine Quadrival (Flulaval Quad [id number] (6mo+)) 0.5 ml IM .ONCE ONE Stop: 02/25/18 08:34 Last Admin: 02/25/18 09:50 Dose: 0.5 ml Departure - Departure Disposition: [facility] Inpatient Acute Clinical Impression: UTI (urinary tract infection) Qualifiers: Urinary tract infection type: catheter-associated UTI Indwelling urinary catheter type: unspecified Encounter type: subsequent encounter Qualified Code(s ): T83.511D - Infection and inflammatory reaction due to indwelling urethral catheter, subsequent encounter; N39.0 - Urinary tract infection, site not specified; N39.0 - Urinary tract infection, site not specified Condition: Fair
[2018-02-26] MEDS: LEVOTHYROXINE 112 MCG TAB PO SCH (05:16)
[2018-02-26] MEDS: BACLOFEN 10 MG TAB PO PRN ×2 (05:16→10:04)
[2018-02-26 07:45] VITALS: BP 118/77
[2018-02-26] MEDS: IBUPROFEN 200 MG TAB PO PRN (07:57)
--- NOTE | 2018-02-26 08:59 | PDDCSUM ---
Discharge Summary Discharge Summary: DISCHARGE DIAGNOSES: * acute urinary tract infection * acute exacerbation of MS symptoms caused by above * impaired safety for transfers and mobility HOSPITAL COURSE SUMMARY: This patient who has advanced MS and neurogenic bladder comes in with significant worsening of chronic MS symptoms caused by acute urinary tract infection. The urinary tract infection was otherwise uncomplicated. Urine cultures did grow an E coli that is pansensitive. He has responded very nicely to some hydration and antibiotics here is pretty much back to his baseline functionality. He is eating well drinking well. At this point he is stable for discharge to home. We have assessed his mobility issues very careful here with her therapist. He has chronically physical therapy and home health aides but he will need some increase in these to get him back home and going again. PENDING TEST RESULTS: none MEDICATION CHANGES: levaquin 750 FOLLOW-UP PLAN: with mice raiser in 1 week home care arranged with RN, PT, aide Greater than 35 minutes bedside and care coordination time today
[2018-02-26] MEDS: NON-FORMULARY NEW DRUG (Dalfampridine [Ampyra] 10 MG) PO SCH (09:51)
[2018-02-26] MEDS: ENOXAPARIN 40 MG/0.4 ML SYR SC SCH (09:52)
--- NOTE | 2018-02-26 09:58 | ASMTDCNOTE ---
Case Management Discharge Discharge Order Complete? Answers: Yes Patient to Obtain Answers: Independently Medications Transportation Arranged Answers: [facility] W/C Transport will Pick (Date 02/26/2018 01:00 PM & Time) EMTALA Complete Answers: No Case Management Transport Answers: Yes Form Complete Faxed Final Orders Answers: Yes Agency/Facility Transfer Answers: Yes Report Printed & Faxed to Receiving Agency Family Notified Answers: No Discharge Comments Notes: Pts case discussed w/ Dr. Berger and SARAHY Kelley. Pt is being discharged today. DC orders sent to Family for resumption of services. CM arranged transportation to get home via [facility] in his manual wheelchair. CM available for changes. Plan: [facility]; PT, RN, HARVESTING SUPERVISOR Date Signed: 02/26/2018 09:57 AM Electronically Signed By:JOYCE Colby
--- NOTE | 2018-02-26 09:59 | ASMTLACE ---
LACE Length of stay for Answers: 3 days current admission Acuity / Level of Answers: Yes Care: Did the patient have an inpatient admission? Comorbidities - select Answers: Cerebrovascular disease all that apply (CVA, TIA, aneurysms, vasc ular dementia) Opioid dependence / Chronic pain # of Emergency department Answers: 5-8 visits in the last 6 months Score: 15 Date Signed: 02/26/2018 09:57 AM Electronically Signed By:JOYCE Colby
--- NOTE | 2018-02-26 10:13 | PDIAF ---
- Diagnosis Diagnosis: UTI, exacerbation of MS symptoms due to UTI Code Status: Full Code - Medication Management Discharge Medications: Medications to Continue on Transfer Baclofen [Baclofen 10 mg (*)] 5 - 10 mg PO QID PRN 09/07/13 [Last Taken 02/23/18 ] Oxybutynin Chloride [Ditropan] 5 - 10 mg PO HS 01/12/15 [Last Taken 02/23/18] Diazepam [Valium 5 MG (*)] 2.5 - 5 mg PO HS PRN 10/21/15 [Last Taken 02/03/18] Methenamine Hippurate [METHENAMINE HIPPURATE] 1 g PO DAILY@10/21/15 [Last Taken 02/23/18] Dalfampridine [AMPYRA] 10 mg PO BID 02/04/18 [Last Taken 02/23/18] Gabapentin [Neurontin 300 MG (*)] 300 mg PO HS 02/04/18 [Last Taken 02/23/18] Levothyroxine [Synthroid 112 mcg (*)] 112 mcg PO DAILY06 02/04/18 [Last Taken ] levOFLOXACIN [levAQUIN (*)] 750 mg PO DAILY AT 10AM #7 tab 02/26/18 [Last Taken Unknown] Discharge Medications: Refer to the Discharge Home Medication list for PRN reason. - Orders Services needed: Home Care, Registered Nurse, Certified Sash Finisher, Physical Therapy Home Care Face to Face: I certify that this patient was under my care and that I had the required [id number] encounter meeting the encounter requirements on the discharge day. My findings support the fact that the patient is homebound as defined in Home Care Face to Face Continued: CMS Chapter 7 Medicare Benefits Manual 30.1.1 , The condition of the patient is such that there exists a normal inability to leave home and consequently, leaving home would require a considerable and taxing effort. Isolation Type: None Diet Recommendation: no restrictions on diet Diet Texture: Regular Texture Diet - Follow Up Care Current Providers and Referrals: NONE *PRIMARY CARE P,. [Unknown] -
[2018-02-26] MEDS: METHENAMINE HIPP 1 GM TAB PO SCH (12:13)
--- NOTE | 2018-02-26 16:08 | ASDISCHSUM ---
Discharge Information Plan Status:Home with Home Health Medically Cleared to Leave:02/26/2018 Discharge Date:02/26/2018 01:05 PM D/C Disposition: ADT D/C Disposition:Home, Routine, Self-Care Projected Discharge Date:02/26/2018 11:00 AM Transportation at D/C: Discharge Delay Reason: Follow-Up Date:02/26/2018 11:00 AM Discharge Slot: Final Diagnosis: Placement Information Referral Type:*Home Health Care Services Referral ID:[id number] Provider Name:[facility] Address 1:[address] [address] Address 2: City:[place] Selection Factors: State:[place] Patient Contact Information Contact Name:CARLOS Relationship:Friend Address: Work Phone: City: [facility] Phone: [facility] Code: Email: Financial Information Financial Class:Medicare Advantage Plans Primary Plan Desc:[facility] [employer] Primary Plan Number:[id number] Secondary Plan Desc:[place] Secondary Plan Number:[id number] Assessment Information [facility] CM Progress Note CM Note CM Note Notes: Case Management Chart Review for Discharge Support: Elfego is a 63 year old male admitted for acute weakness related to UTI. Patient was seen in the ED yesterday morning & declined hospitalization, he returned to the ED and was admitted. Dru was [facility]. CM met with patient, he is eager to go home by tomorrow & states he feels much better today. He has been working on getting support from friends to watch his dog Nehemiah, his best friend Anjel is currently caring for the dog and a friend Teressa will take the dog tonight (this was a big reason patient wanted to be discharged today but is relieved to find support). Patient is connected to [facility] Medicaid with [facility] and receives GENERAL SUPERINTENDENT care 2 hrs a day Mon-Mon, homemaker 8 hours a week, and RN Mondays to do vitals and med support. CM gave patient [facility] brochure. Discharge likely within 1-3 days, CM to follow. Current Discharge Plan: likely home in 1-3 days, return to care with [facility]. Date Signed: 02/25/2018 04:00 PM Electronically Signed By:Maricarmen Lockhart LACE LACE Length of stay for Answers: 3 days current admission Acuity / Level of Answers: Yes Care: Did the patient have an inpatient admission? Comorbidities - select Answers: Cerebrovascular disease all that apply (CVA, TIA, aneurysms, vasc ular dementia) Opioid dependence / Chronic pain # of Emergency department Answers: 5-8 visits in the last 6 months Score: 15 Date Signed: 02/26/2018 09:57 AM Electronically Signed By:JOYCE Colby Case Management Discharge Plan Note Case Management Discharge Discharge Order Complete? Answers: Yes Patient to Obtain Answers: Independently Medications Transportation Arranged Answers: [facility] W/C Transport will Pick (Date 02/26/2018 01:00 PM & Time) EMTALA Complete Answers: No Case Management Transport Answers: Yes Form Complete Faxed Final Orders Answers: Yes Agency/Facility Transfer Answers: Yes Report Printed & Faxed to Receiving Agency Family Notified Answers: No Discharge Comments Notes: Pts case discussed w/ Dr. Berger and SARAHY Kelley. Pt is being discharged today. DC orders sent to Family for resumption of services. CM arranged transportation to get home via [facility] in his manual wheelchair. CM available for changes. Plan: Family ; PT, RN, GENERAL SUPERINTENDENT Date Signed: 02/26/2018 09:57 AM Electronically Signed By:JOYCE Colby Intervention Information
--- NOTE | 2018-03-01 09:53 | PQFORM ---
PHYSICIAN QUERY FORM Needs Your Response This query form is being sent to you to assure this patient record is coded properly. Please respond to the question below: VISUAL MERCHANDISER QUESTION: Dr Berger Documentation in the Progress Notes mentioned a Catheter Associated Urinary Tract Infection (CAUTI) but only UTI was mentioned in the Discharge Summary. Did this patient have a Catheter Associated Urinary Tract Infection ? ___ Yes ___ No ___ Other (Please Specify ) ___ Unable to Determine Thank You Quin MALLOY Automatic Shirring Machine Operator INSTRUCTIONS FOR RESPONSE: Answer question by clicking on the "Edit Document" button. Move cursor to area below the stars. When complete, hit "Save." Click on the "Sign" button, then click "Sign" again. Type in your PIN and hit "Enter." Pt did NOT have CAUTI, as he never had an indwelling urine catheter. Diagnosis is UTI as stated MTDD
== END 2018-02-26 13:05 | disposition home or self-care (01) | DRG 59 ==
LOC: EDUNIT# → F3E 19:41
PROVIDERS: ADMIT Internal Medicine; ATTEND Internal Medicine
DX: G35 Multiple sclerosis (principal); N39.0 Urinary tract infection, site not specified; N31.9 Neuromuscular dysfunction of bladder, unspecified; B96.20 Unspecified Escherichia coli [E. coli] as the cause of diseases classified elsewhere; E03.9 Hypothyroidism, unspecified; Z85.850 Personal history of malignant neoplasm of thyroid; Z23 Encounter for immunization; Z87.891 Personal history of nicotine dependence; Z86.73 Personal history of transient ischemic attack (TIA), and cerebral infarction without residual deficits; Z99.3 Dependence on wheelchair
CPT/HCPCS: 96374; 97163-GP; 97166-GO; 97530-GO; 97530-GP; 97535-GO; G0008; G8978-GP-CJ; G8979-GP-CI; G8980-GP-CI; G8987-GO-CJ; G8988-GO-CI; G8989-GO-CJ; J1650; J1956

== ENCOUNTER 2018-08-09 14:00 | Inpatient (IN) | payer OTHER, MEDICAID ==
[2018-08-09] MEDS ORDERED: NS 500 ML IV ONE (14:09)
--- NOTE | 2018-08-09 14:14 | EDPHY ---
H & P Time Seen by Provider: 08/09/18 14:03 HPI/ROS: CHIEF COMPLAINT: "Urinary tract infection" HISTORY OF PRESENT ILLNESS: Patient is a 63-year-old male with a significant history of MS and recurrent urinary tract infections who presents emergency department thinking he has a new urinary tract infection. The patient states that typically he develops back pain when he has UTI. Patient has had some increased urgency and discharge. He self caths this had no difficulty performing this procedure. The patient denies fevers or chills. No abdominal pain. No nausea or vomiting. Patient reports that he is feeling constipated inside a bowel movement for 9 days. He feels this is secondary to a recent episode of diarrhea. The patient states he has had decreased use of his hands due to his MS. He states his symptoms often worse when he has urinary tract infection. Patient is concerned he cannot take care of himself at home. REVIEW OF SYSTEMS: 10 systems were reveiwed and are negative with the exception of the elements mentioned in the history of present illness. Past Medical/Surgical History: Includes MS Smoking Status: Former smoker Physical Exam: Vitals noted GENERAL: Well-appearing, in no acute distress, alert. HEENT: Eyes normal to inspection, normal pharynx, no signs of dehydration. NECK: Normal, supple. RESPIRATORY: Mild increased work of breathing. Patient states this is baseline from MS. Clear to auscultation bilaterally, no rales, rhonchi or wheezing. CVS: Regular rate and rhythm, no rubs, murmurs, or gallops. ABDOMEN: Soft, nontender, nondistended, no organomegaly. Benign BACK: Normal to inspection, no CVA tenderness. SKIN: Normal color, no rash, warm, dry. No pallor. EXTREMITIES: Slightly contracted hands bilaterally. No pedal edema, no calf tenderness, no Homans sign or cords, no joint swelling. NEURO/PSYCH: Alert and oriented, normal mood and affect, the patient moves all extremities. He does have contracted hands as mentioned above. Constitutional: Initial Vital Signs Temperature (C) 37.3 C 08/09/18 14:04 Heart Rate 102 H 08/09/18 14:04 Respiratory Rate 16 08/09/18 14:04 Blood Pressure 92/71 L 08/09/18 14:04 O2 Sat (%) 96 08/09/18 14:04 O2 Delivery Mode Room Air Allergies/Adverse Reactions: Penicillins Allergy (Severe, Verified 08/09/18 14:04) Anaphylaxis iodine Allergy (Mild, Verified 08/09/18 14:04) Rash Home Medications: Medication Instructions Recorded Baclofen [Baclofen 10 mg (*)] 5 - 10 mg PO QID PRN 09/07/13 Oxybutynin Chloride [Ditropan] 5 - 10 mg PO HS 01/12/15 Diazepam [Valium 5 MG (*)] 2.5 - 5 mg PO HS PRN 10/21/15 Methenamine Hippurate [METHENAMINE 1 g PO DAILY@12,21 10/21/15 HIPPURATE] Dalfampridine [AMPYRA] 10 mg PO BID 02/04/18 Gabapentin [Neurontin 300 MG (*)] 300 mg PO HS 02/04/18 Levothyroxine [Synthroid 112 mcg 112 mcg PO DAILY06 02/04/18 (*)] levOFLOXACIN [levAQUIN (*)] 750 mg PO DAILY AT 10AM #7 tab 02/26/18 Medical Decision Making ED Course/Re-evaluation: I met EMS on arrival. I took report from the medics. In the emergency department I discussed possible etiologies with the patient. I answered all his questions. An IV was placed. Laboratory studies were obtained. Cath urine was obtained. The patient's [place] [address]. Chemistry panel is unremarkable. UA was positive. I discussed the results with the patient. I answered all of his questions. Patient states that during his previous urinary tract infection he received Levaquin. He stated that this improved his MS and hand movement. He requested this medication if possible. Due the patient's infection he was given Levaquin 500 mg IV. Patient states he is unable to move his hands and care for himself at home. Because of this he will be admitted. Differential Diagnosis: My differential includes but is not limited to urinary tract infection or pyelonephritis, bacteremia, sepsis, electrolyte abnormality, sugar abnormality, small-bowel obstruction, perforation, dehydration - Data Points Laboratory Results: Laboratory Results 08/09/18 14:15 08/09/18 14:15 08/09/18 08/09/18 08/09/18 14:35 14:15 14:15 WBC 15.14 10^3/uL H 10^3/uL (3.80-9.50) RBC 5.07 10^6/uL 10^6/uL (4.40-6.38) Hgb 16.7 g/dL g/dL (13.7-17.5) Hct 49.1 % % (40.0-51.0) MCV 96.8 fL fL (81.5-99.8) MCH 32.9 pg pg (27.9-34.1) MCHC 34.0 g/dL g/dL (32.4-36.7) RDW 13.2 % % (11.5-15.2) Plt Count 168 10^3/uL 10^3/uL (150-400) MPV 11.5 fL fL (8.7-11.7) Neut % (Auto) 87.1 % H % (39.3-74.2) Lymph % (Auto) 4.8 % L % (15.0-45.0) [place] % (Auto) 7.4 % % (4.5-13.0) Eos % (Auto) 0.1 % L % (0.6-7.6) Baso % (Auto) 0.1 % L % (0.3-1.7) Nucleat RBC Rel Count 0.0 % % (0.0-0.2) Absolute Neuts (auto) 13.20 10^3/uL H 10^3/uL (1.70-6.50) Absolute Lymphs (auto) 0.72 10^3/uL L 10^3/uL (1.00-3.00) Absolute Monos (auto) 1.12 10^3/uL H 10^3/uL (0.30-0.80) Absolute Eos (auto) 0.01 10^3/uL L 10^3/uL (0.03-0.40) Absolute Basos (auto) 0.02 10^3/uL 10^3/uL (0.02-0.10) Absolute Nucleated RBC 0.00 10^3/uL 10^3/uL (0-0.01) Immature Gran % 0.5 % % (0.0-1.1) Immature Gran # 0.07 10^3/uL 10^3/uL (0.00-0.10) Sodium 136 mEq/L mEq/L (135-145) Potassium 4.5 mEq/L mEq/L (3.5-5.2) Chloride 102 mEq/L mEq/L (97-110) Carbon Dioxide 24 mEq/l mEq/l (22-31) Anion Gap 10 mEq/L mEq/L (6-14) BUN 23 mg/dL mg/dL (7-23) Creatinine 0.7 mg/dL mg/dL (0.7-1.3) Estimated GFR > 60 Glucose 115 mg/dL H mg/dL (70-100) Calcium 9.1 mg/dL mg/dL (8.5-10.4) Urine Color YELLOW Urine Appearance CLEAR Urine pH 5.0 (5.0-7.5) Ur Specific [place] 1.023 (1.002-1.030) Urine Protein 1+ H (NEGATIVE) Urine Ketones TRACE H (NEGATIVE) Urine Blood 1+ H (NEGATIVE) Urine Nitrate NEGATIVE (NEGATIVE) Urine Bilirubin NEGATIVE (NEGATIVE) Urine Urobilinogen NEGATIVE EU EU (0.2-1.0) Ur Leukocyte Esterase 3+ H (NEGATIVE) Urine RBC 5-10 /hpf H /hpf (0-3) Urine WBC 50-182 /hpf H /hpf (0-3) Ur Epithelial Cells TRACE /lpf /lpf (NONE-1+) Urine Bacteria TRACE /hpf H /hpf (NONE SEEN) Urine Mucus TRACE /lpf /lpf (NONE-1+) Urine Glucose 3+ H (NEGATIVE) Medications Given: Discontinued Medications Sodium Chloride (Ns) 500 mls @ 0 mls/hr IV EDNOW ONE; Wide Open PRN Reason: Protocol Stop: 08/09/18 14:10 Last Admin: 08/09/18 14:46 Dose: 500 mls Departure - Departure Disposition: [facility] Inpatient Acute Clinical Impression: Multiple sclerosis Urinary tract infection Qualifiers: Urinary tract infection type: acute cystitis Hematuria presence: with hematuria Qualified Code(s): N30.01 - Acute cystitis with hematuria Condition: Good Referrals: Patient,NotPresent [Unknown] - As per Instructions
[2018-08-09 14:25] LABS: PLATELET COUNT 168 10^3/uL (150-400)
[2018-08-09] MEDS ORDERED: levOFLOXACIN 500 MG/DEXTROSE 100 ML IV ONE (15:14)
[2018-08-09] MEDS ORDERED: BACLOFEN 10 MG TAB PO ONE (15:49)
[2018-08-09] MEDS ORDERED: ONDANSETRON DISINTEGRATING 4 MG TAB PO PRN (16:08)
[2018-08-09] MEDS ORDERED: POLYETHYLENE GLYCOL 3350 17 GM PKT PO PRN (16:12)
[2018-08-09] MEDS ORDERED: LACTULOSE 20 GM/30 ML UDCUP PO PRN (16:12)
[2018-08-09] MEDS ORDERED: MAGNESIUM HYDROXIDE 30 ML UDCUP PO PRN (16:12)
[2018-08-09] MEDS ORDERED: BISACODYL 10 MG SUPP PR PRN (16:12)
--- NOTE | 2018-08-09 16:33 | PDGENHP ---
History and Physical - Chief Complaint Urinary tract infection - History of Present Illness HPI: 63 y/o male with multiple sclerosis and multiple reoccurring urinary tract infections presents via ambulance believing he has another UTI. He self-caths 4x a day and yesterday evening, he had severe back pain, urinary urgency, and difficulty using his hands that are now contracted which is typically how he presents when he has a UTI. He is unable to care for himself at home in this condition, he lives alone. Endorses abdominal discomfort to LUQ/LLQ, has not had a bowel movement in 9 days however is not nauseous and no vomiting. He denies chest pain, palpitations, SOB, fevers, chills. UA is positive for urinary tract infection and was treated with requested Levaquin in the ED. In February 2018, urine culture came back E-Coli and was treated with Levaquin to which within 6 hours, he gained close to full functioning of his hands hence his request to continue Levaquin this time around. He is being admitted for treatment and monitoring. History Information - Allergies/Home Medication List Allergies/Adverse Reactions: Penicillins Allergy (Severe, Verified 08/09/18 14:04) Anaphylaxis iodine Allergy (Mild, Verified 08/09/18 14:04) Rash Home Medications: Aspirin EC [Aspirin EC 81 mg (*)] 81 mg PO HS 08/09/18 [Last Taken 08/08/18] Baclofen [Baclofen 10 mg (*)] 10 mg PO QID 08/09/18 [Last Taken 08/08/18] Cholecalciferol Vit D3 [Vitamin D3 2000 units tab (OTC)] 2,000 units PO DAILY [Last Taken 08/08/18] DULoxetine [Cymbalta 60 MG (*)] 60 mg PO DAILY 08/09/18 [Last Taken 08/08/18] Diazepam 2.5 mg PO EVERY OTHER DAY 08/09/18 [Last Taken 08/07/18] Diazepam [Valium 5 MG (*)] 5 mg PO EVERY OTHER DAY 08/09/18 [Last Taken 08/08/18 ] Gabapentin [Neurontin 300 MG (*)] 600 mg PO HS 08/09/18 [Last Taken 08/08/18] Levothyroxine [Synthroid 100 mcg (*)] 100 mcg PO DAILY06 08/09/18 [Last Taken ] Methenamine Ines [Hiprex 1 gm (*)] 1 gm PO BID@12,21 08/09/18 [Last Taken ] Oxybutynin Chloride 5 mg PO HS 08/09/18 [Last Taken 08/08/18] Potassium Chloride [Klor-Con M10] 10 meq PO DAILY@1700 08/09/18 [Last Taken 11/21] I have personally reviewed and updated: family history, medical history, social history, surgical history - Past Medical History Additional medical history: MS with bilateral lower extremity paresis at baseline, wheelchair-bound. Thyroid CA. Hypothyroid. TIA. Recurrent urinary tract infections including Klebsiella, Enterococcus, Morganella, E coli exclusively over the past 2 years - Surgical History Additional surgical history: Thyroid surgery with lymph node removal. 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 Has 2 motorized wheelchairs to transfer. Review of Systems Review of Systems: ROS: 10pt was reviewed & negative except for what was stated in HPI & below Physical Exam Physical Exam: Lab data and imaging were reviewed. Case discussed with admitting physician, Dr. Giuseppe Green. WBC: 15.14 Temp Pulse Resp BP Pulse Ox 37.3 C 102 H 16 92/71 L 96 08/09/18 14:04 08/09/18 14:04 08/09/18 14:04 08/09/18 14:04 08/09/18 14:04 Constitutional: chronically ill appearing, uncomfortable, other (Calm cooperative male pt experiencing frequent muscle spasms.) Eyes: PERRL, anicteric sclera, EOMI Ears, Nose, Mouth, Throat: hearing normal, ears appear normal, no oral mucosal ulcers, dry mucous membranes Cardiovascular: regular rate and rhythym, no murmur, rub, or gallop, tachycardia , No edema Peripheral Pulses: 2+: dorsalis-pedis (R) (Radial 2+), dorsalis-pedis (L) ( Radial 2+) Respiratory: no respiratory distress, no rales or rhonchi, clear to auscultation Gastrointestinal: no palpable masses, tenderness (LUQ/LLQ), other (Hypoactive BS ) Genitourinary: no bladder fullness, no bladder tenderness Skin: warm, normal color, no rashes or abrasions, no fluctuance, no induration, No mottled Musculoskeletal: generalized weakness, other (Contracted hands) Neurologic: AAOx3, sensation intact bilaterally, weakness (Chronic) Psychiatric: interacting appropriately, not anxious, not encephalopathic, thought process linear Lymph, Heme, Immunologic: no cervical LAD, no supraclavicular LAD Lab Data & Imaging Review 08/09/18 14:15 08/09/18 14:15 WBC 15.14 10^3/uL (3.80-9.50) H 08/09/18 14:15 RBC 5.07 10^6/uL (4.40-6.38) 08/09/18 14:15 Hgb 16.7 g/dL (13.7-17.5) 08/09/18 14:15 Hct 49.1 % (40.0-51.0) 08/09/18 14:15 MCV 96.8 fL (81.5-99.8) 08/09/18 14:15 MCH 32.9 pg (27.9-34.1) 08/09/18 14:15 MCHC 34.0 g/dL (32.4-36.7) 08/09/18 14:15 RDW 13.2 % (11.5-15.2) 08/09/18 14:15 Plt Count 168 10^3/uL (150-400) 08/09/18 14:15 MPV 11.5 fL (8.7-11.7) 08/09/18 14:15 Neut % (Auto) 87.1 % (39.3-74.2) H 08/09/18 14:15 Lymph % (Auto) 4.8 % (15.0-45.0) L 08/09/18 14:15 [place] % (Auto) 7.4 % (4.5-13.0) 08/09/18 14:15 Eos % (Auto) 0.1 % (0.6-7.6) L 08/09/18 14:15 Baso % (Auto) 0.1 % (0.3-1.7) L 08/09/18 14:15 Nucleat RBC Rel Count 0.0 % (0.0-0.2) 08/09/18 14:15 Absolute Neuts (auto) 13.20 10^3/uL (1.70-6.50) H 08/09/18 14:15 Absolute Lymphs (auto) 0.72 10^3/uL (1.00-3.00) L 08/09/18 14:15 Absolute Monos (auto) 1.12 10^3/uL (0.30-0.80) H 08/09/18 14:15 Absolute Eos (auto) 0.01 10^3/uL (0.03-0.40) L 08/09/18 14:15 Absolute Basos (auto) 0.02 10^3/uL (0.02-0.10) 08/09/18 14:15 Absolute Nucleated RBC 0.00 10^3/uL (0-0.01) 08/09/18 14:15 Immature Gran % 0.5 % (0.0-1.1) 08/09/18 14:15 Immature Gran # 0.07 10^3/uL (0.00-0.10) 08/09/18 14:15 Sodium 136 mEq/L (135-145) 08/09/18 14:15 Potassium 4.5 mEq/L (3.5-5.2) 08/09/18 14:15 Chloride 102 mEq/L (97-110) 08/09/18 14:15 Carbon Dioxide 24 mEq/l (22-31) 08/09/18 14:15 Anion Gap 10 mEq/L (6-14) 08/09/18 14:15 BUN 23 mg/dL (7-23) 08/09/18 14:15 Creatinine 0.7 mg/dL (0.7-1.3) 08/09/18 14:15 Estimated GFR > 60 08/09/18 14:15 Glucose 115 mg/dL (70-100) H 08/09/18 14:15 Calcium 9.1 mg/dL (8.5-10.4) 08/09/18 14:15 Urine Color YELLOW 08/09/18 14:35 Urine Appearance CLEAR 08/09/18 14:35 Urine pH 5.0 (5.0-7.5) 08/09/18 14:35 Ur Specific [place] 1.023 (1.002-1.030) 08/09/18 14:35 Urine Protein 1+ (NEGATIVE) H 08/09/18 14:35 Urine Ketones TRACE (NEGATIVE) H 08/09/18 14:35 Urine Blood 1+ (NEGATIVE) H 08/09/18 14:35 Urine Nitrate NEGATIVE (NEGATIVE) 08/09/18 14:35 Urine Bilirubin NEGATIVE (NEGATIVE) 08/09/18 14:35 Urine Urobilinogen NEGATIVE EU (0.2-1.0) 08/09/18 14:35 Ur Leukocyte Esterase 3+ (NEGATIVE) H 08/09/18 14:35 Urine RBC 5-10 /hpf (0-3) H 08/09/18 14:35 Urine WBC 50-182 /hpf (0-3) H 08/09/18 14:35 Ur Epithelial Cells TRACE /lpf (NONE-1+) 08/09/18 14:35 Urine Bacteria TRACE /hpf (NONE SEEN) H 08/09/18 14:35 Urine Mucus TRACE /lpf (NONE-1+) 08/09/18 14:35 Urine Glucose 3+ (NEGATIVE) H 08/09/18 14:35 Assessment & Plan Plan: 63 y/o male with multiple sclerosis who self-caths presents w/ reoccurring urinary tract infection. 1. Urinary tract infection: Reoccurring infections including Klebsiella, Enterococcus, Morganella, E-coli (last one in Feb 2018) over the last 2 years. I questioned the possible causes of reoccurrence - in , he believes it is d/t sexual encounters and not properly cleaning himself before self- cathing. Most times, he tries to remain clean by washing his hands and ensuring the catheter does not fall onto his legs however when his muscle spasms act up and he feels like he is sinking into the toilet because of his weight loss and lacks muscle strength, he says "screw it," and will continue to cath himself regardless if it is a clean approach or not. -Received Levaquin in ED per pt request considering he received it last UTI and noticed close to full improvement in his contracted hands with strength and mobility. Prior urine culture was E-Coli and sensitive to Levaquin. Will continue Levaquin IV and evaluate once current urine culture results. -Pt will need RN assistance with straight cathing d/t his lack of use of hands. He caths 4x a day. His home catheters are much smaller compared to our catheters and he requested an indwelling catheter in place of straight cathing here. Educated pt d/t current infection, it is not the best choice however if straight cathing becomes uncomfortable, we would consider indwelling. -Lidoderm patch for back pain associated w/UTI 2. SIRS: Leukocytosis (15.14), tachycardic (102) and hypotensive (92/71). -Received 1/2 NS bolus in ED; will continue IVF x 2 bags -Blood cultures and lactic acid pending -CBC in AM 3. Constipation: He reports ongoing GI issues since April 2018. He has bouts of loose stools, no hematochezia. It has now been 9 days since his last bowel movements, c/o LUQ/LLQ abdominal discomfort. He does have flatulence. He wanted to see a GI doctor but it would take 2 months before he is able to see one; he saw his PCP who recommended the BRAT diet. Since beginning the BRAT diet, he endorses moderate improvement to his bowels, including eliminating coffee and chocolate. Suspected IBS. -Obtaining a KUB to r/o bowel obstruction -Bowel regimen -If he does have a loose stool, consider GI pathogen panel 4. Weight loss: Per pt, loss 10 lbs in one month d/t above GI issues. Encourage food and fluid intake. 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 -Dietary consult 5. Multiple Sclerosis w/ BLE paresis @ baseline: He was diagnosed in 1990. He uses wheelchairs to transfer. Has muscle spasms. -PT/OT to evaluate and treat -On baclofen, valium, gabapentin 6. Hypothyroidism: on levothyroxine Diet: Regular VTE ppx: Lovenox subq Code: Full Dispo: Admit to obs
--- NOTE | 2018-08-09 17:16 | HOSPPROG ---
Hospitalist Progress Note Assessment/Plan: I have personally seen and assessed Mr. Soriano. I agree with the assessment and plan as outlined in JUNIOR ACCOUNTING CLERK, Gayle Barnhart's, separate documentation. Objective: Vital Signs Temp Pulse Resp BP Pulse Ox 36.9 C 93 16 119/65 96 08/09/18 17:01 08/09/18 17:01 08/09/18 17:01 08/09/18 17:01 08/09/18 17:01 ICD10 Worksheet Patient Problems: Problems Problem Status Onset Multiple sclerosis Acute UTI (urinary tract infection) Acute Acute pyelonephritis Acute Blurred vision Acute Dehydration Acute Fever Acute Generalized weakness Acute Multiple sclerosis exacerbation Acute Spasms of the hands or feet Acute TIA (transient ischemic attack) Acute
[2018-08-09] MEDS: NS 1,000 ML IV SCH (18:32)
[2018-08-09] MEDS: LIDOCAINE 4%/MENTHOL 1% PATCH TD SCH (20:13)
[2018-08-09] MEDS: GABAPENTIN 300 MG CAP PO SCH (23:32)
[2018-08-09] MEDS: DIAZEPAM 5 MG TAB PO SCH (23:33)
[2018-08-09] MEDS: ASPIRIN EC 81 MG TAB PO SCH (23:34)
[2018-08-09] MEDS: OXYBUTYNIN CHLORIDE 5 MG TAB PO SCH (23:35)
[2018-08-09] MEDS: SENNOSIDES/DOCUSATE SODIUM TAB PO SCH (23:35)
[2018-08-09] MEDS: BACLOFEN 10 MG TAB PO SCH (23:35)
[2018-08-09] MEDS ORDERED: DIAZEPAM 5 MG TAB PO ONE (23:44)
[2018-08-10] MEDS: PATCH REMOVAL 1 EA PATCH TD SCH ×2 (01:45→22:06)
[2018-08-10] MEDS: ACETAMINOPHEN 325 MG TAB PO PRN ×2 (04:26→19:36)
[2018-08-10] MEDS: NS 1,000 ML IV SCH (04:26)
[2018-08-10 05:11] LABS: PLATELET COUNT 148 10^3/uL (150-400)
[2018-08-10] MEDS: LEVOTHYROXINE 100 MCG TAB PO SCH (06:05)
[2018-08-10] MEDS: BACLOFEN 10 MG TAB PO SCH ×4 (06:05→21:52)
[2018-08-10] MEDS: ENOXAPARIN 40 MG/0.4 ML SYR SC SCH (08:31)
[2018-08-10] MEDS: LIDOCAINE 4%/MENTHOL 1% PATCH TD SCH (08:31)
[2018-08-10] MEDS: DIAZEPAM 5 MG TAB PO SCH ×4 (08:32→21:52)
[2018-08-10] MEDS: CHOLECALCIFEROL VIT D3 2,000 UNITS TAB/CAP PO SCH (08:32)
[2018-08-10] MEDS: DULoxetine 60 MG CAP PO SCH (08:32)
[2018-08-10] MEDS: SENNOSIDES/DOCUSATE SODIUM TAB PO SCH (08:33)
[2018-08-10] MEDS ORDERED: SENNOSIDES/DOCUSATE SODIUM TAB PO PRN (13:12)
--- NOTE | 2018-08-10 13:30 | HOSPPROG ---
Hospitalist Progress Note Assessment/Plan: 63yo M with MS and recurrent UTI here with UTI in setting of self-cathing without aseptic technique #UTI: H/o E coli, Enterococcus, Klebsiella, Morganella infections in past ( resistant to unasyn and cefazolin but o/w sensitive) - Continue levofloxacin (pt refusing ceftriaxone) but will switch to PO, f/u urine culture #Neurogenic bladder: - Ryan now placed. Consider suprapubic cath placement at some time in future #Sepsis: Present on admission w/leukocytosis, tachycardia and urinary source. Improving - Blood cultures pending #Hypotension: Chronic for him. Lactate normal. - Continue IVF for now, likely stop tomorrow #Diarrhea: Reportedly alternating with constipation - Check GI PCR #Bilateral arm/hand weakness: Suspect pseudo-MS flare in setting of infection. Improving #MS: BLE paresis at baseline, wheelchairs for transfer - PT/OT, patient refusing SNF if this is recommended #Hypothyroidism: Continue LT4 replacement Diet: Regular VTE ppx: LMWH Code: Full Dispo: Switch to inpatient, unsafe for dc home Subjective: No fevers. Ryan placed. Some improvement in hand/arm weakness since starting IV antibiotics. Having several bouts of diarrhea. Objective: Vital Signs Temp Pulse Resp BP Pulse Ox 37.1 C 105 H 12 80/61 L 92 08/10/18 11:44 08/10/18 11:44 08/10/18 11:44 08/10/18 11:44 08/10/18 11:44 Laboratory Results 08/10/18 04:18 08/10/18 04:18 08/09/18 08/10/18 08/11/18 05:59 05:59 05:59 Intake Total 1263 Output Total 1225 Balance 38 - Physical Exam Constitutional: no apparent distress, chronically ill appearing Eyes: PERRL, anicteric sclera, EOMI Ears, Nose, Mouth, Throat: moist mucous membranes, hearing normal, ears appear normal, no oral mucosal ulcers Cardiovascular: regular rate and rhythym, no murmur, rub, or gallop Respiratory: no respiratory distress, no rales or rhonchi, clear to auscultation Gastrointestinal: normoactive bowel sounds, soft, non-tender abdomen, no palpable masses Genitourinary: ryan in urethra Skin: no rashes or abrasions, no fluctuance, no induration Musculoskeletal: other (paresis of BLE, weakness in BUE) Neurologic: AAOx3 Psychiatric: interacting appropriately ICD10 Worksheet Patient Problems: Problems Problem Status Onset Multiple sclerosis Acute UTI (urinary tract infection) Acute Acute pyelonephritis Acute Blurred vision Acute Dehydration Acute Fever Acute Generalized weakness Acute Multiple sclerosis exacerbation Acute Spasms of the hands or feet Acute TIA (transient ischemic attack) Acute
--- NOTE | 2018-08-10 16:03 | ASMTCMCOM ---
CM Note CM Note Notes: Met with Pt. Pt is a 63yr old w/ MS and lower leg Paresis admitted with reoccurring UTI's. He has had difficult with self cath due to his arms and hand not working well. Pt is in an electric w/c & lives alone. He's had issues with constipation. Pt's uses [facility] but he is not happy with them. 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 He is interested in trying [facility] in [place]. OT & PT to evaluate. Pt is NOT interested in going to a SNF, he feels he can get along better at home w/ HHC. CM Available for needs. Plan: TBD Date Signed: 08/10/2018 04:00 PM Electronically Signed By:Hilda Yang
[2018-08-10] MEDS: POTASSIUM CL 10 MEQ TAB PO SCH (16:12)
--- NOTE | 2018-08-10 16:14 | WOCRNPDOC ---
WOCRN Advanced Assessment Note - Skin Integrity Problem, Advanced Assess Coccyx Dressing Type: Mepilex (sacral) Integumentary Issue Intervention: Dressing Removed Theodora Wound Tissue: Blanching, Non-blanching, Intact Wound Bed Color: [place] Site Measurement - Head-to-Toe Length X Width X Depth (cm): 3.8x3.2xintact Pressure Injury Stage: Stage 1 Pressure Injury Present on Admit: Yes Skin Integrity Problem Comment: Patient rolled to his right side with assist from SARAHY Valdez. Mepilex sacral dressing pulled back. Skin to coccyx is pink and sluggishly blanching along the left margin but non-blanching along the right. During my assessment, patient incontinent of a large volume of liquid stool. Mepilex sacral dressing removed as it would be better for the skin to remain APPEALS NURSE and cleaned PRN stooling than to trap stool against the skin under a dressing. Once patient's incontinence resolves, a protective dressing would be great. Wound care will not continue to round. Please reconsult PRN.
--- NOTE | 2018-08-10 17:32 | PDMN ---
Medical Necessity Medical necessity: MCG 63 yo w/ recurring UTI in setting of MS. Pt does self caths at home. Meets SIRS criteria on admit w/ leukocytosis, tachy HR 102 and hypotensive. Admit to OBS initially for workup and tx but pt requires additional MN meeting [facility] IP criteria for recurrent UTIs w/ hemodynamic instability after OBS care - still requiring IVF for hypotension and tachycardia. Urine cx came back + for Klebsiella Pneumoniae. MS w/ BLE paresis , wheelchair bound, thyroid ca, hypothyroid, TIA, recurrent UTI including Klebsiella, Enerococcus, Morganella, E coli over past 2 years. Change to IP status 08/10/18@1551 per MD order.
[2018-08-10] MEDS ORDERED: LOPERAMIDE HCL 2 MG CAP PO PRN (19:53)
[2018-08-10] MEDS: OXYBUTYNIN CHLORIDE 5 MG TAB PO SCH (21:52)
[2018-08-10] MEDS: GABAPENTIN 300 MG CAP PO SCH (21:52)
[2018-08-10] MEDS: ASPIRIN EC 81 MG TAB PO SCH (21:53)
[2018-08-11] MEDS: LEVOTHYROXINE 100 MCG TAB PO SCH (04:15)
[2018-08-11] MEDS: BACLOFEN 10 MG TAB PO SCH ×4 (04:16→21:49)
[2018-08-11] MEDS: LIDOCAINE 4%/MENTHOL 1% PATCH TD SCH (08:30)
[2018-08-11] MEDS: ENOXAPARIN 40 MG/0.4 ML SYR SC SCH (08:30)
[2018-08-11] MEDS: CHOLECALCIFEROL VIT D3 2,000 UNITS TAB/CAP PO SCH (08:31)
[2018-08-11] MEDS: DULoxetine 60 MG CAP PO SCH (08:31)
--- NOTE | 2018-08-11 11:59 | HOSPPROG ---
Hospitalist Progress Note Assessment/Plan: 63yo M with MS and recurrent UTI here with UTI in setting of self-cathing without aseptic technique #Klebsiella CAUTI: Present on admission. Pansensitive except for ampicillin. - Switch levaquin to keflex 500mg TID, day 3/7 #Neurogenic bladder - Ryan in place, remove once use of hands/arms improves so he can straight cath #Sepsis: Physiology resolved. BCx ngtd. #Hypotension: Chronic for him. Lactate normal. - Stopped IVF #Diarrhea: GI PCR negative - Loperamide PRN #Bilateral arm/hand weakness: Suspect pseudo-MS flare in setting of infection. Improving #MS: BLE paresis at baseline, wheelchairs for transfer - PT/OT, patient refusing SNF if this is recommended #Hypothyroidism: Continue LT4 replacement Diet: Regular VTE ppx: LMWH Code: Full Dispo: Remain inpatient, unsafe for dc home Subjective: Feeling good. Diarrhea stopped after imodium. No n/v. Eating well. Objective: Vital Signs Temp Pulse Resp BP Pulse Ox 36.7 C 100 16 103/75 94 08/11/18 07:59 08/11/18 07:59 08/11/18 07:59 08/11/18 07:59 08/11/18 07:59 Laboratory Results 08/11/18 04:28 08/11/18 04:28 08/10/18 08/11/18 08/12/18 05:59 05:59 06:59 Intake Total 400 Output Total 1075 Balance -675 - Physical Exam Constitutional: no apparent distress, appears nourished, not in pain Eyes: PERRL, anicteric sclera, EOMI Ears, Nose, Mouth, Throat: moist mucous membranes, hearing normal, ears appear normal, no oral mucosal ulcers Cardiovascular: regular rate and rhythym, no murmur, rub, or gallop Respiratory: no respiratory distress, no rales or rhonchi, clear to auscultation Gastrointestinal: normoactive bowel sounds, soft, non-tender abdomen, no palpable masses Genitourinary: ryan in urethra Skin: warm Musculoskeletal: other (BLE paresis, improving BUE strength) Neurologic: AAOx3 Psychiatric: interacting appropriately ICD10 Worksheet Patient Problems: Problems Problem Status Onset Multiple sclerosis Acute UTI (urinary tract infection) Acute Acute pyelonephritis Acute Blurred vision Acute Dehydration Acute Fever Acute Generalized weakness Acute Multiple sclerosis exacerbation Acute Spasms of the hands or feet Acute TIA (transient ischemic attack) Acute
[2018-08-11] MEDS: POTASSIUM CL 10 MEQ TAB PO SCH (16:20)
[2018-08-11] MEDS: ACETAMINOPHEN 325 MG TAB PO PRN ×2 (16:21→21:49)
[2018-08-11] MEDS: GABAPENTIN 300 MG CAP PO SCH (21:49)
[2018-08-11] MEDS: OXYBUTYNIN CHLORIDE 5 MG TAB PO SCH (21:49)
[2018-08-11] MEDS: ASPIRIN EC 81 MG TAB PO SCH (21:49)
[2018-08-11] MEDS: PATCH REMOVAL 1 EA PATCH TD SCH (21:50)
[2018-08-11] MEDS ORDERED: DIAZEPAM 5 MG TAB PO SCH (23:59)
[2018-08-12] MEDS: BACLOFEN 10 MG TAB PO SCH ×4 (05:33→20:58)
[2018-08-12] MEDS: LEVOTHYROXINE 100 MCG TAB PO SCH (05:34)
[2018-08-12] MEDS: LIDOCAINE 4%/MENTHOL 1% PATCH TD SCH (08:37)
[2018-08-12] MEDS: ENOXAPARIN 40 MG/0.4 ML SYR SC SCH (08:37)
[2018-08-12] MEDS: CEPHALEXIN 500 MG CAP PO SCH ×3 (08:39→20:58)
[2018-08-12] MEDS: CHOLECALCIFEROL VIT D3 2,000 UNITS TAB/CAP PO SCH (08:39)
[2018-08-12] MEDS: DULoxetine 60 MG CAP PO SCH (08:39)
--- NOTE | 2018-08-12 13:05 | ASMTCMCOM ---
CM Note CM Note Notes: Patient refusing SNF adamant to return home at this time. He wants to change his [employer] company. He needs a friend to bring in his wheelchair. He will need to continue oral antibiotics. CM available should other needs arise. Plan: Dc with [facility]. Date Signed: 08/12/2018 01:05 PM Electronically Signed By:Abbey Stubbs RN
--- NOTE | 2018-08-12 13:18 | HOSPPROG ---
Hospitalist Progress Note Assessment/Plan: 63yo M with MS and recurrent UTI here with UTI in setting of self-cathing without aseptic technique #Klebsiella CAUTI: Present on admission. Pansensitive except for ampicillin. - Continue keflex 500mg TID, day 4/7 #Neurogenic bladder - Ryan in place, remove once use of hands/arms improves so he can straight cath #Sepsis: Physiology resolved. BCx ngtd. #Hypotension: Chronic for him. Lactate normal. Stopped IVF. #Diarrhea: GI PCR negative - Loperamide PRN #Bilateral arm/hand weakness: Suspect pseudo-MS flare in setting of infection. Improving #MS: BLE paresis at baseline, wheelchairs for transfer - PT/OT, patient refusing SNF. #Hypothyroidism: Continue LT4 replacement Diet: Regular VTE ppx: LMWH Code: Full Dispo: Remain inpatient, unsafe for dc home and refusing snf. Hopeful to dc in next day or so. Subjective: Had fever yesterday evening, hemodynamics stable. No new symptoms. Wanting to go home. Couldn't transfer with PT. Objective: Vital Signs Temp Pulse Resp BP Pulse Ox 36.5 C 83 16 95/58 L 94 08/12/18 07:42 08/12/18 07:42 08/12/18 07:42 08/12/18 07:42 08/12/18 07:42 Laboratory Results 08/12/18 10:14 08/11/18 04:28 08/11/18 08/12/18 08/13/18 04:59 05:59 05:59 Intake Total Output Total Balance - Physical Exam Constitutional: no apparent distress, appears nourished, not in pain Eyes: PERRL, anicteric sclera, EOMI Ears, Nose, Mouth, Throat: moist mucous membranes, hearing normal, ears appear normal, no oral mucosal ulcers Cardiovascular: regular rate and rhythym, no murmur, rub, or gallop Respiratory: no respiratory distress, no rales or rhonchi, clear to auscultation Gastrointestinal: normoactive bowel sounds, soft, non-tender abdomen, no palpable masses Genitourinary: ryan in urethra Skin: no rashes or abrasions, no fluctuance, no induration Musculoskeletal: other (BLE paresis, BUE weakness improving) Neurologic: AAOx3 Psychiatric: interacting appropriately ICD10 Worksheet Patient Problems: Problems Problem Status Onset Multiple sclerosis Acute UTI (urinary tract infection) Acute Acute pyelonephritis Acute Blurred vision Acute Dehydration Acute Fever Acute Generalized weakness Acute Multiple sclerosis exacerbation Acute Spasms of the hands or feet Acute TIA (transient ischemic attack) Acute
[2018-08-12] MEDS: POTASSIUM CL 10 MEQ TAB PO SCH (17:37)
[2018-08-12] MEDS: ONDANSETRON 4 MG/2 ML VIAL IVP PRN (19:27)
[2018-08-12] MEDS: ASPIRIN EC 81 MG TAB PO SCH (20:58)
[2018-08-12] MEDS: DIAZEPAM 5 MG TAB PO SCH (20:58)
[2018-08-12] MEDS: GABAPENTIN 300 MG CAP PO SCH (20:58)
[2018-08-12] MEDS: OXYBUTYNIN CHLORIDE 5 MG TAB PO SCH (20:58)
[2018-08-12] MEDS: PATCH REMOVAL 1 EA PATCH TD SCH (20:59)
[2018-08-13] MEDS: CEPHALEXIN 500 MG CAP PO SCH ×2 (02:02→08:56)
[2018-08-13] MEDS: ONDANSETRON 4 MG/2 ML VIAL IVP PRN (03:24)
[2018-08-13] MEDS: ACETAMINOPHEN 325 MG TAB PO PRN ×2 (03:24→09:12)
[2018-08-13] MEDS: LEVOTHYROXINE 100 MCG TAB PO SCH (06:01)
[2018-08-13] MEDS: BACLOFEN 10 MG TAB PO SCH ×2 (06:01→12:16)
[2018-08-13 08:12] VITALS: BP 103/72
[2018-08-13] MEDS: CHOLECALCIFEROL VIT D3 2,000 UNITS TAB/CAP PO SCH (08:56)
[2018-08-13] MEDS: DULoxetine 60 MG CAP PO SCH (08:56)
[2018-08-13] MEDS: ENOXAPARIN 40 MG/0.4 ML SYR SC SCH (08:56)
[2018-08-13] MEDS: LIDOCAINE 4%/MENTHOL 1% PATCH TD SCH (08:57)
--- NOTE | 2018-08-13 13:07 | PDDCSUM ---
Discharge Summary Discharge Summary: Date of Admission: 08/09/2018 Date of Discharge: 08/13/2018 Studies: abdominal x-ray Discharge Diagnoses: 1. Klebsiella CAUTI, present on admission 2. Sepsis, resolved 3. Chronic neurogenic bladder (self caths) 4. Bilateral arm/hand weakness 2/2 pseudo-MS flare, resolving 5. Diarrhea, resolved 6. Multiple sclerosis (wheelchair bound) 7. Hypothyroidism Brief Hospital Course: 63yo M with MS complicated by neurogenic bladder and recurrent UTI here with UTI in setting of self-cathing without aseptic technique at home. He was meeting sepsis criteria on admission. He had bilateral arm and hand weakness related to a pseudo-MS flare in setting of infection. A ryan catheter was placed as he was unable to self-cath. He was started on IV levofloxacin. Urine culture returned + for Klebsiella pneumoniae that was pansensitive except for ampicillin. He was switched to PO keflex to complete a course of this. His sepsis physiology resolved and function in his arms and hands returned. Ryan was removed prior to discharge. He also briefly had some diarrhea; GI PCR was negative and this resolved with loperamide. Lastly, PT and OT were recommending SNF. Patient adamantly refused. He was set up with a new home health care agency (he disliked his previous one). Medications: Please refer to EMR for complete list. I sent prescriptions for the following to his pharmacy 1. Cephalexin 500mg QID #11 with 0 refills 2. Loperamide PRN Follow Up Plan: 1. PCP visit in 1 week Physical Exam: Vitals reviewed, afebrile for >24 hours. Alert and oriented, chronic BLE paresis, improving BUE weakness, rrr, lungs clear, abdomen soft, ryan catheter out.
--- NOTE | 2018-08-13 13:15 | PDIAF ---
- Diagnosis Code Status: Full Code - Medication Management Discharge Medications: electronically signed and located in the Home Medication List. PICC Care - Routine: N/A - Orders Services needed: Home Care, Registered Nurse, Certified Associate Account Director, Physical Therapy, Occupational Therapy Home Care Face to Face: I certify that this patient was under my care and that I had the required [id number] encounter meeting the encounter requirements on the discharge day. My findings support the fact that the patient is homebound as defined in Home Care Face to Face Continued: CMS Chapter 7 Medicare Benefits Manual 30.1.1 , The condition of the patient is such that there exists a normal inability to leave home and consequently, leaving home would require a considerable and taxing effort. Isolation Type: None Diet Recommendation: no restrictions on diet Diet Texture: Regular Texture Diet Warner: Yes (He straight catheterizes on his own.) Additional Instructions: I sent prescriptions for the following to your pharmacy: 1. Keflex. You should take this 4 times daily (every 6 hours) for 15 more doses. 2. Loperamide (imodium). This is to help with diarrhea. Take as needed. Otherwise no medication changes. We are setting you up with a new home health care agency. - Follow Up Care Current Providers and Referrals: Patient,NotPresent [Unknown] - As per Instructions
--- NOTE | 2018-08-13 14:08 | ASMTLACE ---
LACE Length of stay for Answers: 3 days current admission Acuity / Level of Answers: Yes Care: Did the patient have an inpatient admission? Comorbidities - select Answers: Cerebrovascular disease all that apply (CVA, TIA, aneurysms, vasc ular dementia) Opioid dependence / Chronic pain Other Notes: MS; Hypothyroid # of Emergency department Answers: 3-4 visits in the last 6 months Score: 15 Date Signed: 08/13/2018 02:07 PM Electronically Signed By:Sharlene Majano RN
--- NOTE | 2018-08-13 14:08 | ASMTCMCOM ---
CM Note CM Note Notes: Spoke to [facility], they do not provide non-medical care. Patient currently receives medical and non-medical services through [facility]. After further discussion with both [facility] and [facility], the plan will be to discharge home with [facility] RN/PT/PT/DYE RANGE TENDER and have [facility] still see for non-medical services, ie: Housekeeping. Patient is in agreement with this plan. Tomás with [facility] aware patient is discharging, also alerted Tio with [facility], all orders sent via [facility]. [facility] transport scheduled for 15:30 today, will bill Medicaid, no PCS required. Discussed with RN. Patient's meds to be filled at [facility] before leaving hospital. Plan: [facility] Non-Medicaid (HCBS) and [facility] Medical, RN/PT/OT/DYE RANGE TENDER . Date Signed: 08/13/2018 02:07 PM Electronically Signed By:Sharlene Majano RN
--- NOTE | 2018-08-14 12:59 | ASDISCHSUM ---
Discharge Information Plan Status:Home with Home Health Medically Cleared to Leave: Discharge Date:08/13/2018 03:16 PM CM D/C Disposition:Home Health Service ADT D/C Disposition:[id number] Projected Discharge Date:08/13/2018 11:00 AM Transportation at D/C:ALS/BLS Discharge Delay Reason: Follow-Up Date:08/13/2018 11:00 AM Discharge Slot: Final Diagnosis: Placement Information Referral Type:*Home Health Care Services Referral ID:[id number] Provider Name:[facility] Address 1:[address] Address 2: City:[place] Selection Factors: State:[place] Patient Contact Information Contact Name:CARLOS Relationship:Friend Address: Work Phone: City: [facility] [place] Phone: State/Zip Code: Email: Financial Information Financial Class:Medicare Advantage Plans Primary Plan Desc:[facility] [employer] Primary Plan Number:[id number] Secondary Plan Desc:[employer] Secondary Plan Number:[id number] Assessment Information LACE LACE Length of stay for Answers: 3 days current admission Acuity / Level of Answers: Yes Care: Did the patient have an inpatient admission? Comorbidities - select Answers: Cerebrovascular disease all that apply (CVA, TIA, aneurysms, vasc ular dementia) Opioid dependence / Chronic pain Other Notes: MS; Hypothyroid # of Emergency department Answers: 3-4 visits in the last 6 months Score: 15 Date Signed: 08/13/2018 02:07 PM Electronically Signed By:Sharlene Majano RN [facility] CM Progress Note CM Note CM Note Notes: Met with Pt. Pt is a 63yr old w/ MS and lower leg Paresis admitted with reoccurring UTI's. He has had difficult with self cath due to his arms and hand not working well. Pt is in an electric w/c & lives alone. He's had issues with constipation. Pt's uses [facility] but he is not happy with them. He has a [employer] CREDIT on Mon/Mon/Mon. He is interested in trying [facility] in [place]. OT & PT to evaluate. Pt is NOT interested in going to a SNF, he feels he can get along better at home w/ [facility]. CM Available for needs. Plan: TBD Date Signed: 08/10/2018 04:00 PM Electronically Signed By:Hilda Yang [facility] CM Progress Note CM Note CM Note Notes: Patient refusing SNF adamant to return home at this time. He wants to change his [facility] company. He needs a friend to bring in his wheelchair. He will need to continue oral antibiotics. CM available should other needs arise. Plan: Dc with [facility]. Date Signed: 08/12/2018 01:05 PM Electronically Signed By:Abbey Stubbs RN [facility] CM Progress Note CM Note CM Note Notes: Spoke to [facility], they do not provide non-medical care. Patient currently receives medical and non-medical services through [facility] After further discussion with both [facility] and [facility], the plan will be to discharge home with [facility] RN/PT/PT/CASH[facility] CREDIT and have [facility] still see for non-medical services, ie: Housekeeping. Patient is in agreement with this plan. Tomás with [facility] aware patient is discharging, also alerted Tio with [facility], [facility] scheduled for 15:30 today, will bill Medicaid, no PCS required. Discussed with RN. Patient's med[facility] to [facility] at [facility] before leaving hospital. Plan: [facility] Non-Medicaid (HCBS) and [facility], RN/PT/OT/CASHIER CREDIT . Date Signed: 08/13/2018 02:07 PM Electronically Signed By:Sharlene Majano RN Intervention Information Intervention Type:*IM-Signed Date of Service:08/13/2018 02:33 PM Patient Type:Inpatient Staff Member:Ivet Martinez Hours: Discipline: Severity: Comment:
== END 2018-08-13 15:16 | disposition home health service (06) | DRG 698 ==
LOC: EDUNIT# → F1N 16:56 → OBSVTOIN 08-10 15:51
PROVIDERS: ADMIT Internal Medicine; ATTEND Internal Medicine
PROC: 0T9B70Z Drainage of Bladder with Drainage Device, Via Natural or Artificial Opening (ICD-10-PCS; principal; 2018-08-09)
DX: T83.598A Infection and inflammatory reaction due to other prosthetic device, implant and graft in urinary system, initial encounter (principal); A41.89 Other specified sepsis; N39.0 Urinary tract infection, site not specified; B96.1 Klebsiella pneumoniae [K. pneumoniae] as the cause of diseases classified elsewhere; N31.9 Neuromuscular dysfunction of bladder, unspecified; G35 Multiple sclerosis; E86.9 Volume depletion, unspecified; R19.7 Diarrhea, unspecified; E03.9 Hypothyroidism, unspecified; K59.00 Constipation, unspecified; Z88.0 Allergy status to penicillin; Z87.440 Personal history of urinary (tract) infections; Z87.891 Personal history of nicotine dependence; Z99.3 Dependence on wheelchair
CPT/HCPCS: 97162-GP; 97166-GO; 97530-GO; 97530-GP; 97535-GO; G0378; J1650; J1956; J2405